=== PATIENT | male | born 1950 | race Caucasian/White ===

== ENCOUNTER 2019-09-22 07:32 | Outpatient (CLI) | payer MEDICARE, OTHER, SELFPAY ==
--- NOTE | ~2019-09-22 | CT_ITS ---
EXAMINATION: CT lung screening EXAM DATE: 09/22/2019 07:57 INDICATION: Personal history of nicotine dependence. TECHNIQUE: Spiral low dose CT of the chest without contrast. Axial, coronal and sagittal images were reviewed. The dose-length product (DLP) for this examination was 144.93 mGy-cm. The exposure was t ailored according to patient size (auto mA exposure control), and iterative reconstruction (ASIR) was used as additional dose reduction technique. 07/04/2018 FINDINGS: There is moderate emphysema. Minimal biapical scarring. There is a right-sided aortic arch . Tracheobronchial tree is patent. There is no mediastinal, hilar or axillary lymphadenopathy. T here are no pleural or pericardial effusions. There is no pneumothorax. Heart normal in size. T here is mild coronary arterial calcification, arterial sclerosis. There are cholecystectomy clips. T here is mild thoracic spondylosis without osteoblastic or osteolytic lesions identified. IMPRESSION: Lung-RADS category 1, negative (<1%chance of malignancy); recommend continued LDCT screen ing in 1 year. Reviewed, dictated and finalized at location A. GER FIBER IMPRESSION: Lung-RADS category 1, negative (<1%chance of malignancy); recommend continued LDCT screening in 1 year.
== END 2019-09-22 07:33 | disposition home or self-care (01) ==
LOC: ANHIMG 07:36
PROVIDERS: PCP Family Medicine; Visit Provider Internal Medicine Critical Care Medicine
DX: Z09 Encounter for follow-up examination after completed treatment for conditions other than malignant neoplasm (principal); Z12.2 Encounter for screening for malignant neoplasm of respiratory organs; Z87.891 Personal history of nicotine dependence
CPT/HCPCS: G0297

== ENCOUNTER 2019-10-03 09:55 | Outpatient (CLI) | payer MEDICARE, SELFPAY ==
--- NOTE | ~2019-10-03 | CT_ITS ---
EXAMINATION: CT abdomen w con INDICATION: Unspecified abdominal pain, weight loss TECHNIQUE: Computed tomographic images of the abdomen were obtained after the administration of 100 c c of Omnipaque 350 intravenous contrast. The dose-length product (DLP) was 347.39 mGy-cm. Automated e xposure control and iterative reconstruction technique were employed. COMPARISON: None FINDINGS: Minimal dependent atelectasis is present in the lung bases. The heart size is normal. The g allbladder is surgically absent. Fluid attenuation lesions of the liver measuring up to 13 there are no pathologically enlarged abdominal lymph nodes. There is severe lumbar spondylosis. Mm are consiste nt with cysts. The spleen, pancreas, and adrenal glands are normal. The kidneys are unremarkable. IMPRESSION: 1. No CT correlate for the patient's symptoms. Reviewed, dictated and finalized at location A. GLUER
[2019-10-03 10:34] LABS: Blood Urea Nitrogen 19 mg/dL (8-26); Estimated Glomerular Filt Rate > 60
== END 2019-10-03 09:56 | disposition home or self-care (01) ==
PROVIDERS: PCP Family Medicine; Visit Provider Family Medicine
DX: R10.9 Unspecified abdominal pain (principal); R63.4 Abnormal weight loss
CPT/HCPCS: 74160; Q9967

== ENCOUNTER 2020-04-13 09:45 | Inpatient (IN) | payer OTHER, MEDICARE, SELFPAY ==
[2020-04-13] VITALS (9 sets, daily range): BP systolic 112–159; BP diastolic 70–77; PULSE 73–91; RESP 18–29; TEMP 37.1–37.6; O2SAT 93–100; BMI 26.4
--- NOTE | ~2020-04-13 | XR_ITS ---
EXAMINATION: XR chest 1V portable DATE: 04/13/2020 10:52 INDICATION: Shortness of breath and cough. TECHNIQUE: A single frontal view of the chest was obtained. COMPARISON: Chest 2 views 03/13/2019, chest CT 09/22/2019 FINDINGS: The lungs are hyperexpanded with lucencies, consistent with emphysema. No pleural effusion. The heart size is normal. There is a right-sided aortic arch. IMPRESSION: 1. Emphysema. Reviewed, dictated and finalized at location B. IMPRESSION: 1. Emphysema.
--- NOTE | 2020-04-13 09:49 | ECG_ITS ---
Measurements Intervals [place] Rate: 88 P: 84 FL: 198 QRS: 37 QRSD: 91 T: 66 QT: 329 QTc: 400 Interpretive Statements SINUS RHYTHM BORDERLINE AV CONDUCTION DELAY BASELINE ARTIFACT- II, III, AVR, AVL, AVF, V1 BORDERLINE ECG Electronically Signed On 04-13-2020 10:23:44 CDT by Juve Saldana D.O.
[2020-04-13] MEDS: LACTATED RINGERS 1,000 ML 999 ML IV CONT (10:23)
[2020-04-13 10:38] LABS: Base Excess ABG -0.5 mEq/l (+/-2.0); Carboxyhemoglobin 1.2 % THb (0-2.0); Device ROOM AIR; Fractional Inspired Oxygen 21 %; HCO3 ABG 23.9 mEq/l (22.0-26.0); Methemoglobin ABG 0.1 %THb (0-1.5); Oxygen Content ABG 17.7 %vol (16.0-22.0); Oxygen Saturation ABG 89.7 % (95.0-100.0); Oxyhemoglobin 89.8 % THb (90.0-100.0); PCO2 ABG 38.7 mmHg (35.0-45.0); PO2 ABG 56.4 mmHg (80.0-100.0); PO2 FiO2 Ratio Arterial Blood 2.69 %; Reduced Hemoglobin 8.9 %THb (0-5.0); Site Drawn LEFT BRACHIAL; pH ABG 7.409 (7.350-7.450)
--- NOTE | 2020-04-13 10:44 | PC.NURSE ---
Pt placed on 2 L NC O2 due to O2 sat 89% on room air.
[2020-04-13 10:47] LABS: Basophils Percent Auto 0.4 % (0.2-1.2); Eosinophils Percent Auto 0.4 % (0-4.4); Hematocrit 42.2 % (42.0-52.0); Hemoglobin 13.8 g/dL (14.0-18.0); Immature Granulocyte Absolute 0.06 K/mm3 (0.00-0.031); Immature Granulocyte Percent A 0.6 % (0-0.5); Lymphocytes Absolute Auto 1.17 K/mm3 (0.9-3.2); Lymphocytes Percent Auto 11.4 % (18.3-44.2); Mean Corpuscular HGB Conc 32.7 g/dl (32-36); Mean Corpuscular Hemoglobin 28.8 pg (26-34); Mean Corpuscular Volume 87.9 fl (80-100); Monocytes Absolute Auto 0.8 K/mm3 (0.1-0.6); Monocytes Percent Auto 7.6 % (2.6-8.5); Neutrophils Absolute Auto 8.2 K/mm3 (1.3-6.7); Neutrophils Percent Auto 79.6 % (45.5-73.1); Platelet Count Result 175 k/mm3 (150-375); Red Cell Distribution Width 13.4 % (11.5-14.5); White Blood Count 10.2 K/mm3 (4.5-10.0)
[2020-04-13 10:53] LABS: Add Urine Microscopic? NO; Appearance Urine Clear (Clear); Bilirubin Urine Negative (Negative); Blood Urine Negative (Negative); Color Urine Yellow (Yellow); Glucose Urine UA Negative (Negative); Ketones Urine Negative (Negative); Leukocyte Esterase Ur Negative LEU/UL (Negative); Nitrate Urine Negative (Negative); Protein Urine Negative (Negative); Specific Grav Ur 1.024 (1.001-1.035); Urobilinogen Urine Negative mg/dL (<2.0)
[2020-04-13 10:59] LABS: Prothrombin Time 13.1 Seconds (11.1-14.7)
[2020-04-13 11:00] LABS: Partial Thromboplastin Time 26.9 SECONDS (22.3-36.8)
[2020-04-13 11:00] LABS: Lactic Acid Reflex 0.8 mmol/L (0.7-2.1)
[2020-04-13 11:11] LABS: Alanine Aminotransferase 20 U/L (4-50); Albumin Level 3.9 g/dL (3.5-5.1); Alkaline Phosphatase 74 U/L (38-126); Anion Gap 7 mmol/L (8-16); Aspartate Amino Transferase 27 U/L (17-59); Bilirubin,Total 0.8 mg/dL (0.2-1.3); Blood Urea Nitrogen 17 mg/dL (9-20); CRP 1.9 mg/dL (<1.0); Calcium 8.6 mg/dL (8.4-10.2); Carbon Dioxide 25 mmol/L (22-30); Chloride 105 mmol/L (98-107); Estimated CRCL calculation 76 ml/min; Estimated Glomerular Filt Rate > 60; Glucose 120 mg/dL (75-110); Lipase 81 U/L (23-300); Potassium 3.9 mmol/L (3.4-5.0); Sodium 137 mmol/L (137-145)
--- NOTE | 2020-04-13 12:18 | ED.GENADULT ---
HPI - General Adult General Chief complaint: Shortness of Breath/Dyspnea <Douglas Walden PA-C - Last Filed: 04/13/20 12:34> Stated complaint: SOB <Douglas Walden PA-C - Last Filed: 04/13/20 12:34> Time Seen by Provider: 04/13/20 10:09 <Douglas Walden PA-C - Last Filed: 04/13/20 12:34> Source: patient <Douglas Walden PA-C - Last Filed: 04/13/20 12:34> Mode of arrival: ambulatory <Douglas Walden PA-C - Last Filed: 04/13/20 12:34> Limitations: no limitations <Douglas Walden PA-C - Last Filed: 04/13/20 12:34> History of Present Illness HPI narrative: Patient is a 70-year-old male who presents per EMS for evaluation of dyspnea which began with runny nose cough congestion patient with history of COPD wears 2 L nasal cannula. Patient denies any pain patient denies sick contacts. Patient notes that the symptoms worsen with activity patient denies any vomiting notes he has had a few loose stools. . Patient denies any chest pain <Douglas Waldne PA-C - Last Filed: 04/13/20 12:34> Related Data Home medications: Home Medications Medication Instructions Recorded Confirmed gabapentin 100 mg PO TID 04/13/20 04/13/20 <HEBER Villegas Last Filed: 04/13/20 12:34> Allergies/adverse reactions: Allergies Allergy/AdvReac Type Severity Reaction Status Date / Time No Known Allergies Allergy Verified 04/13/20 15:19 <Douglas Walden PA-C - Last Filed: 04/13/20 12:34> Review of Systems Review of Systems: All systems reviewed & are unremarkable except as noted in HPI and below <Douglas Walden PA-C - Last Filed: 04/13/20 12:34> [facility] Past Medical History Medical History: Medical History Cholecystitis COPD (chronic obstructive pulmonary disease) Deviated nasal septum Emphysema of lung Fatigue First degree atrioventricular block Lumbar spondylosis Palmar fibromatosis Tobacco abuse <Douglas Walden PA-C - Last Filed: 04/13/20 12:34> Surgical History Surgical History: Surgical History History of bladder surgery History of prostate surgery Hx laparoscopic cholecystectomy Hx of abdominal prostatectomy <Douglas Walden PA-C - Last Filed: 04/13/20 12:34> Social History Social History: Social History Social History: Single 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 day: 1 Smoking cigarettes per day: 20.0 Years smoked: 49 Smoking pack-years: 49.00 Smoking status: Former smoker Tobacco type: cigarettes Second hand tobacco smoke exposure: Yes Smoking end date: 08/19/11 Alcohol intake: current Drinks per week: 6 Substance use: never Substance use type: does not use Gender identity (if verbalized by the patient): Male Spiritual care concerns: No <Douglas Walden PA-C - Last Filed: 04/13/20 12:34> Exam Narrative: Exam Narrative: GENERAL: Ill-appearing, well-nourished, and in no acute distress. HEAD: Normocephalic, atraumatic. EYES: PERRLA and EOMI. ENT: Nares clear, no rhinorrhea or epistaxis. Mucous membranes moist. Oropharynx without tonsillar hypertrophy exudate or other lesions. NECK: Supple. No adenopathy or masses. CHEST: Diminished on auscultation. Mild respiratory distress. Fine wheezes throughout no rales or rhonchi HEART: Regular rate and rhythm. No murmur heard. Normal peripheral pulses. ABDOMEN: Soft, nontender, nondistended EXTREMITIES: Normal range of motion. No edema. SKIN: Warm, dry, no rash. NEURO: No focal deficits. Alert and oriented x3. PSYCH: Normal mood and affect. <Douglas Walden PA-C - Last Filed: 04/13/20 12:34> Course Course Emergency Course: Patient in the room at this time aware of case findings treatment plan and diagnosis will be placed in hospital for COPD exacerbation while ruling out COPD c
[2020-04-13] MEDS: methylPREDNISolone SOD SUCC 125 MG VIAL IV PUSH (12:57)
--- NOTE | 2020-04-13 14:15 | ADMGEN ---
This patient, Stacy Peck II, was admitted to [facility] Surg Room 324-01. Patient/family oriented to hospital policies and general routines including ID bracelet, bed and alarms, visiting hours, pain management, procedures, bathroom and other care routines, personal items, smoking policy, room service/diet, and visiting hours. Valuables list has been completed. Information on how to activate the Rapid Response Team has been discussed. Patient/Family are encouraged to report perceived risks to care and to ask questions if they do not understand what they are told or what they should do.
[2020-04-13] MEDS: LACTATED RINGERS 1,000 ML 75 ML IV CONT (15:23)
[2020-04-13] MEDS: ALBUTEROL SULFATE (*SP) INHALER 6 PUFF INHALATION ×2 (16:56→20:59)
--- NOTE | 2020-04-13 20:58 | PM.IMHP ---
H&P: HPI History of Present Illness Date/Time: 04/13/20 20:58 Chief complaint: copd exacerbation,fever,hypoxemia Narrative: Stacy Peck II is a 70 year old male with a past medical history of COPD, dementia, and hyperlipidemia who presented to the ER with 3 days of cold symptoms and shortness of breath. the patient reports a 2 days ago he began having significant rhinorrhea and a mild tickling cough. The next day his cough worsened. he reports that the cough has been productive of small amount of green sputum. He was last hospitalized for COPD exacerbation February 2019. He called off of work due to his symptoms. He was not having any fevers or chills. He denies any known COVID-19 exposures. 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 He denies any nausea or vomiting. He has been having normal bowel movements without hematochezia or melena. He has been having some chest tightness and discomfort associated with his cough. He denies any orthopnea or paroxysmal nocturnal dyspnea. He has been more fatigued. He denies any headache or visual changes. He has not noticed any lower extremity swelling or pain. He has noticed weaker urinary stream and difficulty initiating urinary stream at times. He used to be on Flomax many years ago but stopped this medication I suspect he stopped it after his prostate surgery. He also has intermittent episodes of incomplete bladder emptying . He does not usually have difficulty with nocturia. He denies any dysuria or hematuria. The patient was recently started on Aricept due to episodes of confusion. He is having difficulty remembering directions in remembering which exits he needs to get off to go to his various stops for his job. He has been going to the same destination is for quite some time but cannot remember how to get there. Review of Systems Review of Systems: Narrative: 12 systems were reviewed with pertinent positives and negatives per HPI. Except as documented in the HPI, all other systems were reviewed and are negative. [facility] Past Medical History Medical History (Updated 04/13/20 @ 21:15 by Rina Chanel DO) Dementia 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 Hyperlipidemia Lumbar spondylosis Palmar fibromatosis Peripheral neuropathy Tobacco abuse quit 2012 Surgical History Surgical History (Updated 04/14/20 @ 09:13 by Rina Chanel DO) History of bladder surgery Due to bladder lesion History of nasal septoplasty History of prostatectomy Hx laparoscopic cholecystectomy Family History Family History Mother Cerebrovascular accident Heart disease Breast cancer Father Liver disease Grandparent Malignant neoplasm of prostate Sibling Coronary artery disease brother Diabetes mellitus Psychiatric illness sister Social History Social History (Updated 04/14/20 @ 09:17 by Rina Chanel DO) Social History: The patient is and lives with a female friend and her 2 pit bulls. He has a 52 pack per year smoking history. He started smoking between ages 9 in 10 and quit smoking in 2012. He drinks 2-6 beers a week on average. 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 day: 1 Smoking cigarettes per day: 20.0 Years smoked: 52 Smoking pack-years: 52.00 Smoking status: Former smoker Tobacco type: cigarettes Second hand tobacco smoke exposure: Yes Smoking end date: 08/19/12 Alcohol intake: current Drinks per week: 6 Substance use: never Substance use type: does not use Gender identity (if verbalized by the patient): Male Spiritual care concerns: No Meds Home Medications and Allergies Home Medications Medication Instructions Recorded Confirmed Type fluticasone fur. 100 mcg-umeclid 1 inhalation INHALATION D
[2020-04-13] MEDS: FAMOTIDINE 20 MG/2 ML VIAL IV PUSH (21:08)
[2020-04-13] MEDS: GABAPENTIN 100 MG CAPSULE PO (21:58)
[2020-04-13] MEDS: DONEPEZIL HCL 5 MG TABLET PO (21:58)
[2020-04-13 22:47] LABS: SARS-CoV-2 RNA PCR Negative
[2020-04-14] VITALS (8 sets, daily range): BP systolic 123–148; BP diastolic 60–64; PULSE 77–99; RESP 18–20; TEMP 36.6–36.8; O2SAT 94–96
[2020-04-14] MEDS: LACTATED RINGERS 1,000 ML 75 ML IV CONT (03:48)
[2020-04-14 08:23] LABS: Basophils Percent Auto 0.2 % (0.2-1.2); Hematocrit 40.1 % (42.0-52.0); Hemoglobin 13.1 g/dL (14.0-18.0); Immature Granulocyte Absolute 0.03 K/mm3 (0.00-0.031); Immature Granulocyte Percent A 0.3 % (0-0.5); Lymphocytes Absolute Auto 0.84 K/mm3 (0.9-3.2); Lymphocytes Percent Auto 8.8 % (18.3-44.2); Mean Corpuscular HGB Conc 32.7 g/dl (32-36); Mean Corpuscular Hemoglobin 28.7 pg (26-34); Mean Corpuscular Volume 87.7 fl (80-100); Monocytes Absolute Auto 1.2 K/mm3 (0.1-0.6); Monocytes Percent Auto 12.5 % (2.6-8.5); Neutrophils Absolute Auto 7.5 K/mm3 (1.3-6.7); Neutrophils Percent Auto 78.2 % (45.5-73.1); Platelet Count Result 152 k/mm3 (150-375); Red Blood Count 4.57 M/mm3 (4.6-6.20); Red Cell Distribution Width 13.4 % (11.5-14.5); White Blood Count 9.6 K/mm3 (4.5-10.0)
[2020-04-14 08:43] LABS: Anion Gap 6 mmol/L (8-16); Blood Urea Nitrogen 16 mg/dL (9-20); Calcium 8.3 mg/dL (8.4-10.2); Carbon Dioxide 27 mmol/L (22-30); Chloride 105 mmol/L (98-107); Estimated CRCL calculation 85 ml/min; Estimated Glomerular Filt Rate > 60; Glucose 150 mg/dL (75-110); Magnesium 1.8 mg/dL (1.6-2.3); Potassium 3.9 mmol/L (3.4-5.0); Sodium 138 mmol/L (137-145)
[2020-04-14] MEDS: ALBUTEROL SULFATE (*SP) INHALER 6 PUFF INHALATION ×4 (08:55→21:26)
[2020-04-14] MEDS: ENOXAPARIN 40 MG/0.4 ML SYRINGE SUB-Q (10:24)
[2020-04-14] MEDS: FAMOTIDINE 20 MG/2 ML VIAL IV PUSH (10:24)
[2020-04-14] MEDS: DONEPEZIL HCL 5 MG TABLET PO ×2 (10:25→17:55)
[2020-04-14] MEDS: GABAPENTIN 100 MG CAPSULE PO ×3 (10:25→17:55)
[2020-04-14] MEDS: ATORVASTATIN 20 MG TABLET PO (10:25)
--- NOTE | 2020-04-14 12:11 | PM.IMPN ---
Progress Note: A&P Assessment and Plan (1) COPD exacerbation: Code(s): J44.1 - Chronic obstructive pulmonary disease with (acute) exacerbation Status: Acute Assessment and Plan: COVID testing negative today. The patient received 1 dose of IV Solu-Medrol in the ER. He thinks he has slight improvement today, but still SOB and having sputum production. Will place the patient on 60 mg IV Solu-Medrol q.8 hours. Will order albuterol inhaler 6 puffs Q 6 hours and Spiriva. Will continue patient's home Trelegy inhaler. Will also place on IV Rocephin for now or mild-mod COPD exacerbation; monitor for improvement (2) Hypoxemia: Code(s): R09.02 - Hypoxemia Status: Acute Assessment and Plan: without actual hypoxia. Possibly due to slightly mixed specimen. Treat COPD exacerbation as above Wean O2 as tolerated (3) Dementia: Code(s): F03.90 - Unspecified dementia without behavioral disturbance Status: Acute Assessment and Plan: No acute issues Continue home medications (4) Hyperlipidemia: Code(s): E78.5 - Hyperlipidemia, unspecified Status: Acute Assessment and Plan: LFTs wnl Continue statin (5) Peripheral neuropathy: Code(s): G62.9 - Polyneuropathy, unspecified Status: Acute Assessment and Plan: No acute issues continue home gabapentin Subjective Date/time seen: 04/14/20 12:11 Interval history: Patient is a 70 yo M with history of COPD, dementia, and hyperlipidemia who is here for treatment of COPD exacerbation and COVID r/o; COVID testing negative today. Patient states he feels slightly better today. Still SOB and cough with green/yellow sputum. No other complaints at the moment. Denies subjective f/c/s, myalgias/arthralgias, headaches, dizziness, lightheadedness, changes in v/h, cp/palpitations, n/v/d/c, abd pain, changes in BMs, dysuria, hematuria, cloudy urine, calf pain/swelling. Review of Systems Review of Systems: All systems reviewed & are unremarkable except as noted in HPI and below Exam Narrative: Exam Narrative: General: Patient resting supine in bed in no acute distress. Speaking in shortened sentences. Satting mid 90s on 2L O2 NC HEENT: Normocephalic, EOMI, oral mucosa moist. Cardiovascular: Rate and rhythm are regular. No notable murmur, rub, or gallop. Respiratory: Diffuse expiratory wheeze; diminished breath sounds in all lung curran. Non-labored breathing. Speaking in shortened sentences. Satting mid 90s on 2L O2 NC Abdomen: Soft, non-tender, non-distended, bowel sounds present. Extremities: Peripheral pulses intact. No edema. Neuro: No focal neurological deficits. Speech is clear. Objective Data Vital Signs Vital Signs: Last Vital Signs Temp 97.9 F 04/14/20 08:00 Pulse 77 04/14/20 08:00 Resp 20 04/14/20 08:00 BP 134/60 04/14/20 08:00 Pulse Ox 95 04/14/20 08:58 Intake/Output Intake/Output: Intake & Output 04/11/20 04/12/20 04/13/20 04/14/20 23:59 23:59 23:59 23:59 Intake Total 1220 1540 Output Total 600 Balance 1220 940 Meds/Results Medications: Active Medications Generic Name Dose Route Start Last Admin Trade Name Freq PRN Reason Stop Dose Admin Acetaminophen 650 mg 04/14/20 11:44 Tylenol Tablet PO Q6H PRN Mild Pain (1-3) or Fever Albuterol 6 puff 04/13/20 16:00 04/14/20 11:45 Proventil Hfa INHALATION 6 puff QIDRT COLTON Administration Atorvastatin Calcium 20 mg 04/14/20 09:00 04/14/20 10:25 Lipitor PO 20 mg DAILY COLTON Administration Donepezil HCl 5 mg 04/13/20 21:20 04/14/20 10:25 Aricept PO 5 mg BID COLTON Administration Enoxaparin Sodium 40 mg 04/14/20 09:00 04/14/20 10:24 Lovenox SUB-Q 40 mg JIAN
[2020-04-14] MEDS: methylPREDNISolone SOD SUCC 125 MG VIAL 60 MG IV PUSH ×2 (14:18→22:04)
[2020-04-15] VITALS (8 sets, daily range): BP systolic 133–143; BP diastolic 60–66; PULSE 67–90; RESP 18–20; TEMP 36.4–36.9; O2SAT 91–96
[2020-04-15] MEDS: methylPREDNISolone SOD SUCC 125 MG VIAL 60 MG IV PUSH ×2 (06:20→21:00)
[2020-04-15 07:01] LABS: Hematocrit 36.5 % (42.0-52.0); Hemoglobin 11.7 g/dL (14.0-18.0); Immature Granulocyte Absolute 0.04 K/mm3 (0.00-0.031); Immature Granulocyte Percent A 0.5 % (0-0.5); Lymphocytes Absolute Auto 1.29 K/mm3 (0.9-3.2); Lymphocytes Percent Auto 16.6 % (18.3-44.2); Mean Corpuscular HGB Conc 32.1 g/dl (32-36); Mean Corpuscular Hemoglobin 28.4 pg (26-34); Mean Corpuscular Volume 88.6 fl (80-100); Mean Platelet Volume 10.5 fl (7.4-10.4); Monocytes Absolute Auto 0.4 K/mm3 (0.1-0.6); Monocytes Percent Auto 4.7 % (2.6-8.5); Neutrophils Absolute Auto 6.1 K/mm3 (1.3-6.7); Neutrophils Percent Auto 78.2 % (45.5-73.1); Platelet Count Result 157 k/mm3 (150-375); Red Blood Count 4.12 M/mm3 (4.6-6.20); Red Cell Distribution Width 13.7 % (11.5-14.5); White Blood Count 7.8 K/mm3 (4.5-10.0)
[2020-04-15 07:15] LABS: Alanine Aminotransferase 24 U/L (4-50); Albumin Level 3.5 g/dL (3.5-5.1); Alkaline Phosphatase 67 U/L (38-126); Anion Gap 6 mmol/L (8-16); Aspartate Amino Transferase 25 U/L (17-59); Bilirubin,Total 0.3 mg/dL (0.2-1.3); Blood Urea Nitrogen 21 mg/dL (9-20); Calcium 8.4 mg/dL (8.4-10.2); Carbon Dioxide 26 mmol/L (22-30); Chloride 105 mmol/L (98-107); Estimated CRCL calculation 76 ml/min; Estimated Glomerular Filt Rate > 60; Glucose 236 mg/dL (75-110); Potassium 4.4 mmol/L (3.4-5.0); Sodium 137 mmol/L (137-145)
[2020-04-15] MEDS: ALBUTEROL SULFATE (*SP) INHALER 6 PUFF INHALATION ×3 (08:44→15:28)
[2020-04-15] MEDS: GABAPENTIN 100 MG CAPSULE PO ×3 (10:17→18:13)
[2020-04-15] MEDS: DONEPEZIL HCL 5 MG TABLET PO ×2 (10:17→18:13)
[2020-04-15] MEDS: ATORVASTATIN 20 MG TABLET PO (10:17)
--- NOTE | 2020-04-15 13:24 | PM.IMPN ---
Progress Note: A&P Assessment and Plan (1) COPD exacerbation: Code(s): J44.1 - Chronic obstructive pulmonary disease with (acute) exacerbation Status: Acute Assessment and Plan: COVID testing negative this hospital stay. Afebrile. The patient received 1 dose of IV Solu-Medrol in the ER. Clinical improvement today Will decrease frequency of 60 mg IV Solu-Medrol to q.12 hours. Will order albuterol inhaler 6 puffs Q 6 hours and Spiriva. Will continue patient's home Trelegy inhaler if able to obtain from home; NF Will start PRN neb treatments Will continue IV Rocephin for now for mild-mod COPD exacerbation; monitor for improvement Add mucinex and PEP CPT (2) Hypoxemia: Code(s): R09.02 - Hypoxemia Status: Acute Assessment and Plan: without actual hypoxia. Possibly due to slightly mixed specimen. Treat COPD exacerbation as above Wean O2 as tolerated (3) Dementia: Code(s): F03.90 - Unspecified dementia without behavioral disturbance Status: Acute Assessment and Plan: No acute issues Continue home medications (4) Hyperlipidemia: Code(s): E78.5 - Hyperlipidemia, unspecified Status: Acute Assessment and Plan: LFTs wnl Continue statin (5) Peripheral neuropathy: Code(s): G62.9 - Polyneuropathy, unspecified Status: Acute Assessment and Plan: No acute issues continue home gabapentin Subjective Date/time seen: 04/15/20 13:24 Interval history: Patient is a 70 yo M with history of COPD, dementia, and hyperlipidemia who is here for treatment of COPD exacerbation and COVID r/o; COVID testing negative today. Patient states he feels better today. SOB better. Still has congestion and he is trying to cough up more sputum. Notes green/yellow sputum. No other complaints at the moment. Denies subjective f/c/s, myalgias/arthralgias, headaches, dizziness, lightheadedness, changes in v/h, cp/palpitations, n/v/d/c, abd pain, changes in BMs, dysuria, hematuria, cloudy urine, calf pain/swelling. Review of Systems Review of Systems: All systems reviewed & are unremarkable except as noted in HPI and below Exam Narrative: Exam Narrative: General: Patient resting supine in bed in no acute distress. Speaking in longer sentences today. Satting mid 90s on 2L O2 NC HEENT: Normocephalic, EOMI, oral mucosa moist. Cardiovascular: Rate and rhythm are regular. No notable murmur, rub, or gallop. Respiratory: Diffuse expiratory wheeze comparable to yesterday; diminished breath sounds in all lung curran. Non-labored breathing. Speaking in longer sentences. Satting mid 90s on 2L O2 NC Abdomen: Soft, non-tender, non-distended, bowel sounds present. Extremities: Peripheral pulses intact. No edema. Neuro: No focal neurological deficits. Speech is clear. Objective Data Vital Signs Vital Signs: Last Vital Signs Temp 97.5 F L 04/15/20 06:00 Pulse 78 04/15/20 08:47 Resp 18 04/15/20 06:00 BP 137/66 04/15/20 06:00 Pulse Ox 95 04/15/20 08:47 Intake/Output Intake/Output: Intake & Output 04/12/20 04/13/20 04/14/20 04/15/20 23:59 23:59 23:59 23:59 Intake Total 1220 3340 490 Output Total 1075 Balance 1220 8325 490 Meds/Results Medications: Active Medications Generic Name Dose Route Start Last Admin Trade Name Freq PRN Reason Stop Dose Admin Acetaminophen 650 mg 04/14/20 11:44 Tylenol Tablet PO Q6H PRN Mild Pain (1-3) or Fever Albuterol 6 puff 04/13/20 16:00 04/15/20 11:20 Proventil Hfa INHALATION 6 puff QIDRT COLTON Administration Albuterol 2.5 mg 04/15/20 13:20 Albuterol Sulf Neb 2.5mg/0.5ml INHALATION Q6HRT PRN Shortness Of Breath Atorvastatin Calcium 20 mg 04/14/20 09:00 0
[2020-04-15] MEDS: guaiFENesin 12 HR 600 MG TABCR 1200 MG PO ×2 (14:01→20:59)
[2020-04-15] MEDS: ALBUTEROL SULFATE NEB 2.5 MG/0.5 ML INH INHALATION ×2 (15:28→20:38)
[2020-04-15] MEDS: IPRATROPIUM BR 0.02% INH SOLN 0.5 MG/2.5 ML VIAL INHALATION ×2 (15:29→20:38)
[2020-04-16 06:00] VITALS: BP 131/64; PULSE 61; RESP 18; TEMP 36.8; O2SAT 93
[2020-04-16 06:50] LABS: Hematocrit 35.1 % (42.0-52.0); Hemoglobin 11.4 g/dL (14.0-18.0); Immature Granulocyte Absolute 0.07 K/mm3 (0.00-0.031); Immature Granulocyte Percent A 0.8 % (0-0.5); Lymphocytes Absolute Auto 1.79 K/mm3 (0.9-3.2); Lymphocytes Percent Auto 19.8 % (18.3-44.2); Mean Corpuscular HGB Conc 32.5 g/dl (32-36); Mean Corpuscular Hemoglobin 28.9 pg (26-34); Mean Corpuscular Volume 88.9 fl (80-100); Monocytes Absolute Auto 0.4 K/mm3 (0.1-0.6); Monocytes Percent Auto 4.6 % (2.6-8.5); Neutrophils Absolute Auto 6.8 K/mm3 (1.3-6.7); Neutrophils Percent Auto 74.8 % (45.5-73.1); Platelet Count Result 170 k/mm3 (150-375); Red Blood Count 3.95 M/mm3 (4.6-6.20); Red Cell Distribution Width 13.5 % (11.5-14.5); White Blood Count 9.1 K/mm3 (4.5-10.0)
[2020-04-16 06:52] LABS: Anion Gap 4 mmol/L (8-16); Blood Urea Nitrogen 23 mg/dL (9-20); Carbon Dioxide 27 mmol/L (22-30); Chloride 105 mmol/L (98-107); Estimated CRCL calculation 85 ml/min; Estimated Glomerular Filt Rate > 60; Glucose 207 mg/dL (75-110); Magnesium 1.9 mg/dL (1.6-2.3); Potassium 4.6 mmol/L (3.4-5.0); Sodium 136 mmol/L (137-145)
[2020-04-16] MEDS: ALBUTEROL SULFATE (*SP) INHALER 6 PUFF INHALATION ×2 (08:47→12:52)
[2020-04-16] MEDS: DONEPEZIL HCL 5 MG TABLET PO ×2 (09:01→16:50)
[2020-04-16] MEDS: ATORVASTATIN 20 MG TABLET PO (09:01)
[2020-04-16] MEDS: GABAPENTIN 100 MG CAPSULE PO ×3 (09:01→16:50)
[2020-04-16] MEDS: guaiFENesin 12 HR 600 MG TABCR 1200 MG PO ×2 (09:02→20:55)
[2020-04-16] MEDS: methylPREDNISolone SOD SUCC 125 MG VIAL 60 MG IV PUSH ×2 (09:02→20:55)
[2020-04-16 14:00] VITALS: BP 133/62; PULSE 88; RESP 18; TEMP 36.8; O2SAT 94
--- NOTE | 2020-04-16 16:19 | PM.IMPN ---
Progress Note: A&P Assessment and Plan (1) COPD exacerbation: Code(s): J44.1 - Chronic obstructive pulmonary disease with (acute) exacerbation Status: Acute Assessment and Plan: COVID testing negative this hospital stay. Afebrile. No satting in low-mid 90s on RA. Ambulating okay. Clinical improvement today, although still diffusely wheezing and he is still noting congestion Continue 60 mg Solu-Medrol q.12 hours IV Will do albuterol inhaler 6 puffs PRN Q 6 hours and Spiriva. Will continue patient's home Trelegy inhaler if able to obtain from home; NF Will start scheduled neb treatments per patient request Will continue IV Rocephin for now for mild-mod COPD exacerbation; monitor for improvement Continue mucinex and PEP CPT (2) Hypoxemia: Code(s): R09.02 - Hypoxemia Status: Acute Assessment and Plan: without actual hypoxia. Possibly due to slightly mixed specimen. Treat COPD exacerbation as above Supplemental O2 as needed (3) Dementia: Code(s): F03.90 - Unspecified dementia without behavioral disturbance Status: Acute Assessment and Plan: No acute issues Continue home medications (4) Hyperlipidemia: Code(s): E78.5 - Hyperlipidemia, unspecified Status: Acute Assessment and Plan: LFTs wnl Continue statin (5) Peripheral neuropathy: Code(s): G62.9 - Polyneuropathy, unspecified Status: Acute Assessment and Plan: No acute issues continue home gabapentin (6) Urinary hesitancy: Code(s): R39.11 - Hesitancy of micturition Status: Acute Assessment and Plan: He states he has had this in the past and was on Flomax at one time but unsure why he stopped this medication Will start 0.4 mg Flomax daily Monitor F/u with PCP Subjective Date/time seen: 04/16/20 16:19 Interval history: Patient is a 70 yo M with history of COPD, dementia, and hyperlipidemia who is here for treatment of COPD exacerbation and COVID r/o; COVID testing negative today. Patient states he feels better today, although still wheezing and congested. He is not quite comfortable going home yet, but thinks he is trending in the right direction and may be more comfortable tomorrow. SOB better and is on RA. Still has congestion and he is trying to cough up more sputum. Sputum white/green. Wishes to have scheduled neb treatments with PRN albuterol inhaled. He also is asking about restarting Flomax as he has difficulty starting a stream. He notes being on this at one time but is unsure why he stopped taking the medication. He has been up ambulating without difficulty as well. No other complaints at the moment. Denies subjective f/c/s, myalgias/arthralgias, headaches, dizziness, lightheadedness, changes in v/h, cp/palpitations, n/v/d/c, abd pain, changes in BMs, dysuria, hematuria, cloudy urine, calf pain/swelling. Review of Systems Review of Systems: All systems reviewed & are unremarkable except as noted in HPI and below Exam Narrative: Exam Narrative: General: Patient resting supine in bed in no acute distress. Sat low-mid 90s on RA. Comfortable HEENT: Normocephalic, EOMI, oral mucosa moist. Cardiovascular: Rate and rhythm are regular. No notable murmur, rub, or gallop. Respiratory: Diffuse expiratory wheeze improved from yesterday; diminished breath sounds in all lung curran. Non-labored breathing. Speaking in full sentences. Satting low-mid 90s on RA Abdomen: Soft, non-tender, non-distended, bowel sounds present. Extremities: Peripheral pulses intact. No edema. Neuro: No focal neurological deficits. Speech is clear. Objective Data Vital Signs Vital Signs: Last Vital Signs Temp 98.2 F 04/16/20 14:00
[2020-04-16] MEDS: TAMSULOSIN HCL 0.4 MG CAPSULE PO (18:48)
[2020-04-16] MEDS: IPRATROPIUM BR 0.02% INH SOLN 0.5 MG/2.5 ML VIAL INHALATION (20:07)
[2020-04-16] MEDS: ALBUTEROL SULFATE NEB 2.5 MG/0.5 ML INH INHALATION (20:07)
[2020-04-16 20:09] VITALS: PULSE 72; RESP 20; O2SAT 92
[2020-04-16 20:19] VITALS: PULSE 76; RESP 20
[2020-04-16 21:56] VITALS: BP 125/60; PULSE 81; RESP 16; TEMP 36.8; O2SAT 91
[2020-04-17] MEDS: ALBUTEROL SULFATE NEB 2.5 MG/0.5 ML INH INHALATION ×2 (02:31→09:31)
[2020-04-17 02:32] VITALS: PULSE 61; RESP 20
[2020-04-17] MEDS: IPRATROPIUM BR 0.02% INH SOLN 0.5 MG/2.5 ML VIAL INHALATION ×2 (02:32→09:31)
[2020-04-17 02:41] VITALS: PULSE 66; RESP 20
[2020-04-17 06:00] VITALS: BP 154/71; PULSE 79; RESP 16; TEMP 36.8; O2SAT 93
[2020-04-17 07:12] LABS: Basophils Percent Auto 0.4 % (0.2-1.2); Hemoglobin 11.9 g/dL (14.0-18.0); Immature Granulocyte Absolute 0.23 K/mm3 (0.00-0.031); Immature Granulocyte Percent A 2.3 % (0-0.5); Lymphocytes Absolute Auto 2.11 K/mm3 (0.9-3.2); Lymphocytes Percent Auto 20.8 % (18.3-44.2); Mean Corpuscular HGB Conc 32.2 g/dl (32-36); Mean Corpuscular Hemoglobin 28.4 pg (26-34); Mean Corpuscular Volume 88.3 fl (80-100); Mean Platelet Volume 10.7 fl (7.4-10.4); Monocytes Absolute Auto 0.6 K/mm3 (0.1-0.6); Monocytes Percent Auto 5.4 % (2.6-8.5); Neutrophils Absolute Auto 7.2 K/mm3 (1.3-6.7); Neutrophils Percent Auto 71.1 % (45.5-73.1); Platelet Count Result 183 k/mm3 (150-375); Red Blood Count 4.19 M/mm3 (4.6-6.20); Red Cell Distribution Width 13.4 % (11.5-14.5); White Blood Count 10.1 K/mm3 (4.5-10.0)
[2020-04-17 08:26] LABS: Anion Gap 5 mmol/L (8-16); Blood Urea Nitrogen 22 mg/dL (9-20); Calcium 8.2 mg/dL (8.4-10.2); Carbon Dioxide 28 mmol/L (22-30); Chloride 104 mmol/L (98-107); Estimated CRCL calculation 76 ml/min; Estimated Glomerular Filt Rate > 60; Glucose 204 mg/dL (75-110); Potassium 4.3 mmol/L (3.4-5.0); Sodium 137 mmol/L (137-145)
[2020-04-17] MEDS: GABAPENTIN 100 MG CAPSULE PO ×2 (08:59→12:46)
[2020-04-17] MEDS: DONEPEZIL HCL 5 MG TABLET PO (08:59)
[2020-04-17] MEDS: ATORVASTATIN 20 MG TABLET PO (08:59)
[2020-04-17] MEDS: TAMSULOSIN HCL 0.4 MG CAPSULE PO (08:59)
[2020-04-17] MEDS: methylPREDNISolone SOD SUCC 125 MG VIAL 60 MG IV PUSH (08:59)
[2020-04-17] MEDS: guaiFENesin 12 HR 600 MG TABCR 1200 MG PO (08:59)
[2020-04-17 09:32] VITALS: PULSE 81; RESP 16; O2SAT 94
[2020-04-17 09:37] VITALS: PULSE 89; RESP 18
--- NOTE | 2020-04-17 12:16 | PM.DS ---
DS: Admitting Diagnosis Admitting Diagnosis Admitting Diagnosis: copd exacerbation,fever,hypoxemia DS: Discharge Diagnosis Discharge Diagnosis (1) COPD exacerbation: Code(s): J44.1 - Chronic obstructive pulmonary disease with (acute) exacerbation Status: Acute Assessment and Plan: COVID testing negative this hospital stay. Afebrile. No satting in low-mid 90s on RA. Ambulating okay. Clinical improvement today, although still diffusely wheezing and he is still noting congestion, but improving D/c today Will do prednisone taper Continue home meds Will do cefdinir through 04/20 Recommended continue mucinex and PEP CPT F/u with PCP and Snout Puller as outpatient (2) Hypoxemia: Code(s): R09.02 - Hypoxemia Status: Acute Assessment and Plan: without actual hypoxia. Possibly due to slightly mixed specimen. Treat COPD exacerbation as above Supplemental O2 as needed (3) Dementia: Code(s): F03.90 - Unspecified dementia without behavioral disturbance Status: Acute Assessment and Plan: No acute issues Continue home medications (4) Hyperlipidemia: Code(s): E78.5 - Hyperlipidemia, unspecified Status: Acute Assessment and Plan: LFTs wnl Continue statin (5) Peripheral neuropathy: Code(s): G62.9 - Polyneuropathy, unspecified Status: Acute Assessment and Plan: No acute issues continue home gabapentin (6) Urinary hesitancy: Code(s): R39.11 - Hesitancy of micturition Status: Acute Assessment and Plan: He states he has had this in the past and was on Flomax at one time but unsure why he stopped this medication will send home with flomax on discharge F/u with PCP DS: Summary Hospital Course Reason for hospitalization: COPD exacerbation Hospital Course: Patient is a 70 yo M with history of COPD, dementia, and hyperlipidemia who presented to the ER on 04/13 with 3 days of cold symptoms and shortness of breath. While in the ED, patient was tested for COIVD (found to be negative) for his reported respiratory symptoms and history. COPD exacerbation suspected and was started on Iv steroids, bronchodilator inhalers, and initially placed on droplet prec (no neb treatments). Placed on supplemental oxygen 2L O2 NC initially. Patient admitted under this setting. Please see H&P for further details. Presenting VS: Temp Pulse Resp BP Pulse Ox 99.1 F 84 23 H 159/77 H 93 04/13/20 09:50 04/13/20 09:50 04/13/20 09:50 04/13/20 09:50 04/13/20 09:50 Presenting Pertinent labs: COVID testing negative. ABG notable for 56.4 pO2 although felt to be mixed specimen. WBC 10.2k. CBC, coag, chemistry, ABG, UA otherwise unremarkable Micro: BCx negative x2 after 5 days Imaging: Chest X-Ray 04/13/20 10:58 IMPRESSION: 1. Emphysema. ECG: Interpretive Statements SINUS RHYTHM BORDERLINE AV CONDUCTION DELAY BASELINE ARTIFACT- II, III, AVR, AVL, AVF, V1 BORDERLINE ECG Patient was admitted to the hospitalist service for further evaluation and treatment of COPD exacerbation. Patient continued with IV steroid therapy during stay and was discharged on a prednisone taper. He was placed on neb treatments after COVID testing was negative and taken of droplet precautions. Mucinex, CPT PEP, and supplemental oxygen continued during stay. He was weaned to RA on 04/16. He was also placed on IV rocephin for moderate COPD exacerbation. Patient had significant clinical improvement in his respiratory status by discharge. He also complained of urinary hesitancy and was placed on Flomax; this was prescribed at discharge as well. Plan was for him to follow up with PCP and his Snout Puller after discharge. He was given a prednisone t
== END 2020-04-17 14:20 | disposition home or self-care (01) | DRG 192 ==
LOC: ANHED 12:34 → ANH3MEDSUR 14:08
PROVIDERS: Emergency Medicine Emergency Medical Services; Physician Assistant; Admitting Provider Internal Medicine; Emergency Provider General Practice; PCP Family Medicine; Visit Provider Internal Medicine
DX: J43.9 Emphysema, unspecified (principal); Z20.828 Contact with and (suspected) exposure to other viral communicable diseases; R09.02 Hypoxemia; E78.5 Hyperlipidemia, unspecified; F03.90 Unspecified dementia, unspecified severity, without behavioral disturbance, psychotic disturbance, mood disturbance, and anxiety; G62.9 Polyneuropathy, unspecified; R39.11 Hesitancy of micturition; M47.896 Other spondylosis, lumbar region; I44.0 Atrioventricular block, first degree; Z87.891 Personal history of nicotine dependence; Z90.49 Acquired absence of other specified parts of digestive tract
CPT/HCPCS: 36415; 36600; 71045; 80048; 80053; 81003; 82375; 82805; 83050; 83605; 83690; 83735; 85025; 85610; 85730; 86140; 87040; 87635; 93005; 94640; 94667; 96361; 96365; 96375; 97161; 97165; 99285; A9270; C9803; J0131; J0696; J1650; J2930; J7120; U0003

== ENCOUNTER 2020-04-26 21:17 | Emergency (ER) | payer OTHER, MEDICARE, SELFPAY ==
[2020-04-26] VITALS (7 sets, daily range): BP systolic 102–129; BP diastolic 54–77; PULSE 79–100; RESP 15–28; TEMP 36.9–37.1; O2SAT 92–94
--- NOTE | ~2020-04-26 | XR_ITS ---
EXAMINATION: XR chest 2V EXAM DATE: 04/26/2020 21:56 INDICATION: Shortness of breath, congestion. TECHNIQUE: Frontal and lateral projections of the chest obtained and reviewed. Comparison is made to prior examination from 04/13/2020. FINDINGS: Moderate hyperinflation. There are cholecystectomy clips. The lungs are clear. There are no pleural effusions. Normal heart size. Patient has a right-sided or bifurcated aortic arch, congeni megan variant There is no pneumothorax suspected. The bones and soft tissues are unremarkable. There is no significant interval change. IMPRESSION: 1. No acute cardiopulmonary findings. 2. Hyperinflation. Reviewed, dictated and finalized at location A.
--- NOTE | 2020-04-26 21:20 | ECG_ITS ---
Measurements Intervals [place] Rate: 89 P: 83 FL: 180 QRS: -5 QRSD: 81 T: 67 QT: 313 QTc: 382 Interpretive Statements SINUS RHYTHM LOW VOLTAGE- LIMB LEADS BORDERLINE ECG Electronically Signed On 04-27-2020 7:19:00 CDT by Juve Saldana D.O.
--- NOTE | 2020-04-26 21:26 | ED.SOB ---
HPI - SOB/Dyspnea General Chief Complaint: Shortness of Breath/Dyspnea Stated Complaint: congestion Time Seen by Provider: 04/26/20 21:26 History of Present Illness HPI Narrative: 70 yo male w/ COPD presents to the ED for cough and SOLIS. He reports that he has had a cough and chest congestion for 10 days. He was admitted to the hospital near the begining of his symptoms. He was started on antibiotics and prednisone. He reports that he has not had any improvement in his cough and he is nt able to maintain his normal activity level. No fever, chest pain, leg swelling. Related Data Home Medications Medication Instructions Recorded Confirmed gabapentin 100 mg PO TID 04/13/20 04/22/20 Allergies Allergy/AdvReac Type Severity Reaction Status Date / Time No Known Allergies Allergy Verified 04/13/20 15:19 Review of Systems Review of Systems: All systems reviewed & are unremarkable except as noted in HPI and below Constitutional: Constitutional: Denies fever(s) ENT: Denies sore throat Cardiovascular: Cardiovascular: Denies chest pain Respiratory: Respiratory: Reports chest congestion, Reports cough and Reports dyspnea Gastrointestinal: Gastrointestinal: Denies abdominal pain and Denies nausea Musculoskeletal: Musculoskeletal: Denies back pain Neurologic: Denies dizziness and Denies weakness PMFSH Past Medical History Medical History Dementia 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 Hyperlipidemia Lumbar spondylosis Palmar fibromatosis Peripheral neuropathy Tobacco abuse quit 2012 Surgical History Surgical History History of bladder surgery Due to bladder lesion History of nasal septoplasty History of prostatectomy Hx laparoscopic cholecystectomy Family History Family History Mother Cerebrovascular accident Heart disease Breast cancer Father Liver disease Grandparent Malignant neoplasm of prostate Sibling Coronary artery disease brother Diabetes mellitus Psychiatric illness sister Social History Social History Social History: The patient is and lives with a female friend and her 2 pit bulls. He has a 52 pack per year smoking history. He started smoking between ages 9 in 10 and quit smoking in 2012. He drinks 2-6 beers a week on average. 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 day: 1 Smoking cigarettes per day: 20.0 Years smoked: 52 Smoking pack-years: 52.00 Smoking status: Former smoker Tobacco type: cigarettes Second hand tobacco smoke exposure: Yes Smoking end date: 08/19/12 Alcohol intake: current Drinks per week: 6 Substance use: never Substance use type: does not use Gender identity (if verbalized by the patient): Male Spiritual care concerns: No Exam Const: General: no acute distress and alert Orientation/consciousness: patient oriented x3 HENMT: Head: normal to inspection Chest: Chest palpation & inspection: normal inspection of the chest Resp: Effort & Inspection: normal respiratory effort Auscultation: wheezes Cardio: Rate: regular rate Rhythm: regular rhythm GI: GI Palp: Yes Soft to palpation and No Tenderness to palpation present (GI) Skin: General skin exam: normal color Neuro: General: patient oriented x3, no focal motor deficits and CN's II-XI intact bilaterally Speech: normal speech Extrem: General: normal to inspection and no edema Course Vital Signs Vital signs: Vital Signs Temperature 36.9 C 04/26/20 21:21 Pulse Rate 96 04/26/20 21:21 Respiratory Rate 15 04/26/20 21:21 Blood Pressure 129/77 04/26/20 21:21 Pulse Oximetry 93 04/26/20 21:21
[2020-04-26 21:33] LABS: Basophils Percent Auto 0.3 % (0.2-1.2); Eosinophils Absolute Auto 0.1 K/mm3 (0-0.3); Eosinophils Percent Auto 0.8 % (0-4.4); Hematocrit 46.8 % (42.0-52.0); Immature Granulocyte Absolute 0.16 K/mm3 (0.00-0.031); Immature Granulocyte Percent A 1.1 % (0-0.5); Lymphocytes Absolute Auto 3.98 K/mm3 (0.9-3.2); Lymphocytes Percent Auto 26.6 % (18.3-44.2); Mean Corpuscular HGB Conc 32.1 g/dl (32-36); Mean Corpuscular Volume 90.3 fl (80-100); Mean Platelet Volume 9.8 fl (7.4-10.4); Monocytes Absolute Auto 1.2 K/mm3 (0.1-0.6); Monocytes Percent Auto 7.8 % (2.6-8.5); Neutrophils Absolute Auto 9.5 K/mm3 (1.3-6.7); Neutrophils Percent Auto 63.4 % (45.5-73.1); Platelet Count Result 226 k/mm3 (150-375); Red Blood Count 5.18 M/mm3 (4.6-6.20)
[2020-04-26 21:43] LABS: Anion Gap 7 mmol/L (8-16); Blood Urea Nitrogen 21 mg/dL (9-20); Carbon Dioxide 31 mmol/L (22-30); Chloride 101 mmol/L (98-107); Estimated CRCL calculation 54 ml/min; Estimated Glomerular Filt Rate 55; Glucose 181 mg/dL (75-110); Potassium 4.5 mmol/L (3.4-5.0); Sodium 139 mmol/L (137-145)
[2020-04-26 21:52] LABS: NT Pro B Type Natriuretic Pept 117 PG/ML (5-100)
[2020-04-27 01:00] VITALS: BP 117/71; PULSE 75; RESP 24; O2SAT 93
[2020-04-27 01:45] VITALS: BP 122/75; PULSE 74; RESP 23; TEMP 36.4; O2SAT 93
== END 2020-04-27 01:48 | disposition home or self-care (01) ==
PROVIDERS: Emergency Medicine; Emergency Provider Emergency Medicine; PCP Family Medicine
DX: J44.9 Chronic obstructive pulmonary disease, unspecified (principal); F03.90 Unspecified dementia, unspecified severity, without behavioral disturbance, psychotic disturbance, mood disturbance, and anxiety; E78.5 Hyperlipidemia, unspecified; Z87.891 Personal history of nicotine dependence
CPT/HCPCS: 36415; 71046; 80048; 83880; 85025; 93005; 99284

== ENCOUNTER 2020-07-05 20:10 | Emergency (ER) | payer OTHER, MEDICARE, SELFPAY ==
--- NOTE | ~2020-07-05 | XR_ITS ---
EXAMINATION: XR chest 1V portable DATE: 07/05/2020 21:43 INDICATION: Cough, dyspnea and body aches TECHNIQUE: frontal view of the chest was obtained. COMPARISON: Chest radiograph dated 04/26/20 FINDINGS: Mild biapical pleural-parenchymal scarring. Hyperexpansion of the lungs with increased lucency and ar chitectural distortion in the upper lung zones consistent with moderate emphysema better appreciated on CT dated 09/22/2019. No focal airspace opacities, pulmonary edema, pleural effusion or pneumothorax. Heart size is normal. 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 IMPRESSION: 1. Emphysema without evident acute cardiopulmonary disease. Reviewed, dictated and finalized at location . T BAND SEPARATOR
[2020-07-05 20:15] VITALS: BP 135/62; PULSE 96; RESP 18; TEMP 37.3; O2SAT 96
--- NOTE | 2020-07-05 20:18 | ECG_ITS ---
Measurements Intervals [place] Rate: 95 P: 79 [place]: 179 QRS: 23 QRSD: 87 T: 62 QT: 311 QTc: 392 Interpretive Statements SINUS RHYTHM NORMAL ECG Electronically Signed On 07-06-2020 8:40:13 [employer] by Juve Saldana D.O.
[2020-07-05 20:32] LABS: Basophils Percent Auto 0.7 % (0.2-1.2); Eosinophils Absolute Auto 0.1 K/mm3 (0-0.3); Eosinophils Percent Auto 1.2 % (0-4.4); Hematocrit 42.1 % (42.0-52.0); Hemoglobin 13.8 g/dL (14.0-18.0); Immature Granulocyte Absolute 0.04 K/mm3 (0.00-0.031); Immature Granulocyte Percent A 0.7 % (0-0.5); Lymphocytes Absolute Auto 0.68 K/mm3 (0.9-3.2); Lymphocytes Percent Auto 11.4 % (18.3-44.2); Mean Corpuscular HGB Conc 32.8 g/dl (32-36); Mean Corpuscular Hemoglobin 28.6 pg (26-34); Mean Corpuscular Volume 87.3 fl (80-100); Mean Platelet Volume 9.7 fl (7.4-10.4); Monocytes Percent Auto 16.7 % (2.6-8.5); Neutrophils Absolute Auto 4.2 K/mm3 (1.3-6.7); Neutrophils Percent Auto 69.3 % (45.5-73.1); Platelet Count Result 197 k/mm3 (150-375); Red Blood Count 4.82 M/mm3 (4.6-6.20); Red Cell Distribution Width 13.8 % (11.5-14.5)
[2020-07-05 20:45] LABS: Anion Gap 9 mmol/L (8-16); Blood Urea Nitrogen 18 mg/dL (9-20); Calcium 9.2 mg/dL (8.4-10.2); Carbon Dioxide 27 mmol/L (22-30); Chloride 103 mmol/L (98-107); Estimated CRCL calculation 58 ml/min; Estimated Glomerular Filt Rate 60; Glucose 110 mg/dL (75-110); Potassium 4.1 mmol/L (3.4-5.0); Sodium 139 mmol/L (137-145)
--- NOTE | 2020-07-05 21:40 | ED.GENADULT ---
HPI - General Adult General Chief complaint: Unspecified Stated complaint: cough Time Seen by Provider: 07/05/20 21:36 History of Present Illness HPI narrative: 70 yo male w/ h/o COPD presents to the ED for feeling sick. Feeling bad since last night. He reports cough, SOB, GL[place]. No fever, CP, weakness. He has not tried anything for his symptoms he is concerned that he may have COVID-19. No known exposure. Related Data Home Medications Medication Instructions Recorded Confirmed gabapentin 100 mg PO TID 04/13/20 06/17/20 Allergies Allergy/AdvReac Type Severity Reaction Status Date / Time No Known Allergies Allergy Verified 06/22/20 15:05 Review of Systems Review of Systems: All systems reviewed & are unremarkable except as noted in HPI and below Constitutional: Constitutional: Denies fever(s) Cardiovascular: Cardiovascular: Denies chest pain Respiratory: Respiratory: Reports cough, Reports dyspnea and Reports wheezing Gastrointestinal: Gastrointestinal: Denies abdominal pain Neurologic: Denies confusion PMFSH Past Medical History Medical History Dementia Diarrhea 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 Hyperlipidemia Lumbar spondylosis Palmar fibromatosis Peripheral neuropathy Regurgitation and rechewing Tobacco abuse quit 2012 Surgical History Surgical History History of bladder surgery Due to bladder lesion History of nasal septoplasty History of prostatectomy Hx laparoscopic cholecystectomy Family History Family History Mother Cerebrovascular accident Heart disease Breast cancer Father Liver disease Grandparent Malignant neoplasm of prostate Sibling Coronary artery disease brother Diabetes mellitus Psychiatric illness sister Social History Social History Social History: The patient is and lives with a female friend and her 2 pit bulls. He has a 52 pack per year smoking history. He started smoking between ages 9 in 10 and quit smoking in 2012. He drinks 2-6 beers a week on average. 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 day: 1 Smoking cigarettes per day: 20.0 Years smoked: 52 Smoking pack-years: 52.00 Smoking status: Former smoker Tobacco type: cigarettes Second hand tobacco smoke exposure: Yes Smoking end date: 08/19/12 Alcohol intake: current Substance use: never Substance use type: does not use Gender identity (if verbalized by the patient): Male Spiritual care concerns: No Exam Const: General: cooperative and no acute distress Nutritional Appearance: well nourished Orientation/consciousness: patient oriented x3 HENMT: Head: normal to inspection Resp: Effort & Inspection: normal respiratory effort Auscultation: wheezes Cardio: Rate: regular rate Rhythm: regular rhythm GI: GI Palp: Yes Soft to palpation and No Tenderness to palpation present (GI) Skin: General skin exam: normal color Neuro: General: CN's II-XI intact bilaterally Cognition (Neuro): normal cognition Speech: normal speech Extrem: General: normal to inspection Course Vital Signs Vital signs: Vital Signs Temperature 37.3 C 07/05/20 20:15 Pulse Rate 96 07/05/20 20:15 Respiratory Rate 18 07/05/20 20:15 Blood Pressure 135/62 07/05/20 20:15 Pulse Oximetry 96 07/05/20 20:15 Temperature 37.3 C 07/05/20 20:15 Pulse Rate 76 07/05/20 22:30 Respiratory Rate 20 07/05/20 22:30 Blood Pressure 128/68 07/05/20 22:30 Pulse Oximetry 96 07/05/20 22:30 Medical Decision Making MDM Narrative Medical decision making narrative: OXygen saturation in the upper 90s on RABenji Burk
[2020-07-05 22:25] VITALS: RESP 20; O2SAT 95
[2020-07-05 22:30] VITALS: BP 128/68; PULSE 76; RESP 20; O2SAT 96
[2020-07-06 14:03] LABS: SARS-CoV-2 RNA PCR Positive
== END 2020-07-05 22:55 | disposition home or self-care (01) ==
PROVIDERS: Emergency Medicine; Emergency Provider Emergency Medicine; PCP Family Medicine
DX: U07.1 COVID-19 (principal); J06.9 Acute upper respiratory infection, unspecified; F03.90 Unspecified dementia, unspecified severity, without behavioral disturbance, psychotic disturbance, mood disturbance, and anxiety; E78.5 Hyperlipidemia, unspecified; G62.9 Polyneuropathy, unspecified; Z90.79 Acquired absence of other genital organ(s); Z87.891 Personal history of nicotine dependence; J43.9 Emphysema, unspecified
CPT/HCPCS: 36415; 71045; 80048; 85025; 87635; 93005; 96372; 99284; C9803; J1100; U0003

== ENCOUNTER 2020-07-06 07:37 | Outpatient (CLI) | payer OTHER, MEDICARE, SELFPAY ==
--- NOTE | 2020-07-17 07:43 | WPDPFTINT ---
PFT Interpretation PFT Interpretation: This PFT met all criteria for ATS standards and reproducibility FEV/FVC post bronchodilator 44% FEV1 54% or 1.68 liters FVC 81% or 3.78 liters FEV1 improved by 17% and 240 ml post bronchodilator challenge TLC 114% RV 153% RV/TLC 52% DLCO 53% when adjusted for alveolar volume but not adjusted for hemoglobin Flow volume loops showed severe expiratory coving Impression: Moderate airflow obstruction with good response to bronchodilators. Air trapping and moderately reduced diffusion capacity are also present. This pattern is suggestive of COPD with an Asthma component. Clinical correlation is advised.
--- NOTE | 2020-07-17 07:47 | WPDSIXMINUTE ---
Six Minute Walk Six Minute Walk: The patients O2 sats started at 94% and dropped as low as 89% Total walk distance 426.72 meters conclusion: Although there was significant exertion al hypoxia, he did not meet criteria for home oxygen therapy. Would recommend checking six minute walk test annually.
== END 2020-07-06 07:38 | disposition home or self-care (01) ==
PROVIDERS: PCP Family Medicine; Visit Provider Internal Medicine Critical Care Medicine
DX: J44.9 Chronic obstructive pulmonary disease, unspecified (principal)
CPT/HCPCS: 94060; 94618; 94726; 94729

== ENCOUNTER 2020-07-15 01:31 | Outpatient (CLI) | payer OTHER, MEDICARE, SELFPAY ==
[2020-07-15 21:25] LABS: SARS-CoV-2 RNA PCR Positive
== END 2020-07-15 01:32 | disposition home or self-care (01) ==
LOC: ANHCOVIDDT 01:31
PROVIDERS: PCP Family Medicine; Visit Provider Internal Medicine Gastroenterology
DX: Z01.812 Encounter for preprocedural laboratory examination (principal); U07.1 COVID-19
CPT/HCPCS: 87635; C9803; U0003

== ENCOUNTER 2020-08-22 00:31 | Outpatient (CLI) | payer OTHER, MEDICARE, SELFPAY ==
[2020-08-22 18:50] LABS: SARS-CoV-2 RNA PCR Negative
== END 2020-08-22 00:32 | disposition home or self-care (01) ==
LOC: ANHCOVIDDT 00:31
PROVIDERS: Physician Assistant; PCP Family Medicine; Visit Provider Internal Medicine Gastroenterology
DX: R68.89 Other general symptoms and signs (principal); Z20.828 Contact with and (suspected) exposure to other viral communicable diseases
CPT/HCPCS: C9803; U0003

== ENCOUNTER 2020-09-26 01:20 | Day surgery (SDC) | payer OTHER, MEDICARE, SELFPAY ==
[2020-07-06 14:26] VITALS: BMI 26.4
--- NOTE | 2020-07-16 08:47 | SUR.PREOP ---
0847 SPOKE WITH PATIENT IN REGARDS TO HIS POSITIVE COVID TEST RESULTS AND THAT HIS PROCEDURE WAS CANCELLED FOR SATURDAY. DISCUSSED COVID SYMPTOMS, PATIENT COMPLAINS OF TIGHTNESS IN HIS CHEST, INSTRUCTED PATIENT TO FOLLOW UP WITH HIS PRIMARY CARE PHYSICIAN OR GO TO THE NEAREST EMERGENCY ROOM IF SYMPTOMS WORSENED. ALSO INSTRUCTED PATIENT TO REACH OUT TO HIS [facility] FOR FURTHER INSTRUCTIONS OR QUESTIONS. INSTRUCTED PATIENT TO FOLLOW UP WITH DR. YANG OFFICE REGARDING GETTING HIS PROCEDURE RESCHEDULED. PATIENT VOICED UNDERSTANDING.
[2020-08-09 16:11] VITALS: BMI 26.4
[2020-09-13 13:55] VITALS: BMI 26.4
[2020-09-26 08:24] VITALS: BMI 25.2
--- NOTE | 2020-09-26 08:25 | WPDANESEPPF ---
Anes - Initial Pre Proc Eval Procedure: Operation Date: 09/26/20 09:30 Proposed Procedures p Esophagogastroduodenoscopy & Colonoscopy - Juan Antonio Ferro MD Date/Time: 09/26/20 08:25 Surgeon: Juan Antonio Ferro MD Pre Op Diagnosis: nausea, vomiting, diarrhea Patient Data Age: 70 Gender: M Height: 1.85 m Weight: 91 kg Allergies Allergy/AdvReac Type Severity Reaction Status Date / Time No Known Allergies Allergy Verified 09/26/20 08:14 Home Medications Medication Instructions Recorded Confirmed Type tamsulosin 0.4 mg capsule 0.4 mg PO QAM #30 cap 06/06/20 07/06/20 Rx peg 3350-electrolytes 236 240 ml PO Q10M #4000 ml 06/20/20 09/26/20 Rx gram-22.74 gram-6.74 gram-5.86 gram solution gabapentin 100 mg capsule 100 mg PO TID #90 cap 07/24/20 08/09/20 Rx albuterol sulfate 90 mcg/actuation 1 inh INHALATION Q4H PRN #18 g 07/28/20 08/09/20 Rx aerosol inhaler memantine 5 mg tablet 5 mg PO BID #60 tablet 07/28/20 08/09/20 Rx pvcukpbzogn-jnqahuctk-axsiaglx 1 ea INHALATION DAILY 08/09/20 08/09/20 History [Trelegy Ellipta] atorvastatin 20 mg tablet 20 mg PO DAILY #30 tablet 09/05/20 09/13/20 Rx donepezil 10 mg PO BID 09/13/20 09/13/20 History Patient hx anesthesia problems: none Family hx anesthesia problems: none PMFSH Past Medical History Medical History Dementia Diarrhea 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 Hyperlipidemia Lumbar spondylosis Palmar fibromatosis Peripheral neuropathy Regurgitation and rechewing Tobacco abuse quit 2012 Surgical History Surgical History History of bladder surgery Due to bladder lesion History of nasal septoplasty History of prostatectomy Hx laparoscopic cholecystectomy Family History Family History Mother Cerebrovascular accident Heart disease Breast cancer Father Liver disease Grandparent Malignant neoplasm of prostate Sibling Coronary artery disease brother Diabetes mellitus Psychiatric illness sister Social History Social History (Reviewed 08/29/20 @ 09:08 by Nivia Rodrigues [facility]) Social History: The patient is and lives with a female friend and her 2 pit bulls. He has a 52 pack per year smoking history. He started smoking between ages 9 in 10 and quit smoking in 2012. He drinks 2-6 beers a week on average. 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 day: 1 Smoking cigarettes per day: 20.0 Years smoked: 52 Smoking pack-years: 52.00 Smoking status: Former smoker Tobacco type: cigarettes Second hand tobacco smoke exposure: Yes Smoking end date: 08/19/12 Alcohol intake: current Drinks per week: 6 Alcohol use details: drinks a 6 pack of beer a week Substance use: never Substance use type: does not use Living arrangements: alone Gender identity (if verbalized by the patient): Male Spiritual care concerns: No Anes - Eval Final PreProcedure Day of Procedure 09/26/20 08:25 Patient weight: overweight Heart: regular rate and rhythm Lungs: clear to auscultation and normal air movement Airway: Mallampati scale class II Neurological: alert and oriented Last oral intake: >/= 8 hours ASA classification: III Emergent: no Anesthetic plan: proceed Anesthesia type and monitoring: general GIVS Informed Consent: The patient's anesthetic plan and its attendant risks and benefits were discussed with the patient/family/POA. Questions were solicited and answers provided to the satisfaction of the patient/family/POA.
[2020-09-26] MEDS: LACTATED RINGERS 1,000 ML 150 ML IV CONT (08:40)
[2020-09-26 08:41] VITALS: BP 128/70; PULSE 50; RESP 18; TEMP 36.1; O2SAT 98
--- NOTE | 2020-09-26 08:44 | PM.HPGS ---
History of Present Illness History of Present Illness Consent: Risks, benefits, and alternatives have been discussed and questions answered. Patient agrees to proceed with procedure. Chief complaint: nausea, vomiting, diarrhea Narrative: Stacy Peck II is a 70 year old male with intermittent diarrhea and food regurgitation, he is not using ppi. Had scopes about 7 years ago. Review of Systems Constitutional: Constitutional: Denies headache(s) and Denies weakness Eyes: Eyes: Denies blurry vision ENT: Reports Normal hearing present, Denies headache(s) and Denies neck pain Cardiovascular: Cardiovascular: Denies chest pain and Denies dyspnea Respiratory: Respiratory: Denies dyspnea Gastrointestinal: Gastrointestinal: Reports no additional gastrointestinal complaints Genitourinary: Genitourinary: Denies dysuria Musculoskeletal: Musculoskeletal: Denies neck pain Integumentary/Breasts: Skin/Breast: Denies dry skin Neurologic: Reports Normal hearing present, Denies headache(s) and Denies weakness Psychiatric: Psychiatric: Denies anxiety Endocrine: Endocrine: Denies change in body appearance Hematologic/Lymphatic: Hematologic/Lymphatic: Denies easy bleeding Allergic/Immunologic: Allergic/Immunologic: Denies urticaria PMFSH Past Medical History Medical History Dementia Diarrhea 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 Hyperlipidemia Lumbar spondylosis Palmar fibromatosis Peripheral neuropathy Regurgitation and rechewing Tobacco abuse quit 2012 Surgical History Surgical History History of bladder surgery Due to bladder lesion History of nasal septoplasty History of prostatectomy Hx laparoscopic cholecystectomy Family History Family History Mother Cerebrovascular accident Heart disease Breast cancer Father Liver disease Grandparent Malignant neoplasm of prostate Sibling Coronary artery disease brother Diabetes mellitus Psychiatric illness sister Social History Social History Social History: The patient is and lives with a female friend and her 2 pit bulls. He has a 52 pack per year smoking history. He started smoking between ages 9 in 10 and quit smoking in 2012. He drinks 2-6 beers a week on average. 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 day: 1 Smoking cigarettes per day: 20.0 Years smoked: 52 Smoking pack-years: 52.00 Smoking status: Former smoker Tobacco type: cigarettes Second hand tobacco smoke exposure: Yes Smoking end date: 08/19/12 Alcohol intake: current Drinks per week: 6 Alcohol use details: drinks a 6 pack of beer a week Substance use: never Substance use type: does not use Living arrangements: alone Gender identity (if verbalized by the patient): Male Spiritual care concerns: No Meds Home Medications and Allergies Home Medications Medication Instructions Recorded Confirmed Type tamsulosin 0.4 mg capsule 0.4 mg PO QAM #30 cap 06/06/20 07/06/20 Rx peg 3350-electrolytes 236 240 ml PO Q10M #4000 ml 06/20/20 09/26/20 Rx gram-22.74 gram-6.74 gram-5.86 gram solution gabapentin 100 mg capsule 100 mg PO TID #90 cap 07/24/20 08/09/20 Rx albuterol sulfate 90 mcg/actuation 1 inh INHALATION Q4H PRN #18 g 07/28/20 08/09/20 Rx aerosol inhaler memantine 5 mg tablet 5 mg PO BID #60 tablet 07/28/20 08/09/20 Rx vhtiumthakd-jsijohcfo-ucchwezd 1 ea INHALATION DAILY 08/09/20 08/09/20 History [Trelegy Ellipta] atorvastatin 20 mg tablet 20 mg PO DAILY #30 tablet 09/05/20 09/13/20 Rx donepezil 10 mg PO BID 09/13/20 09/13/20 History Allergies Allergy/AdvReac Type
[2020-09-26 09:16] VITALS: BP 79/47; PULSE 55; RESP 23; O2SAT 96
[2020-09-26 09:26] VITALS: BP 84/47; PULSE 52; RESP 23; O2SAT 97
[2020-09-26 09:36] VITALS: BP 107/64; PULSE 48; RESP 22; O2SAT 99
[2020-09-26 09:42] VITALS: BP 118/69; PULSE 55; RESP 15; O2SAT 98
== END 2020-09-26 10:03 | disposition home or self-care (01) ==
PROVIDERS: PCP Family Medicine; Visit Provider Internal Medicine Gastroenterology
PROC: 0DJ08ZZ Inspection of Upper Intestinal Tract, Via Natural or Artificial Opening Endoscopic (ICD-10-PCS; CPT 43235; principal; 2020-09-26 09:30)
DX: R19.7 Diarrhea, unspecified (principal); D12.4 Benign neoplasm of descending colon; K57.30 Diverticulosis of large intestine without perforation or abscess without bleeding; K64.8 Other hemorrhoids; K44.9 Diaphragmatic hernia without obstruction or gangrene; K29.50 Unspecified chronic gastritis without bleeding; K86.89 Other specified diseases of pancreas; J44.9 Chronic obstructive pulmonary disease, unspecified; F03.90 Unspecified dementia, unspecified severity, without behavioral disturbance, psychotic disturbance, mood disturbance, and anxiety; I44.0 Atrioventricular block, first degree; E78.5 Hyperlipidemia, unspecified; G62.9 Polyneuropathy, unspecified; M47.816 Spondylosis without myelopathy or radiculopathy, lumbar region; Z87.891 Personal history of nicotine dependence
CPT/HCPCS: 45385; 45380; 43239; 88305; J2001; J2704; J7120

== ENCOUNTER → 2020-10-03 01:22 | Outpatient (CLI) | payer OTHER, MEDICARE, SELFPAY ==
[2020-10-03 19:35] LABS: SARS-CoV-2 RNA PCR Negative
== END ==
PROVIDERS: PCP Family Medicine; Visit Provider Plastic Surgery
DX: Z01.812 Encounter for preprocedural laboratory examination (principal); Z20.822 Contact with and (suspected) exposure to COVID-19
CPT/HCPCS: C9803; U0003; U0005

== ENCOUNTER 2020-10-06 01:09 | Day surgery (SDC) | payer OTHER, MEDICARE, SELFPAY ==
[2020-09-29 15:09] VITALS: BMI 25.6
[2020-10-06] VITALS (7 sets, daily range): BP systolic 123–140; BP diastolic 67–77; PULSE 53–74; RESP 16–20; TEMP 36.2–36.7; O2SAT 95–100
[2020-10-06] MEDS: LACTATED RINGERS 1,000 ML 30 ML IV CONT ×2 (07:00→09:25)
--- NOTE | 2020-10-06 07:04 | WPDANESEPPF ---
Anes - Initial Pre Proc Eval Procedure: Operation Date: 10/06/20 07:30 Proposed Procedures p Right Partial Palmar Fasciectomy - Ac Jin MD Date/Time: 10/06/20 07:04 Surgeon: Ac Jin MD Pre Op Diagnosis: Right Hand Dupuytren's Contracture Patient Data Age: 70 Gender: M Height: 6 ft 1 in Weight: 88 kg Allergies Allergy/AdvReac Type Severity Reaction Status Date / Time No Known Allergies Allergy Verified 10/06/20 06:56 Home Medications Medication Instructions Recorded Confirmed Type tamsulosin 0.4 mg capsule 0.4 mg PO QAM #30 cap 06/06/20 10/06/20 Rx albuterol sulfate 90 mcg/actuation 1 inh INHALATION Q4H PRN #18 g 07/28/20 10/06/20 Rx aerosol inhaler memantine 5 mg tablet 5 mg PO BID #60 tablet 07/28/20 10/06/20 Rx [id number]-[id number]-[id number] 1 ea INHALATION QAM 08/09/20 10/06/20 History [Trelegy Ellipta] atorvastatin 20 mg tablet 20 mg PO DAILY #30 tablet 09/05/20 10/06/20 Rx donepezil [Aricept] 10 mg PO DAILY 09/13/20 10/06/20 History gabapentin 100 mg PO QAM 09/29/20 10/06/20 History Patient hx anesthesia problems: none Family hx anesthesia problems: none PMFSH Past Medical History Medical History Dementia Diarrhea 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 Hyperlipidemia Lumbar spondylosis Palmar fibromatosis Peripheral neuropathy Regurgitation and rechewing Tobacco abuse quit 2012 Surgical History Surgical History History of bladder surgery Due to bladder lesion History of nasal septoplasty History of prostatectomy Hx laparoscopic cholecystectomy Family History Family History Mother Cerebrovascular accident Heart disease Breast cancer Father Liver disease Grandparent Malignant neoplasm of prostate Sibling Coronary artery disease brother Diabetes mellitus Psychiatric illness sister Social History Social History Social History: The patient is and lives with a female friend and her 2 pit bulls. He has a 52 pack per year smoking history. He started smoking between ages 9 in 10 and quit smoking in 2012. He drinks 2-6 beers a week on average. 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 day: 1 Smoking cigarettes per day: 20.0 Years smoked: 50 Smoking pack-years: 50.00 Smoking status: Former smoker Tobacco type: cigarettes Second hand tobacco smoke exposure: Yes Smoking end date: 02/16/13 Alcohol intake: current Drinks per week: 12 Substance use: never Substance use type: does not use Living arrangements: alone Gender identity (if verbalized by the patient): Male Spiritual care concerns: No Anes - Eval Final PreProcedure Day of Procedure 10/06/20 07:04 Patient weight: overweight Heart: regular rate and rhythm Lungs: clear to auscultation Airway: Mallampati scale class III Neurological: alert and oriented Last oral intake: >/= 8 hours ASA classification: III Emergent: no Anesthetic plan: proceed Anesthesia type and monitoring: general LMA and standard monitoring Informed Consent: The patient's anesthetic plan and its attendant risks and benefits were discussed with the patient/family/POA. Questions were solicited and answers provided to the satisfaction of the patient/family/POA.
--- NOTE | 2020-10-06 07:09 | WPDHPUPDATE1 ---
History and Physical Update Update Date/Time: 10/06/20 07:09 History and Physical has been reviewed, including an updated exam of the patient. There are NO changes in the patient's condition. Risks, benefits, and alternatives have been discussed and questions answered. Patient agrees to proceed with procedure.
[2020-10-06] MEDS: LIDO 1%/EPINEPHRINE 1:100,000 50 ML VIAL 10 ML INFILTRATE (07:46)
[2020-10-06] MEDS: BUPIVACAINE HCL 0.5% PF 30 ML VIAL INFILTRATE (09:09)
--- NOTE | 2020-10-06 09:39 | PM.PROC ---
Procedure Note - Detailed Date of procedure: 10/06/20 Pre-op diagnosis: Right Hand Dupuytren's Contracture Post-op diagnosis: same Procedure performed: Partial palmar fasciectomy of the right hand Description of procedure: The right hand was marked as the proper hand in the holding area. This patient was then taken to the operating room and placed supine on the operating table. A time-out was held and confirmed he was given general anesthesia with an LMA oblique the extremity was prepped and draped in usual fashion. The tourniquet was inflated to 250 mmHg. Markings for access had been marked in the palm. Of 1% lidocaine with epinephrine was infiltrated in the areas to be incised. The transverse incision was made 1st in the middle of the palm and cords were removed from the palm the 2 digits with significant contractures with the ring and the middle. The the middle required incision in the mid palm with later Z-plasty the middle finger also required the mid palmar inset incision and Z-plasty for closure. The cords were primarily pretendinous and lateral with a transverse retinacular cord between the 2. There was no spiral cord. There was no significant pretendinous cord on the fingers. The neurovascular bundles were not injured. The wound was closed with running 4-0 nylon sutures. The 2 Z-plasties were made in the middle finger and the and the single Z-plasty on the ring finger. The tourniquet was released prior to completion of the closure and the fingers all pinked up well. A bulky bandage was applied with a volar Ortho Glass splint stabilizing the ulnar 3 digits. Estimated blood loss was 5 milliliter. Total tourniquet time was approximately 75 minutes he is discharged home with a prescription for hydrocodone 5/325 10. 8 milliliter of half per % Marcaine were in infiltrated along the common digital nerves in the palm prior to the dressing application. Surgeon: Ac Jin MD
== END 2020-10-06 11:25 | disposition home or self-care (01) ==
PROVIDERS: PCP Family Medicine; Visit Provider Plastic Surgery
PROC: (CPT 26045; principal; 2020-10-06 07:30)
DX: M72.0 Palmar fascial fibromatosis [Dupuytren] (principal); J44.9 Chronic obstructive pulmonary disease, unspecified; E78.5 Hyperlipidemia, unspecified; I44.0 Atrioventricular block, first degree; F03.90 Unspecified dementia, unspecified severity, without behavioral disturbance, psychotic disturbance, mood disturbance, and anxiety; G62.9 Polyneuropathy, unspecified; M47.816 Spondylosis without myelopathy or radiculopathy, lumbar region; Z87.891 Personal history of nicotine dependence
CPT/HCPCS: 26123; 26125; A9270; C9803; J0330; J1100; J2405; J2704; J3010; J7120; U0003; U0005

== ENCOUNTER 2021-04-18 08:46 | Outpatient (CLI) | payer MEDICARE, SELFPAY ==
--- NOTE | ~2021-04-18 | CT_ITS ---
EXAMINATION: CT diagnostic chest wo con DATE: 04/18/2021 10:47 INDICATION: R91.8 - Other nonspecific abnormal finding of lung field TECHNIQUE: Computed tomography (CT) of the chest was performed without intravenous contrast as a scou t for planned CT-guided percutaneous lung biopsy which was subsequently deferred. Automated exposure control and iterative reconstruction technique were employed. The dose-length product was 70.70 mGy-c m. COMPARISON: Outside institution CT dated 03/11/2021 FINDINGS: Significant interval decrease in size of a previously 3.4 x 2.9 x 3.4 cm spiculated mass in the poste rior basilar right lower lobe which now measures 1.7 x 1.6 x 2.1 cm. On the prior study the mass appe ared cavitary with an approximately 1.1 cm central region of fluid attenuation. An enhancing pulmonar y artery also can be seen extending through the center of the mass without discernible architectural distortion which would be atypical for malignancy. Both the appearance on prior study as well as the interval decrease in size would be most consistent with an infectious/inflammatory etiology and the p lanned biopsy was deferred. Emphysema. No other pulmonary nodules, pneumonia, pulmonary edema or othe r pulmonary infiltrates within the visualized portions of the mid to lower lungs. Heart size is zarina l. No pericardial effusion. Small amount of atherosclerotic coronary artery calcification. IMPRESSION: 1. Significant decrease in size of a now 1.7 x 1.6 x 2.1 cm spiculated right lower lobe nodule most c onsistent with an infectious or inflammatory etiology and therefore biopsy was deferred. Would recomm end continued follow-up with 3 month low-dose noncontrast chest CT. Reviewed, dictated and finalized at location A. IMPRESSION: 1. Significant decrease in size of a now 1.7 x 1.6 x 2.1 cm spiculated right lo wer lobe nodule most consistent with an infectious or inflammatory etiology and therefore biopsy was deferred. Would recommend continued follow-up with 3 shavon h low-dose noncontrast chest CT.
[2021-04-18 09:40] LABS: Basophils Absolute Auto 0.1 K/mm3 (0.0-0.1); Basophils Percent Auto 0.8 % (0.2-1.2); Eosinophils Absolute Auto 0.1 K/mm3 (0-0.3); Eosinophils Percent Auto 1.6 % (0-4.4); Hematocrit 41.9 % (42.0-52.0); Hemoglobin 13.2 g/dL (14.0-18.0); Immature Granulocyte Absolute 0.07 K/mm3 (0.00-0.031); Immature Granulocyte Percent A 0.8 % (0-0.5); Lymphocytes Absolute Auto 3.85 K/mm3 (0.9-3.2); Lymphocytes Percent Auto 44.5 % (18.3-44.2); Mean Corpuscular HGB Conc 31.5 g/dl (32-36); Mean Corpuscular Hemoglobin 28.2 pg (26-34); Mean Corpuscular Volume 89.5 fl (80-100); Mean Platelet Volume 9.8 fl (7.4-10.4); Monocytes Absolute Auto 0.7 K/mm3 (0.1-0.6); Monocytes Percent Auto 7.9 % (2.6-8.5); Neutrophils Absolute Auto 3.9 K/mm3 (1.3-6.7); Neutrophils Percent Auto 44.4 % (45.5-73.1); Platelet Count Result 222 k/mm3 (150-375); Red Blood Count 4.68 M/mm3 (4.6-6.20); Red Cell Distribution Width 13.9 % (11.5-14.5); White Blood Count 8.7 K/mm3 (4.5-10.0)
[2021-04-18 09:51] LABS: INR 0.9; Prothrombin Time 11.9 Seconds (11.1-14.7)
[2021-04-18 10:13] LABS: Atypical Lymphocytes Present; Hypochromasia 1+ (NORMAL); Platelet Estimate Adequate (Adequate)
== END 2021-04-18 08:47 | disposition home or self-care (01) ==
PROVIDERS: Radiology Diagnostic Radiology; PCP Family Medicine; Visit Provider Internal Medicine Pulmonary Disease
DX: R91.8 Other nonspecific abnormal finding of lung field (principal)
CPT/HCPCS: 36415; 71250; 85025; 85610

== ENCOUNTER 2021-10-12 14:01 | Outpatient (CLI) | payer OTHER, MEDICARE, SELFPAY ==
--- NOTE | ~2021-10-12 | CT_ITS ---
EXAMINATION: CT diagnostic chest wo con DATE: 10/12/2021 14:19 INDICATION: Other nonspecific abnormal finding of the lung field, shortness of breath TECHNIQUE: Computed tomography (CT) of the chest was performed without intravenous contrast. The dose -length product (DLP) was 233.03 mGy-cm. Automated exposure control and iterative reconstruction tech [employer] were employed. COMPARISON: 04/18/2021, 03/11/2021 FINDINGS: There has been near complete interval resolution of the previously described right lower lo be nodule. No new or suspicious pulmonary nodule is identified. There is severe emphysema. The lungs are free of acute opacities. There is no pleural effusion or pneumothorax. A right-sided aortic arch is noted. There is calcified coronary artery atherosclerosis. Cholecystectomy clips are noted. IMPRESSION: 1. Continued interval decrease in size of a right lower lobe nodule, most consistent with resolving i nfection/inflammation. 2. Severe emphysema. Reviewed, dictated and finalized at location F. ORNAMENT MAKER IMPRESSION: 1. Continued interval decrease in size of a right lower lobe nodule, most consi stent with resolving infection/inflammation. 2. Severe emphysema.
== END 2021-10-12 14:02 | disposition home or self-care (01) ==
PROVIDERS: PCP Family Medicine; Visit Provider Internal Medicine Pulmonary Disease
DX: R91.8 Other nonspecific abnormal finding of lung field (principal); J43.9 Emphysema, unspecified
CPT/HCPCS: 71250

== ENCOUNTER 2022-04-13 16:38 | Emergency (ER) | payer OTHER, MEDICARE, SELFPAY ==
[2022-04-13] VITALS (12 sets, daily range): BP systolic 116–138; BP diastolic 65–92; PULSE 96–545; RESP 16–20; TEMP 36.2; O2SAT 95–99
--- NOTE | 2022-04-13 17:19 | ED.GENADULT ---
HPI - General Adult General Chief complaint: Urogenital-Male <Alondra Daley PA-C - Last Filed: 04/13/22 18:49> Stated complaint: urinary issues <Alondra Daley PA-C - Last Filed: 04/13/22 18:49> Time Seen by Provider: 04/13/22 17:12 <Alondra Daley PA-C - Last Filed: 04/13/22 18:49> History of Present Illness HPI narrative: Patient is 72-year-old male with a history of urinary retention here for evaluation of dysuria, urgency and burning with sensation of urinary retention for the past several days. Patient states that he followed with urology in the past for this issue, was offered surgery versus intermittent straight caths, and he elected for intermittent straight catheterization. Patient is not sure the etiology of his retention but he believes it might be his prostate. Patient states that he has not straight cath'd himself months as he notes that it is uncomfortable, but has not had significant issue. He denies any hematuria, fevers, chills, nausea, vomiting, abdominal pain, back pain or pelvic pain. <HEBER Bone Last Filed: 04/13/22 18:49> Related Data Allergies/adverse reactions: Allergies Allergy/AdvReac Type Severity Reaction Status Date / Time No Known Allergies Allergy Verified 04/13/22 17:09 <Alondra Daley PA-C - Last Filed: 04/13/22 18:49> Review of Systems Review of Systems: Gen: Denies fevers or chills Eyes: Denies eye pain or visual change ENT: Denies congestion Respiratory: Denies shortness of breath or cough CV: Denies chest pain or palpitations GI: Denies abdominal pain nausea, emesis or diarrhea reports urgency, burning, frequency. 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 Hyperlipidemia Lumbar spondylosis Palmar fibromatosis Peripheral neuropathy Regurgitation and rechewing Tobacco abuse quit 2012 <Alondra Daley PA-C - Last Filed: 04/13/22 18:49> Surgical History Surgical History: Surgical History History of bladder surgery Due to bladder lesion History of nasal septoplasty History of prostatectomy Hx laparoscopic cholecystectomy <Alondra Daley PA-C - Last Filed: 04/13/22 18:49> Family History Family History: Family History Mother Cerebrovascular accident Heart disease Breast cancer Father Liver disease Grandparent Malignant neoplasm of prostate Sibling Coronary artery disease brother Diabetes mellitus Psychiatric illness sister Lung cancer <Alondra Daley PA-C - Last Filed: 04/13/22 18:49> Social History Social History: Social History Social History: The patient is and lives with a female friend and her 2 pit bulls. He has a 52 pack per year smoking history. He started smoking between ages 9 in 10 and quit smoking in 2012. He drinks 2-6 beers a week on average. 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 day: 1 Smoking cigarettes per day: 20.0 Years smoked: 50 Smoking pack-years: 50.00 Smoking status: Former smoker Tobacco type: cigarettes Second hand tobacco smoke exposure: Yes Smoking end date: 02/16/13 Alcohol intake: current Drinks per week: 12 Alcohol use details: drinks a 6 pack of beer a week Substa
[2022-04-13 17:47] LABS: Appearance Urine Cloudy (Clear); Bilirubin Urine Negative (Negative); Color Urine Yellow (Yellow); Glucose Urine UA Negative (Negative); Ketones Urine Negative (Negative); Leukocyte Esterase Ur 3+ LEU/UL (Negative); Nitrate Urine Negative (Negative); Protein Urine Trace mg/dL (Negative); Specific Grav Ur 1.015 (1.001-1.035); Urobilinogen Urine 0.2 mg/dL (<2.0); pH Urine 6.5 (5.0-9.0)
[2022-04-13 17:48] LABS: Add Urine Microscopic? YES; Blood Urine Trace-Intact (Negative)
[2022-04-13 17:51] LABS: Budding Yeast Urine Present /hpf; Squamous Epithelial Cell Urine Rare /hpf (Few); WBC Clumps Urine Present /HPF; WBC Urine >75 /hpf
== END 2022-04-13 19:16 | disposition home or self-care (01) ==
PROVIDERS: Physician Assistant; Emergency Provider Emergency Medicine; PCP Family Medicine
DX: N39.0 Urinary tract infection, site not specified (principal); F03.90 Unspecified dementia, unspecified severity, without behavioral disturbance, psychotic disturbance, mood disturbance, and anxiety; J44.9 Chronic obstructive pulmonary disease, unspecified; E78.5 Hyperlipidemia, unspecified; G62.9 Polyneuropathy, unspecified; Z90.79 Acquired absence of other genital organ(s); Z87.891 Personal history of nicotine dependence
CPT/HCPCS: 51701; 81001; 87086; 87088; 99283

== ENCOUNTER 2022-10-15 14:29 | Outpatient (CLI) | payer OTHER, MEDICARE, SELFPAY ==
--- NOTE | ~2022-10-15 | US_ITS ---
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 COMPARISON: None. FINDINGS: Right and left brachial artery pressures of 116 mm Hg and 126 mm Hg, respectively, are concordant (no rmal difference <= 30 mmHg). The right high-thigh pressure index is 1.13 The right ankle-brachial index (WILLIE) is 1.13 (normal >= 0 .9-1.0). The right great toe-brachial index (TBI) is 0.45 (normal >= 0.60). The right lower extremity segmental pressure gradients are increased below the ankle (normal gradients <= 20-30 mmHg between a djacent levels on the same leg or the same levels on the two legs). Arterial Doppler waveforms are bi phasic. The left high-thigh pressure index is 1.06. The left WILLIE is 1.17. The left TBI is 0.71. The left lowe r extremity segmental pressure gradients are normal. Arterial Doppler waveforms are biphasic. IMPRESSION: 1. Normal bilateral ankle-brachial indices. 2: Diminished right toe brachial index consistent with mild peripheral arterial disease. Reviewed, dictated and finalized at location B. NTED HOGSHEAD ASSEMBLER IMPRESSION: 1. Normal bilateral ankle-brachial indices. 2: Diminished right toe brachial index consistent with mild peripheral arteria l disease.
== END 2022-10-15 14:30 | disposition home or self-care (01) ==
PROVIDERS: PCP Family Medicine; Visit Provider Family Medicine
DX: I73.9 Peripheral vascular disease, unspecified (principal)
CPT/HCPCS: 93923

== ENCOUNTER → 2022-10-15 15:43 | Outpatient (CLI) | payer OTHER, MEDICARE, SELFPAY ==
--- NOTE | ~2022-10-15 | CT_ITS ---
CT Scan of the Chest without Contrast: Clinical Indication: Lung cancer screening, personal history of tobacco dependence Technique: Contiguous sections were acquired throughout the chest without intravenous contrast. Dose reduction technique was used on this scan by utilizing automated exposure control and iterative recon struction technique. The dose-length product (DLP) was 159.12 mGy-cm. COMPARISON: 10/12/2021 and 09/22/2019 Findings: There is no evidence of any significant mediastinal, hilar or axillary lymphadenopathy. Right-sided a ortic arch with aberrant left subclavian artery noted. There are atherosclerotic calcifications of th e aorta. There is no evidence of pleural or pericardial effusion. There is severe emphysema. No pulmonary nodule identified. Images through the upper abdomen reveal cholecystectomy clips. Impression: Lung-RADS 1: Negative. [address] advised. Severe emphysema. Reviewed, dictated and finalized at [facility]. ING SHOW HOST Impression: Lung-RADS 1: Negative. [address] advised. Severe emphysema.
== END ==
PROVIDERS: PCP Family Medicine; Visit Provider Family Medicine
DX: Z12.2 Encounter for screening for malignant neoplasm of respiratory organs (principal); Z87.891 Personal history of nicotine dependence; J43.9 Emphysema, unspecified
CPT/HCPCS: 71271

== ENCOUNTER 2022-10-31 14:30 | Emergency (ER) | payer OTHER, MEDICARE, SELFPAY ==
[2022-10-31] VITALS (7 sets, daily range): BP systolic 127–144; BP diastolic 72–81; PULSE 73–94; RESP 16–20; TEMP 36.8; O2SAT 94–100
--- NOTE | ~2022-10-31 | XR_ITS ---
EXAMINATION: XR chest 2V DATE: 10/31/2022 16:02 INDICATION: Shortness of breath. TECHNIQUE: Frontal and lateral views of the chest were obtained on 3 radiographs. COMPARISON: Chest one view 07/05/2020, chest CT 10/15/2022 FINDINGS: There are lucencies in the lungs, consistent with emphysema. No pleural effusion or pneumot horax or the heart size is normal. There is a right-sided aortic arch with aberrant left subclavian a rtery. IMPRESSION: 1. Emphysema. Reviewed, dictated and finalized at location A. IMPRESSION: 1. Emphysema.
--- NOTE | 2022-10-31 15:00 | ECG_ITS ---
Measurements Intervals [place] Rate: 83 P: 83 VT: 196 QRS: 43 QRSD: 81 T: 78 QT: 330 QTc: 388 Interpretive Statements SINUS RHYTHM LOW QRS VOLTAGE IN LIMB LEADS BASELINE ARTIFACT- I, II, III, AVR, AVL, AVF, V1 BORDERLINE ECG COMPARED TO ECG 07/05/2020 20:27:52 NO SIGNIFICANT CHANGES Electronically Signed On 10-31-2022 15:57:45 CDT by Juve Saldana D.O.
[2022-10-31 15:25] LABS: Basophils Percent Auto 0.2 % (0.2-1.2); Eosinophils Absolute Auto 0.1 K/mm3 (0-0.3); Eosinophils Percent Auto 1.2 % (0-4.4); Hematocrit 43.3 % (42.0-52.0); Hemoglobin 13.8 g/dL (14.0-18.0); Immature Granulocyte Absolute 0.05 K/mm3 (0.00-0.031); Immature Granulocyte Percent A 0.5 % (0-0.5); Lymphocytes Absolute Auto 1.32 K/mm3 (0.9-3.2); Lymphocytes Percent Auto 14.4 % (18.3-44.2); Mean Corpuscular HGB Conc 31.9 g/dl (32-36); Mean Corpuscular Hemoglobin 29.3 pg (26-34); Mean Corpuscular Volume 91.9 fl (80-100); Mean Platelet Volume 9.7 fl (7.4-10.4); Monocytes Percent Auto 10.9 % (2.6-8.5); Neutrophils Absolute Auto 6.7 K/mm3 (1.3-6.7); Neutrophils Percent Auto 72.8 % (45.5-73.1); Platelet Count Result 267 k/mm3 (150-375); Red Blood Count 4.71 M/mm3 (4.6-6.20); Red Cell Distribution Width 13.2 % (11.5-14.5); White Blood Count 9.2 K/mm3 (4.5-10.0)
[2022-10-31 15:27] LABS: Alanine Aminotransferase 46 U/L (6-50); Albumin Level 3.9 g/dL (3.5-5.1); Alkaline Phosphatase 85 U/L (38-126); Anion Gap 4 mmol/L (8-16); Aspartate Amino Transferase 34 U/L (17-59); Bilirubin,Total 0.8 mg/dL (0.2-1.3); Blood Urea Nitrogen 18 mg/dL (9-20); Calcium 8.4 mg/dL (8.4-10.2); Carbon Dioxide 32 mmol/L (22-30); Chloride 106 mmol/L (98-107); Estimated CRCL calculation 74 ml/min; Estimated Glomerular Filt Rate > 60; Glucose 152 mg/dL (65-110); Potassium 4.1 mmol/L (3.4-5.0); Sodium 142 mmol/L (137-145)
[2022-10-31] MEDS: ALBUTEROL SULFATE NEB 2.5 MG/3 ML INH 15 MG INHALATION (17:42)
[2022-10-31 18:29] LABS: Influenza A QL RT-PCR Negative (Negative); Influenza B QL RT-PCR Negative (Negative); RSV RNA, RT-PCR Negative (Negative); SARS-CoV-2 RNA PCR Positive
--- NOTE | 2022-10-31 18:49 | ED.SOB ---
HPI - SOB/Dyspnea General Chief Complaint: Shortness of Breath/Dyspnea Stated Complaint: SOB, chest congstion, diarrhea, hx COPD Time Seen by Provider: 10/31/22 17:22 History of Present Illness HPI Narrative: This patient with history of COPD presenting with almost 2 weeks of not feeling the best, he had had URI symptoms with cough, nasal congestion and chest congestion, and a few days ago had some diarrhea. Recently had CT showing just emphysema but just feels different from usual COPD. Related Data Allergies Allergy/AdvReac Type Severity Reaction Status Date / Time No Known Allergies Allergy Verified 10/31/22 14:36 Review of Systems Review of Systems: CONST: No fever. HEENT: Congestion C/V: Congestion RESP: Cough GI: Diarrhea : No dysuria. M/S: No joint pain. SKIN: No rash. 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 Guttate psoriasis Hives Hyperlipidemia Hyperlipidemia type III Hyperlipidemia, acquired Hypoxemia Lumbar spondylosis Oropharyngeal dysphagia Palmar fibromatosis Panlobular emphysema Peripheral neuropathy Pharyngeal dysphagia Psychophysiological insomnia Regurgitation and rechewing SOB (shortness of breath) Tobacco abuse quit 2012 Weight gain Surgical History Surgical History History of bladder surgery Due to bladder lesion History of nasal septoplasty History of prostate surgery History of prostatectomy Hx laparoscopic cholecystectomy Family History Family History Mother Cerebrovascular accident Heart disease Breast cancer Father Liver disease Grandparent Malignant neoplasm of prostate Sibling Coronary artery disease brother Diabetes mellitus Psychiatric illness sister Lung cancer Social History Social History Social History: The patient is and lives with a female friend and her 2 pit bulls. He has a 52 pack per year smoking history. He started smoking between ages 9 in 10 and quit smoking in 2012. He drinks 2-6 beers a week on average. 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 day: 1 Smoking cigarettes per day: 20.0 Years smoked: 50 Smoking pack-years: 50.00 Smoking status: Former smoker Tobacco type: cigarettes Second hand tobacco smoke exposure: Yes Smoking end date: 02/16/13 Alcohol intake: current Drinks per week: 12 Alcohol use details: drinks a 6 pack of beer a week Substance use: never Substance use type: does not use Living arrangements: with family Occupation/Education: occupation Gender identity (if verbalized by the patient): Male Sexual Orientation (if Verbalized by the Patient): Straight or Heterosexual Spiritual care concerns: No Exam Narrative: EXAMINATION OF ORGAN SYSTEMS/BODY AREAS: Constitutional: Vital signs per nursing GENERAL:[No acute distress, non-toxic appearing.] HEAD: Normal with no signs of head trauma. EYES: EOMI, conjunctiva normal ENT: Hearing grossly intact LUNGS: Nonlabored breathing. Diminished breath sounds. HEART: [Regular rate and rhythm] ABD: [Soft], [nontender to palpation] EXT: Normal range of motion SKIN: [No rashes or lesions.] NEURO: [Alert and oriented x 3. No gross focal sensory or strength deficits.] PSYCH: Normal affect Course Vital Signs Vital signs: Vital Signs Temperature
[2022-10-31] MEDS: predniSONE 20 MG TABLET 40 MG PO (18:54)
== END 2022-10-31 19:05 | disposition home or self-care (01) ==
PROVIDERS: Emergency Medicine; Emergency Provider Emergency Medicine; PCP Family Medicine
DX: U07.1 COVID-19 (principal); J44.9 Chronic obstructive pulmonary disease, unspecified; I25.10 Atherosclerotic heart disease of native coronary artery without angina pectoris; F03.90 Unspecified dementia, unspecified severity, without behavioral disturbance, psychotic disturbance, mood disturbance, and anxiety; E78.5 Hyperlipidemia, unspecified; Z87.891 Personal history of nicotine dependence
CPT/HCPCS: 36415; 71046; 80053; 85025; 87637; 93005; 94640; 99283; J7512

== ENCOUNTER 2023-05-27 08:35 | Outpatient (CLI) | payer BC, MEDICARE, SELFPAY ==
[2023-05-27 09:28] LABS: Basophils Absolute Auto 0.1 K/mm3 (0.0-0.1); Basophils Percent Auto 0.8 % (0.2-1.2); Eosinophils Absolute Auto 0.2 K/mm3 (0-0.3); Eosinophils Percent Auto 2.8 % (0-4.4); Hematocrit 41.3 % (42.0-52.0); Immature Granulocyte Absolute 0.03 K/mm3 (0.00-0.031); Immature Granulocyte Percent A 0.4 % (0-0.5); Lymphocytes Absolute Auto 2.71 K/mm3 (0.9-3.2); Lymphocytes Percent Auto 32.8 % (18.3-44.2); Mean Corpuscular HGB Conc 31.5 g/dl (32-36); Mean Corpuscular Hemoglobin 28.7 pg (26-34); Mean Corpuscular Volume 91.2 fl (80-100); Mean Platelet Volume 10.1 fl (7.4-10.4); Monocytes Absolute Auto 0.7 K/mm3 (0.1-0.6); Neutrophils Absolute Auto 4.5 K/mm3 (1.3-6.7); Neutrophils Percent Auto 54.2 % (45.5-73.1); Platelet Count Result 219 k/mm3 (150-375); Red Blood Count 4.53 M/mm3 (4.6-6.20); Red Cell Distribution Width 13.5 % (11.5-14.5); White Blood Count 8.3 K/mm3 (4.5-10.0)
[2023-05-27 09:41] LABS: Alanine Aminotransferase 22 U/L (6-50); Albumin Level 3.8 g/dL (3.5-5.1); Alkaline Phosphatase 77 U/L (38-126); Anion Gap 5 mmol/L (8-16); Aspartate Amino Transferase 24 U/L (17-59); Bilirubin,Total 0.4 mg/dL (0.2-1.3); Blood Urea Nitrogen 17 mg/dL (9-20); Calcium 8.5 mg/dL (8.4-10.2); Carbon Dioxide 28 mmol/L (22-30); Chloride 106 mmol/L (98-107); Cholesterol 203 mg/dL (0-200); Estimated Glomerular Filt Rate > 60; Glucose 125 mg/dL (65-110); HDL Direct 40 mg/dL; Potassium 4.3 mmol/L (3.4-5.0); Sodium 139 mmol/L (137-145); Triglycerides 73 mg/dL (<150)
[2023-05-27 09:52] LABS: LDL Cholesterol Direct 131 mg/dL
[2023-05-29 14:43] LABS: PSA, Free 0.76 ng/mL; PSA, Total 4.9 ng/mL (<=4.0); Percent Free Prostate Spec Ag 16 % (>25)
== END 2023-05-27 08:36 | disposition home or self-care (01) ==
PROVIDERS: PCP Family Medicine; Visit Provider Physician Assistant
DX: N40.1 Benign prostatic hyperplasia with lower urinary tract symptoms (principal); I10 Essential (primary) hypertension; E78.2 Mixed hyperlipidemia
CPT/HCPCS: 36415; 80053; 80061; 84153; 84154; 85025

== ENCOUNTER 2023-10-17 09:58 | Outpatient (CLI) | payer BC, MEDICARE, SELFPAY ==
--- NOTE | ~2023-10-17 | CT_ITS ---
CT Scan of the Chest without Contrast: Clinical Indication: Lung cancer screening, personal history of nicotine dependence Technique: Contiguous sections were acquired throughout the chest without intravenous contrast. Dose reduction technique was used on this scan by utilizing automated exposure control and iterative recon struction technique. The dose-length product (DLP) was 134.38 mGy-cm. COMPARISON: 10/15/2022 Findings: There is no evidence of any significant mediastinal, hilar or axillary lymphadenopathy. Right-sided a ortic arch with aberrant left subclavian artery noted. There is no evidence of pleural or pericardial effusion. The lungs are clear. No pulmonary nodules or infiltrates are noted.. Stable emphysema. Images through the upper abdomen reveal no abnormalities. Impression: Lung RADS 1: Negative. 12 month follow-up screening CT advised. Reviewed, dictated and finalized at [facility]. 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 12 month follow-up screening CT advised.
== END 2023-10-17 09:59 | disposition home or self-care (01) ==
LOC: ANHIMG 10:00
PROVIDERS: PCP Family Medicine; Visit Provider Nurse Practitioner Family
DX: Z12.2 Encounter for screening for malignant neoplasm of respiratory organs (principal); Z87.891 Personal history of nicotine dependence
CPT/HCPCS: 71271

== ENCOUNTER 2023-11-15 12:12 | Observation (INO) | payer BC, MEDICARE, SELFPAY ==
[2023-11-15] VITALS (27 sets, daily range): BP systolic 109–136; BP diastolic 64–84; PULSE 63–96; RESP 11–33; TEMP 36.4–36.7; O2SAT 94–100; BMI 24.1
--- NOTE | ~2023-11-15 | XR_ITS ---
EXAMINATION: XR chest 2V DATE: 11/15/2023 12:42 INDICATION: Shortness of breath TECHNIQUE: PA and lateral views of the chest are obtained. COMPARISON: 10/31/2022 FINDINGS: The lungs are free of acute opacities. No pleural effusion or pneumothorax. The cardiomedia stinal silhouette is normal. There is mild thoracic spondylosis. There are lucencies of the upper amaury g zones, consistent with emphysema. IMPRESSION: 1. Emphysema. Reviewed, dictated and finalized at location A. IMPRESSION: 1. Emphysema.
[2023-11-15 13:10] LABS: Influenza A QL RT-PCR Negative (Negative); Influenza B QL RT-PCR Negative (Negative); RSV RNA, RT-PCR Negative (Negative); SARS-CoV-2 RNA PCR Negative (Negative)
--- NOTE | 2023-11-15 14:19 | ECG_ITS ---
Measurements Intervals [place] Rate: 62 P: 74 MT: 225 QRS: 24 QRSD: 93 T: 65 QT: 407 QTc: 415 Interpretive Statements SINUS RHYTHM WITH FIRST DEGREE AV BLOCK BORDERLINE ECG COMPARED TO ECG 10/31/2022 15:06:16 FIRST DEGREE AV BLOCK NOW PRESENT Electronically Signed On 11-15-2023 14:34:29 CDT by Juve Saldana D.O.
--- NOTE | 2023-11-15 14:28 | ED.URI ---
HPI - URI/Sore Throat General Chief Complaint: Upper Respiratory Infection <Alondra Ware PA-C - Last Filed: 11/15/23 18:44> Stated Complaint: URI <HEBER Birch Last Filed: 11/15/23 18:44> Time Seen by Provider: 11/15/23 13:05 <HEBER Birch Last Filed: 11/15/23 18:44> Source: patient <HEBER Birch Last Filed: 11/15/23 18:44> Mode of arrival: ambulatory <HEBER Birch Last Filed: 11/15/23 18:44> Limitations: no limitations <HEBER Birch Last Filed: 11/15/23 18:44> History of Present Illness HPI Narrative: This is a 73 year old male that presents to the ER for cold symptoms present over the last 4 days. Reports fever, cough, congestion, shortness of breath and wheezing. He has history of COPD. He has not used his nebulizer machine. He does use Trelegy. Denies chest pain or lower extremity edema. <HEBER Birch Last Filed: 11/15/23 18:44> Related Data Home Medications: Home Medications Medication Instructions Recorded Confirmed gabapentin 100 mg tablet 100 mg PO DAILY 11/15/23 11/15/23 <HEBER Birch Last Filed: 11/15/23 18:44> Allergies/Adverse Reactions: Allergies Allergy/AdvReac Type Severity Reaction Status Date / Time No Known Allergies Allergy Verified 11/15/23 20:35 <HEBER Birch Last Filed: 11/15/23 18:44> Review of Systems Review of Systems: CONSTITUTIONAL: Reports fever ENT: Reports congestion CARDIOVASCULAR: Denies chest pain, or edema. RESPIRATORY: Reports cough and dyspnea. <HEBER Birch Last Filed: 11/15/23 18:44> All systems reviewed & are unremarkable except as noted in HPI and below <HEBER Birch Last Filed: 11/15/23 18:44> [facility] Past Medical History Medical History: Medical History Abnormal ejaculation Abnormal skin growth Bradycardia Bronchitis Centrilobular emphysema COPD exacerbation 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 Cough Dementia Diarrhea Diarrhea in adult patient SOLIS (dyspnea on exertion) 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 Guttate psoriasis Hives Hyperlipidemia Hyperlipidemia type III Hyperlipidemia, acquired Hypoxemia Lumbar spondylosis Oropharyngeal dysphagia Palmar fibromatosis Panlobular emphysema Peripheral neuropathy Pharyngeal dysphagia Psychophysiological insomnia Regurgitation and rechewing SOB (shortness of breath) Tobacco abuse quit 2012 Weight gain <Alondra Ware PA-C - Last Filed: 11/15/23 18:44> Surgical History Surgical History: Surgical History History of bladder surgery Due to bladder lesion History of nasal septoplasty History of prostate surgery History of prostatectomy Hx laparoscopic cholecystectomy <Alondra Ware PA-C - Last Filed: 11/15/23 18:44> Family History Family History: Family History Mother Cerebrovascular accident Heart disease Breast cancer Father Liver disease Grandparent Malignant neoplasm of prostate Sibling Coronary artery disease brother Diabetes mellitus Psychiatric illness sister Lung cancer <Alondra Ware PA-C - Last Filed: 11/15/23 18:44> Social History Social History: Social History Social History: The patient is and lives with a female friend and her 2 pit bulls. He has a 52 pack per year smoking history. He started smoking between ages 9 in 10 and quit smoking in 2012. He drinks 2-6 beers a week on average. 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 day: 1 Smoking cigarettes per day: 20.0 Years smoked: 5
[2023-11-15] MEDS: IPRATROPIUM 0.5 MG/ALBUTEROL SULFATE 2.5 MG AMPUL.NEB 3 ML INHALATION ×2 (14:30→19:47)
[2023-11-15] MEDS: methylPREDNISolone SOD SUCC 125 MG VIAL IV PUSH (14:40)
[2023-11-15 14:41] LABS: Hematocrit 42.1 % (42.0-52.0); Hemoglobin 13.5 g/dL (14.0-18.0); Mean Corpuscular HGB Conc 32.1 g/dl (32-36); Mean Corpuscular Hemoglobin 28.4 pg (26-34); Mean Corpuscular Volume 88.4 fl (80-100); Mean Platelet Volume 10.1 fl (7.4-10.4); Platelet Count Result 194 k/mm3 (150-375); Red Blood Count 4.76 M/mm3 (4.6-6.20); Red Cell Distribution Width 13.1 % (11.5-14.5); White Blood Count 6.1 K/mm3 (4.5-10.0)
[2023-11-15 14:52] LABS: Anion Gap 5 mmol/L (4-12); Blood Urea Nitrogen 17 mg/dL (9-20); Carbon Dioxide 31 mmol/L (22-30); Chloride 103 mmol/L (98-107); Estimated CRCL calculation 73 ml/min; Estimated Glomerular Filt Rate > 60; Glucose 112 mg/dL (65-110); Potassium 4.1 mmol/L (3.4-5.0); Prothrombin Time 13.5 Seconds (11.1-14.7); Sodium 139 mmol/L (137-145)
[2023-11-15 14:53] LABS: Partial Thromboplastin Time 26.7 Seconds (22.3-36.8)
[2023-11-15 15:03] LABS: Atypical Lymphocytes Present; Lymphocytes Absolute Manual 2.92 K/mm3 (1.1-4.5); Monocytes Absolute Manual 0.36 K/mm3 (0.1-0.90); Monocytes Percent Manual 6 % (3-9); Neutrophils Percent Manual 46 % (46-73); Total Cells Counted 100
[2023-11-15 15:04] LABS: Platelet Estimate Adequate (Adequate); Schistocytes None Seen
[2023-11-15] MEDS: IPRATROPIUM BR 0.02% INH SOLN 0.5 MG/2.5 ML VIAL 1.5 MG INHALATION (16:32)
[2023-11-15] MEDS: ALBUTEROL SULFATE NEB 2.5 MG/3 ML INH 15 MG INHALATION (16:32)
--- NOTE | 2023-11-15 20:25 | ADMGEN ---
This patient, Stacy Peck II, was admitted to 2 Medical Room 249-01. Patient/family oriented to hospital policies and general routines including ID bracelet, bed and alarms, visiting hours, pain management, procedures, bathroom and other care routines, personal items, smoking policy, room service/diet, and visiting hours. Information on how to activate the Rapid Response Team has been discussed. Patient/Family are encouraged to report perceived risks to care and to ask questions if they do not understand what they are told or what they should do.
--- NOTE | 2023-11-15 22:09 | PM.IMHP ---
H&P: HPI History of Present Illness Date/Time: 11/15/23 22:09 Chief Complaint: Shortness of breath Narrative: 73-year-old male well-known to me from prior hospitalizations with past medical history of COPD, mild cognitive impairment, hyperlipidemia and coronary disease who presented to the ER from home due to shortness of breath. Patient reports that for 5 days ago he began having upper respiratory symptoms with rhinorrhea, sinus congestion, postnasal drip and cough productive of only tiny bits of mucous. He was taking NyQuil and Tylenol at home to help with his symptoms. He reported subjective fevers with minimal chills. He reports that his roommate was ill with similar symptoms. His roommate was tested for influenza found to be negative. The patient's respiratory viral panel in the ER was negative. The patient states that he was on Cipro at home due to an elevated PSA and the primary care's note states the patient was having urinary hesitancy and dysuria. The patient reports that he was never having dysuria. He had been referred to Urology in 05/2023 but had failed to follow-up. Several years ago he was recommended and periodically self catheterization due to urinary retention. He only rarely does this. But evidently since August he had resumed cathing himself intermittently. After starting to self cath as when he started having more dysuria. He does not properly clean himself prior to placing the catheter. He denies having any urinary symptoms at this time and actually failed to mention the self catheterization to me. On review of the records the patient's urine from the primary care provider's office was negative for growth. The patient states that he is on day 7 of 10 of Cipro. For unclear reasons the patient is not on Flomax. The patient states that he is on Aricept and Namenda for memory loss. He states that he does not take the medication as directed and only takes it every once in a while. Of note the despite the patient's history of mottled cognitive impairment and having difficulty remembering where he is driving from time to time his memory is relatively good. The patient actually recalled that I 1st took care of him in 2017 and saw him for multiple admissions. Review of Systems Review of Systems: 12 systems were reviewed with pertinent positives and negatives per HPI. Except as documented in the HPI, all other systems were reviewed and are negative. [facility] Past Medical History Medical History (Updated 11/15/23 @ 23:38 by Rina Chanel DO) BPH (benign prostatic hyperplasia) Centrilobular emphysema 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 Double aortic arch Dupuytrens contracture Emphysematous COPD First degree atrioventricular block Guttate psoriasis Hyperlipidemia Hyperlipidemia type III Low vitamin D level Lumbar spondylosis Mild cognitive impairment Oropharyngeal dysphagia Palmar fibromatosis Peripheral neuropathy Pharyngeal dysphagia Psychophysiological insomnia PVD (peripheral vascular disease) Tobacco abuse quit 2012 Surgical History Surgical History History of bladder surgery Due to bladder lesion History of nasal septoplasty History of prostate surgery History of prostatectomy Hx laparoscopic cholecystectomy Family History Family History Mother Cerebrovascular accident Heart disease Breast cancer Father Liver disease Grandparent Malignant neoplasm of prostate Sibling Coronary artery disease brother Diabetes mellitus Psychiatric illness sister Lung cancer Social History Social History (Updated 11/15/23 @ 23:44 by Rina Chanel DO) Social History: The patient is and lives with a female friend and her 2 pit bulls. He has a 52 pack per year smoking history. He started smoking between ages
[2023-11-16] VITALS (13 sets, daily range): BP systolic 129–136; BP diastolic 56–78; PULSE 72–92; RESP 16–20; TEMP 36.5–36.9; O2SAT 92–98
[2023-11-16] MEDS: IPRATROPIUM 0.5 MG/ALBUTEROL SULFATE 2.5 MG AMPUL.NEB 3 ML INHALATION ×4 (01:55→20:10)
[2023-11-16] MEDS: FLUTICASONE/UMECLIDIN/VILANTER 100-62.5-25 MCG ELLIPTA 1 PUFF INHALATION (07:41)
[2023-11-16] MEDS: predniSONE 20 MG TABLET 60 MG PO (09:48)
[2023-11-16] MEDS: ENOXAPARIN 40 MG/0.4 ML SYRINGE SUB-Q (09:54)
[2023-11-16] MEDS: TAMSULOSIN HCL 0.4 MG CAPSULE PO (09:55)
[2023-11-16] MEDS: ATORVASTATIN 20 MG TABLET PO (09:55)
[2023-11-16] MEDS: GABAPENTIN 100 MG CAPSULE PO (09:55)
--- NOTE | 2023-11-16 17:17 | PM.IMPN ---
Progress Note: A&P Assessment and Plan (1) COPD exacerbation: Code(s): J44.1 - Chronic obstructive pulmonary disease with (acute) exacerbation Status: Acute Assessment and Plan: Patient presents with SOB and wheezing. CXR showing emphysema. COVID, RSV and influenza PCR negative. Started on IV steroids and changed to oral Prednisone but still symptomatic and lung exam showing poor control Continue bronchodilators. Change back to Solu-Medrol. Add abx given the productive cough. Continue Trelegy (2) BPH with obstruction/lower urinary tract symptoms: Code(s): N40.1 - Benign prostatic hyperplasia with lower urinary tract symptoms; N13.8 - Other obstructive and reflux uropathy Status: Acute Assessment and Plan: Patient has a hx of urine retention due to BPH requiring in/out cath but he does not do this. Renal function normal. Continue to monitor for urine retnetion. Continue Flomax Straight cath as needed every 6 hours. The patient was recently placed on antibiotics but urine culture was negative so Cipro not continued (3) Mild cognitive impairment: Code(s): G31.84 - Mild cognitive impairment of uncertain or unknown etiology Status: Acute Assessment and Plan: Mood stable. Given his history of BPH, Aricept is relatively contraindicated as it can worsen urinary retention symptoms. Aricept on hold. Add namenda Plan DVT prophylaxis - Lovenox Code status - full Subjective Date/time seen: 11/16/23 17:17 Interval history: 73yo male with COPD, mild cognitive impairment and CAD here for shortness of breath. No fever or chills. Still having lung congestion. He feels raspy and wheezy. Still having a cough productive of yellow-white sputum. Exam Narrative: AF 98.4 129/56 91 18 97% ra Gen - NARD Chest - inspir/expir wheezes, nml RR CV - RRR S1/S2 Abd - Soft, NT/ND, Positive BS Ext - No pedal edema Psych - Nml mood and affect Skin - Warm and dry. dried eschar right amor Objective Data Vital Signs Vital Signs: Vital Signs - 24 hr 11/15/23 17:31 11/15/23 18:25 11/15/23 18:57 Temperature Pulse Rate 86 94 96 Respiratory Rate 20 20 16 Blood Pressure 123/64 123/64 Pulse Oximetry 94 94 Oxygen Delivery 11/15/23 19:47 11/15/23 20:00 11/15/23 18:01 Temperature Pulse Rate 90 96 93 Respiratory Rate 33 H 14 Blood Pressure 123/64 Pulse Oximetry 97 Oxygen Delivery 11/15/23 18:02 11/15/23 18:15 11/15/23 18:38 Temperature Pulse Rate 95 95 Respiratory Rate 19 19 12 Blood Pressure Pulse Oximetry 95 99 Oxygen Delivery 11/15/23 19:04 11/15/23 20:48 11/15/23 20:39 Temperature 98.1 F Pulse Rate 89 96 Respiratory Rate 17 20 Blood Pressure 109/73 Pulse Oximetry 94 Oxygen Delivery Room Air 11/16/23 01:55 11/16/23 02:04 11/16/23 03:47 Temperature 98.2 F Pulse Rate 92 92 76 Respiratory Rate 18 18 20 Blood Pressure 136/78 Pulse Oximetry 94 Oxygen Delivery 11/16/23 07:43 11/16/23 07:44 11/16/23 07:54 Temperature Pulse Rate 72 88 Respiratory Rate 18 18 Blood Pressure Pulse Oximetry 92 Oxygen Delivery Room Air 11/16/23 13:31 11/16/23 13:39 11/16/23 14:00 Temperature 98.4 F Pulse Rate 86 85 91 Respiratory Rate 18 18 18 Blood Pressure 129/56 L Pulse Oximetry 97 Oxygen Delivery 11/15/23 20:41 Temperature 98.1 F Pulse Rate Respiratory Rate 20 Blood Pressure 109/73 Pulse Oximetry Oxygen Delivery Intake/Output Intake/Output: Intake & Output 11/13/23 11/14/23 11/15/23 11/16/23 23:59 23:59 23:59 23:59 Intake Total 980 Balance 980 Meds/Results Medications: Active Medications Generic Name Dose Route Start Last Admin Trade Name Freq PRN Reason Stop Dose Admin Albuterol/Ipratropium 3 ml 11/15/23 20:00 11/16/23 13:29 Ipratropium 0.5 Mg/Albuterol Sulfate 2.5 Mg Ampul.Neb 3 Ml INHALATION 3 ml Q6HRT
[2023-11-16] MEDS: methylPREDNISolone SOD SUCC 125 MG VIAL 80 MG IV PUSH (18:00)
[2023-11-16] MEDS: CALCIUM CARBONATE (TUMS) 500 MG (200 MG ELEMENTAL) PO (21:13)
[2023-11-16] MEDS: AMOXICILLIN/CLAVULANATE K 875-125 MG TAB 1 TABLET PO (21:13)
[2023-11-17] MEDS: methylPREDNISolone SOD SUCC 125 MG VIAL 80 MG IV PUSH ×3 (00:33→12:10)
--- NOTE | 2023-11-17 04:44 | PCRCNOTE ---
RT to administer 0200 updraft treatment, patient stated he did not want it. RT told pt treatment would resume at 0800.
[2023-11-17 04:58] VITALS: BP 133/82; PULSE 100; RESP 20; TEMP 36.4; O2SAT 95
[2023-11-17 07:52] VITALS: PULSE 75; RESP 18; O2SAT 93
[2023-11-17] MEDS: IPRATROPIUM 0.5 MG/ALBUTEROL SULFATE 2.5 MG AMPUL.NEB 3 ML INHALATION (07:52)
[2023-11-17] MEDS: FLUTICASONE/UMECLIDIN/VILANTER 100-62.5-25 MCG ELLIPTA 1 PUFF INHALATION (07:58)
[2023-11-17 08:01] VITALS: PULSE 78; RESP 18
[2023-11-17] MEDS: ATORVASTATIN 20 MG TABLET PO (10:19)
[2023-11-17] MEDS: AMOXICILLIN/CLAVULANATE K 875-125 MG TAB 1 TABLET PO (10:19)
[2023-11-17] MEDS: MEMANTINE 5 MG TABLET PO (10:19)
[2023-11-17] MEDS: GABAPENTIN 100 MG CAPSULE PO (10:19)
[2023-11-17] MEDS: PANTOPRAZOLE 40 MG TABLET PO (10:19)
--- NOTE | 2023-11-17 11:31 | PM.DS ---
DS: Admitting Diagnosis Discharge Date 11/17/23 Admitting Diagnosis Shortness of breath DS: Discharge Diagnosis Discharge Diagnosis (1) COPD exacerbation: Code(s): J44.1 - Chronic obstructive pulmonary disease with (acute) exacerbation Status: Acute (2) BPH with obstruction/lower urinary tract symptoms: Code(s): N40.1 - Benign prostatic hyperplasia with lower urinary tract symptoms; N13.8 - Other obstructive and reflux uropathy Status: Acute (3) Mild cognitive impairment: Code(s): G31.84 - Mild cognitive impairment of uncertain or unknown etiology Status: Acute DS: Summary Hospital Course Reason for hospitalization: 73yo male with COPD, mild cognitive impairment and CAD here for shortness of breath. Please see H&P for detials. Hospital Course: Patient presents with SOB and wheezing. CXR showing emphysema. COVID, RSV and influenza PCR negative. he was started on IV steroids and changed to oral Prednisone but still symptomatic and lung exam showing poor control. We continued bronchodilators and resumed Solu-Medrol. Abx added given the productive cough. We continued Trelegy. Patient has a hx of urine retention due to BPH requiring in/out cath but he does not do this. Renal function normal. We continued Flomax. Straight cath as needed every 6 hours was ordered.?The patient was recently placed on antibiotics but urine culture was negative so Cipro not continued here. Patient with mild cognitive impairment. Mood stable. Given his history of BPH, Aricept is relatively contraindicated as it can worsen urinary retention symptoms.?We held Aricept and changed to namenda. His respiratory symptoms improved. He had less congestion and cough production decreased. He overall did well and was able to be discharged home on 11/17/2023 Status at Discharge Cognitive/behavioral status at discharge: Stable Time Spent with Patient Time attestation: Total time spent providing and/or coordinating discharge services: 34 minutes Time spent: Greater than 30 minutes Exam Narrative: AF 97.6 133/82 78 18 93% ra Gen - NARD Chest - scattered rhonchi, good AE, nl RR CV - RRR S1/S2 Abd - Soft, NT/ND, Positive BS, bladder does not feel distended Ext - No pedal edema Psych - Nml mood and affect Skin - Warm and dry Discharge Plan Discharge Attending physician on discharge: Solis Johnson Discharging Clinician: Solis Johnson Anticipated Discharge Date/Time: 11/17/23 11:38 Patient Disposition: Home, Self-Care Activity: as tolerated Diet: heart healthy Discharge Instructions: Please complete your antibiotic course even if you are starting to feel well. Take precautions to avoid falls. Rise slowly from a lying or sitting position. Pause before standing or walking. Contact your doctor or call 911 and come to the Emergency Room if you have fevers or other worrisome symptoms. Avoid NSAIDs (ibuprofen, naproxen, Aleve). Tylenol is safe to take. Follow-up with your primary care provider in 1-2 weeks. Please call for appointment. Thank you for using [facility] for your health care needs. Patient Instructions: Antibiotic Form Stand Alone Forms: General Discharge Information Follow-up/Referrals: Liza Anderson MD [Primary Care Provider] - Call for Appointment Discharge Medications: New (DME) Space Chamber Spacer See Rx Instructions .Route Qty: 1 0RF Rx Instructions: As directed tamsulosin 0.4 mg Capsule 0.4 mg PO QAM Qty: 30 0RF memantine [Namenda] 5 mg Tablet 5 mg PO QAM Qty: 30 0RF albuterol sulfate [ProAir HFA] 90 mcg/actuation HFA aerosol inhaler 2 puff inhalation QID PRN (Reason: shortness of breath or wheezing) Qty: 6.7 0RF prednisone 20 mg tablet 40 mg PO DAILY Qty: 10 0RF azithromycin 250 mg tablet See Rx Instructions PO .COMPLEX Qty: 6 0RF Rx Instructions: For 250 mg dose pack: maik
== END 2023-11-17 13:05 | disposition home or self-care (01) ==
LOC: ANHED 18:44 → ANH2MED 20:10
PROVIDERS: Emergency Medicine; Admitting Provider Physician Assistant; Emergency Provider Physician Assistant; PCP Family Medicine; Visit Provider Family Medicine
DX: J44.1 Chronic obstructive pulmonary disease with (acute) exacerbation (principal); J43.9 Emphysema, unspecified; N40.1 Benign prostatic hyperplasia with lower urinary tract symptoms; N13.8 Other obstructive and reflux uropathy; G31.84 Mild cognitive impairment of uncertain or unknown etiology; R06.82 Tachypnea, not elsewhere classified; I25.10 Atherosclerotic heart disease of native coronary artery without angina pectoris; I25.84 Coronary atherosclerosis due to calcified coronary lesion; I44.0 Atrioventricular block, first degree; Q25.45 Double aortic arch; E78.5 Hyperlipidemia, unspecified; Z20.822 Contact with and (suspected) exposure to COVID-19; Z87.891 Personal history of nicotine dependence; F10.90 Alcohol use, unspecified, uncomplicated; Z79.51 Long term (current) use of inhaled steroids; Z79.899 Other long term (current) drug therapy
CPT/HCPCS: 36415; 71046; 80048; 85025; 85610; 85730; 87637; 93005; 94640; 96374; 96376; 99285; A9270; G0378; J1650; J2930; J7512

== ENCOUNTER 2024-05-01 22:29 | Emergency (ER) | payer MEDICARE, SELFPAY ==
--- NOTE | ~2024-05-01 | XR_ITS ---
XR chest 1V portable Ordering provider: Melina Villafana MD History: 74 years Male with . SOB . Comparison: None. FINDINGS: MEDIASTINUM: The cardiac silhouette is not enlarged. LUNGS: No infiltrates, effusions or pneumothorax. OTHER: No free air under the diaphragm. IMPRESSION: Right-sided aortic arch. Emphysematous changes of the lungs. Prominent markings in the right lower lobe area. Overlying pneumonitis cannot be excluded. Reviewed, dictated and finalized at location A. IMPRESSION: Right-sided aortic arch. Emphysematous changes of the lungs. Prominent markings in the right lower lobe area. Overlying pneumonitis cannot b e excluded.
--- NOTE | 2024-05-01 22:30 | ECG_ITS ---
Test Date: 2024-05-01 22:47:43 Measurements Intervals [place] Rate: 75 P: 85 NH: 205 QRS: 1 QRSD: 94 T: 82 QT: 367 QTc: 412 Interpretive Statements SINUS RHYTHM BORDERLINE AV CONDUCTION DELAY BASELINE ARTIFACT- V4-V6 BORDERLINE ECG No previous ECG available for comparison Electronically Signed On 05-02-2024 07:57:42 CDT by Juve Saldana D.O.
[2024-05-01 22:32] VITALS: PULSE 86; RESP 22; TEMP 36.6; O2SAT 95
[2024-05-01] MEDS: ALBUTEROL SULFATE NEB 2.5 MG/3 ML INH 15 MG INHALATION (22:49)
[2024-05-01 23:02] LABS: Basophils Absolute Auto 0.1 K/mm3 (0.0-0.1); Basophils Percent Auto 0.6 % (0.2-1.2); Eosinophils Absolute Auto 0.1 K/mm3 (0-0.3); Eosinophils Percent Auto 1.2 % (0-4.4); Hematocrit 43.1 % (42.0-52.0); Immature Granulocyte Absolute 0.03 K/mm3 (0.00-0.031); Immature Granulocyte Percent A 0.3 % (0-0.5); Lymphocytes Absolute Auto 2.36 K/mm3 (0.9-3.2); Lymphocytes Percent Auto 23.6 % (18.3-44.2); Mean Corpuscular HGB Conc 32.5 g/dl (32-36); Mean Corpuscular Hemoglobin 28.5 pg (26-34); Mean Corpuscular Volume 87.6 fl (80-100); Mean Platelet Volume 9.8 fl (7.4-10.4); Monocytes Absolute Auto 0.5 K/mm3 (0.1-0.6); Neutrophils Absolute Auto 6.9 K/mm3 (1.3-6.7); Neutrophils Percent Auto 69.3 % (45.5-73.1); Platelet Count Result 200 k/mm3 (150-375); Red Blood Count 4.92 M/mm3 (4.6-6.20); Red Cell Distribution Width 14.1 % (11.5-14.5)
--- NOTE | 2024-05-01 23:08 | ED.ABDPAIN ---
HPI - Abdominal Pain General Chief Complaint: Shortness of Breath/Dyspnea Stated Complaint: sore throat, congestion, sob, HX copd Time Seen by Provider: 05/01/24 22:37 History of Present Illness HPI narrative: Keshia started off with a sore throat and then it became a cough and congestion today. also having shortness of breath, history of COPD and he has been using his inhalers with some improvement Related Data Home Medications Medication Instructions Recorded Confirmed gabapentin 100 mg tablet 100 mg PO DAILY 11/15/23 11/21/23 Allergies Allergy/AdvReac Type Severity Reaction Status Date / Time No Known Allergies Allergy Verified 05/01/24 22:35 Review of Systems Review of Systems: All systems reviewed & are unremarkable except as noted in HPI and below PMFSH Past Medical History Medical History BPH (benign prostatic hyperplasia) Centrilobular emphysema 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 Double aortic arch Dupuytrens contracture Emphysematous COPD First degree atrioventricular block Guttate psoriasis Hyperlipidemia Hyperlipidemia type III Low vitamin D level Lumbar spondylosis Mild cognitive impairment Oropharyngeal dysphagia Palmar fibromatosis Peripheral neuropathy Pharyngeal dysphagia Psychophysiological insomnia PVD (peripheral vascular disease) Tobacco abuse quit 2012 Surgical History Surgical History History of bladder surgery Due to bladder lesion History of nasal septoplasty History of prostate surgery History of prostatectomy Hx laparoscopic cholecystectomy Family History Family History Mother Cerebrovascular accident Heart disease Breast cancer Father Liver disease Grandparent Malignant neoplasm of prostate Sibling Coronary artery disease brother Diabetes mellitus Psychiatric illness sister Lung cancer Social History Social History (Updated 11/21/23 @ 08:24 by Renetta Jacobsen) Social History: The patient is and lives with a female friend and her 2 pit bulls. He has a 52 pack per year smoking history. He started smoking between ages 9 in 10 and quit smoking in 2012. He drinks 2-6 beers a week on average. 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 He has 3 children. Code status: Full code (patient states he would not want long-term ventilation/tracheostomy or G-tube) Surrogate decision maker: Candy Smith (daughter) 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 day: 1 Smoking cigarettes per day: 20.0 Years smoked: 50 Smoking pack-years: 50.00 Smoking status: Former smoker Tobacco type: cigarettes Second hand tobacco smoke exposure: Yes Smoking end date: 02/16/13 Alcohol intake: current Drinks per week: 2 Substance use: never Substance use type: does not use Do You Feel Safe in your Home?: Yes Lack of Transportation: No Lack of Food: Never True Current Housing: I Have Housing Concerned About Future Housing: No Difficulty Paying Gas/Electric Bills: No Difficulty Paying for Meds: No Currently Unemployed: No Education: Decline to Answer Difficulty w/ Childcare or Family Care: No Living arrangements: with family Occupation/Education: occupation 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 EYES: EOMI, conjunctiva normal ENT: Hearing grossly intact LUNGS: Nonlabored breathing. prolonged end-expiratory p
[2024-05-01] MEDS: IPRATROPIUM BR 0.02% INH SOLN 0.5 MG/2.5 ML VIAL 1 MG INHALATION (23:13)
[2024-05-01 23:14] LABS: Alanine Aminotransferase 18 U/L (6-50); Albumin Level 4.2 g/dL (3.5-5.1); Alkaline Phosphatase 82 U/L (38-126); Anion Gap 9 mmol/L (4-12); Aspartate Amino Transferase 28 U/L (17-59); Bilirubin,Total 0.7 mg/dL (0.2-1.3); Blood Urea Nitrogen 13 mg/dL (9-20); Carbon Dioxide 30 mmol/L (22-30); Chloride 104 mmol/L (98-107); Estimated CRCL calculation 65 ml/min; Estimated Glomerular Filt Rate > 60; Glucose 114 mg/dL (65-110); Potassium 3.7 mmol/L (3.4-5.0); Sodium 143 mmol/L (137-145)
[2024-05-01 23:15] VITALS: O2SAT 95
[2024-05-01 23:38] LABS: Influenza A QL RT-PCR Negative (Negative); Influenza B QL RT-PCR Negative (Negative); RSV RNA, RT-PCR Negative (Negative); SARS-CoV-2 RNA PCR Negative (Negative)
[2024-05-02 00:09] VITALS: BP 138/72; PULSE 91; RESP 18; O2SAT 100
[2024-05-02] MEDS: AZITHROMYCIN 250 MG TABLET 500 MG PO (00:23)
[2024-05-02] MEDS: ACETAMINOPHEN 500 MG TABLET 1000 MG PO (00:43)
[2024-05-02] MEDS: methylPREDNISolone SOD SUCC 40 MG VIAL IV PUSH (00:43)
[2024-05-02 01:54] VITALS: BP 136/78; PULSE 95; RESP 16; TEMP 36.6; O2SAT 94
== END 2024-05-02 01:55 | disposition home or self-care (01) ==
PROVIDERS: Emergency Provider Emergency Medicine; PCP Family Medicine
DX: J44.1 Chronic obstructive pulmonary disease with (acute) exacerbation (principal); J43.2 Centrilobular emphysema; B34.9 Viral infection, unspecified; Z20.822 Contact with and (suspected) exposure to COVID-19; I25.10 Atherosclerotic heart disease of native coronary artery without angina pectoris; I25.84 Coronary atherosclerosis due to calcified coronary lesion; I73.9 Peripheral vascular disease, unspecified; E78.2 Mixed hyperlipidemia; M72.0 Palmar fascial fibromatosis [Dupuytren]; L40.4 Guttate psoriasis; N40.0 Benign prostatic hyperplasia without lower urinary tract symptoms; G31.84 Mild cognitive impairment of uncertain or unknown etiology; G62.9 Polyneuropathy, unspecified; Q25.45 Double aortic arch; Z87.891 Personal history of nicotine dependence; Z90.49 Acquired absence of other specified parts of digestive tract; Z90.79 Acquired absence of other genital organ(s); Z79.899 Other long term (current) drug therapy; R94.31 Abnormal electrocardiogram [ECG] [EKG]
CPT/HCPCS: 36415; 71045; 80053; 85025; 87637; 93005; 96374; 99284; A9270; J2919

== ENCOUNTER 2024-05-19 08:57 | Outpatient (CLI) | payer OTHER, MEDICARE, SELFPAY ==
[2024-05-19 10:09] LABS: Alanine Aminotransferase 25 U/L (6-50); Albumin Level 3.8 g/dL (3.5-5.1); Alkaline Phosphatase 81 U/L (38-126); Anion Gap 5 mmol/L (4-12); Aspartate Amino Transferase 27 U/L (17-59); Bilirubin,Total 0.3 mg/dL (0.2-1.3); Blood Urea Nitrogen 16 mg/dL (9-20); Calcium 10.2 mg/dL (8.4-10.2); Carbon Dioxide 33 mmol/L (22-30); Chloride 101 mmol/L (98-107); Cholesterol 151 mg/dL (0-200); Estimated Glomerular Filt Rate > 60; Glucose 108 mg/dL (65-110); HDL Direct 56 mg/dL; Potassium 3.9 mmol/L (3.4-5.0); Sodium 139 mmol/L (137-145); Triglycerides 89 mg/dL (<150)
[2024-05-19 10:20] LABS: LDL Cholesterol Direct 69 mg/dL
[2024-05-19 10:47] LABS: Hemoglobin A1C 6.3 % (<5.7)
[2024-05-21 16:18] LABS: PSA, Free 1.1 ng/mL; PSA, Total 8.1 ng/mL (< OR = 4.0); Percent Free Prostate Spec Ag 14 % (calc) (>25)
== END 2024-05-19 08:58 | disposition home or self-care (01) ==
PROVIDERS: PCP Family Medicine; Visit Provider Student in an Organized Health Care Education/Training Program
DX: R73.01 Impaired fasting glucose (principal); Z12.5 Encounter for screening for malignant neoplasm of prostate; E78.5 Hyperlipidemia, unspecified; I10 Essential (primary) hypertension
CPT/HCPCS: 36415; 80053; 80061; 83036; 84153; 84154; G0103

== ENCOUNTER 2024-07-24 07:31 | Outpatient (CLI) | payer OTHER, MEDICARE, SELFPAY ==
--- NOTE | ~2024-07-24 | NM_ITS ---
EXAMINATION: NM tosha stress w perfusion DATE: 07/24/2024 11:25 INDICATION: Chest pain. TECHNIQUE: Rest images were obtained following intravenous administration of 10.9 mCi Tc99m tetrofosm in (Myoview). The patient was infused intravenously with Lexiscan (regadenoson). Then, 33.8 mCi Tc99m tetrofosmin (Myoview) was administered intravenously, and supine and prone stress images were obtain ed. Data was reconstructed into short axis and horizontal and vertical long axis SPECT images. Gated SPECT images were also obtained. COMPARISON: None. FINDINGS: There is a moderate-sized, mild, fixed perfusion defect involving apical to mid inferior wa ll and mid inferoseptal wall of left ventricle, consistent with infarct. No reversible component to s uggest ischemia. There is no segmental wall motion abnormality. Left ventricular ejection fraction measures 46%. IMPRESSION: 1. Moderate-sized area of mild infarct involving apical to mid inferior wall and mid inferoseptal wal l of left ventricle. 2. Left ventricular ejection fraction measuring 46%. Reviewed, dictated and finalized at location A. RANCE ASSOCIATE IMPRESSION: 1. Moderate-sized area of mild infarct involving apical to mid inferior wall an d mid inferoseptal wall of left ventricle. 2. Left ventricular ejection fraction measuring 46%.
--- NOTE | 2024-07-24 07:51 | EST_ITS ---
Patient Info Name: Stacy Peck Age: 74 years : 1950 Gender: Male Ht: 73 in Wt: 190 lbs BSA: 2.11 m2 Exam Date: 07/24/2024 9:44 AM Exam Location: Echo Lab Patient Status: Outpatient Admit Date: 07/24/2024 Staff Ordering Physician: Juve Saldana DO Attending Provider: Juve Saldana DO Exercise Technologist: Orin Raza RDCS Exercise Physician: Juve Saldana DO Exam Type: CA stress tosha w NM Study Info A regadenoson stress test was performed. Summary 1. 1. Negative lexiscan stress test for ischemic ST changes by ECG criteria. 2. 2. Stable hemodynamics throughout the test. 3. 3. Nuclear scan to follow and will be reported separately. Please correlate with it. 4. 4. Patient informed of the above results. Protocol: Lexiscan Stress ECG Details Stage: REST Duration (min): 0 min : 50 sec HR (bpm): 48 SBP (mmHg): 105 DBP (mmHg): 62 Stage: REST Duration (min): 4 min : 21 sec HR (bpm): 48 SBP (mmHg): 105 DBP (mmHg): 62 Stage: STAGE 1 Duration (min): 0 min : 59 sec HR (bpm): 59 SBP (mmHg): 125 DBP (mmHg): 77 Stage: RECOVERY Duration (min): 1 min : 0 sec HR (bpm): 60 SBP (mmHg): 131 DBP (mmHg): 80 Stage: RECOVERY Duration (min): 2 min : 0 sec HR (bpm): 56 SBP (mmHg): 131 DBP (mmHg): 80 Stage: RECOVERY Duration (min): 3 min : 0 sec HR (bpm): 46 SBP (mmHg): 112 DBP (mmHg): 81 Stage: RECOVERY Duration (min): 3 min : 2 sec HR (bpm): 46 SBP (mmHg): 112 DBP (mmHg): 81 Rest HR: 48 bpm Peak HR: 66 bpm Rest Sys BP: 105 mmHg Peak Sys BP: 131 mmHg Max Pred HR: 146 bpm % Max Pred HR: 45 % Target HR: 124 bpm Max RPP: 8,646 bpm*mmHg Termination Reason: Completed protocol Cardiac Symptoms: Shortness of breath Total Time: 1 min : 0 sec Rest Baeza BP: 62 mmHg Peak Baeza BP: 80 mmHg Total Dose: 0.4 mg Resting ECG Sinus bradycardia. Stress ECG No ST changes. Arrhythmias None. Report Signatures
--- NOTE | 2024-07-24 07:51 | ECHO_ITS ---
Patient Info Name: Stacy Peck Age: 74 years : 1950 Gender: Male Ht: 73 in Wt: 190 lbs BSA: 2.11 m2 HR: 50 bpm BP: 141 / 77 mmHg Technical Quality: Fair Exam Date: 07/24/2024 7:54 AM Exam Location: Echo Lab Patient Status: Outpatient Admit Date: 07/24/2024 Staff Ordering Physician: Juve Saldana DO Machinist Apprentice: Orin Raza RDCS Attending Provider: Juve Saldana DO Referring Physician: Les MITCHELL; Exam Type: CA echo doppler color flow Study Info Indications R06.09 - Other forms of dyspnea Complete two-dimensional, color flow and Doppler transthoracic echocardiogram is performed. Summary 1. Complete two-dimensional, color flow and Doppler transthoracic echocardiogram is performed. 2. Left ventricular chamber dimension is normal. 3. Left ventricular systolic function is normal, estimated at 60-65%. 4. The left ventricular diastolic function is grade I diastolic dysfunction. 5. E/e' 8 is minimally elevated. 6. There is mild aortic valve sclerosis. 7. No pulmonary hypertension, estimated pulmonary arterial systolic pressure is 16 mmHg. Left Ventricle E/e' 8 is minimally elevated. Left ventricular chamber dimension is normal. Left ventricular systolic function is normal, estimated at 60-65%. The left ventricular diastolic function is grade I diastolic dysfunction. Right Ventricle Right ventricular chamber dimension is normal. Right ventricular systolic function is normal. Left Atria Left atrial chamber dimension is normal. Right Atria Right atrial chamber dimension is normal. Aortic Valve The aortic valve is trileaflet. There is mild aortic valve sclerosis. There is no aortic valve stenosis. There is no aortic valve regurgitation. Pulmonic Valve There is no pulmonic regurgitation. Mitral Valve There is no mitral valve stenosis. There is no mitral valve regurgitation. Tricuspid Valve There is no tricuspid valve regurgitation. No pulmonary hypertension, estimated pulmonary arterial systolic pressure is 16 mmHg. Pericardium/Pleural There is no pericardial effusion. Inferior Vena Cava Normal inferior vena cava with >50% collapse upon inspiration consistent with normal right atrial pressure, 5 mmHg. Aorta The aortic root size at the sinus of Valsalva is normal. Left Ventricular Outflow Tract Name Value Normal LVOT 2D LVOT Diameter 2.0 cm LVOT Doppler LVOT Peak Gradient 3 mmHg LVOT Mean Gradient 2 mmHg LVOT VTI 22 cm LVOT VTI/AV VTI Ratio 1.0 LVOT Stroke Volume 67 ml LVOT CO 3.1 l/min LVOT CI 1.5 l/min/m2 Pulmonic Valve Name Value Normal RVOT Doppler RVOT Peak Gradient 1 mmHg PV Doppler PV Peak Gradient 2 mmHg Mitral Valve Name Value Normal MV Doppler MV Decel [place] 364 cm/s2 MV PHT 60 ms MV Area (PHT) 3.7 cm2 4.0-5.0 MV Diastolic Function MV E Peak Velocity 76 cm/s MV A Peak Velocity 51 cm/s MV E/A 1.5 MV Decel Time 208 ms Tricuspid Valve Name Value Normal TV Regurgitation Doppler TR Peak Velocity 162 cm/s TR Peak Gradient 11 mmHg Estimated PAP/RSVP RA Pressure 5 mmHg <=5 PA Systolic Pressure 16 mmHg <36 RV Systolic Pressure 16 mmHg <36 Aorta Name Value Normal Ascending Aorta Ao Root Diameter (MM) 3.2 cm Ao Root Diam Index (MM) 1.5 cm/m2 Aortic Valve Name Value Normal AV Doppler AV Peak Velocity 99 cm/s AV Peak Gradient 4 mmHg AV Mean Gradient 2 mmHg AV VTI 21 cm AV Area (Cont Eq VTI) 3.2 cm2 >=3.0 AV Area (Cont Eq Sanjay) 2.6 cm2 AV Regurgitation 2D LVOT Area 3.1 cm2 Ventricles Name Value Normal LV Dimensions 2D/MM IVS Diastolic Thickness (2D) 0.8 cm 0.6-1.0 IVS Diastole Thickness (MM) 0.7 cm 0.6-1.0 LVID Diastole (2D) 4.9 cm 4.2-5.8 LVID Diastole (MM) 5.9 cm 4.2-5.8 LVIW Diastolic Thickness (2D) 0.8 cm 0.6-1.0 LVIW Diastolic Thickness (MM) 0.9 cm 0.6-1.0 LVID Systole (2D) 2.9 cm 2.5-4.0 LVID Systole (MM) 3.8 cm 2.5-4.0 LVOT Diameter 2.0 cm LV Mass (2D Cubed) 127.38 g 88.00-224.00 LV Mass Index (2D Cubed) 60 g/m2 49-115 Relative Wall Thickness (2D) 0.32 LV Mass (MM Cubed) 184.85 g 88.00-224.00 LV Mass Index (MM Cubed) 87 g/m2 49-115 Relative Wall Thickness (MM) 0.29 LV Fractional Shortening/Ejection Fraction 2D/MM LV Fractional Shortening (2D) 42 % 25-43 LV Fractional Shortening (MM) 36 % 25-43 LV EF (MM Teicholz) 65 % 52-72 LV EF (2D Teicholz) 73 % 52-72 LV Diastolic Volume (4C MOD) 67 ml LV EF (4C MOD) 56 % LV Diastolic Volume (2C MOD) 56 ml LV EF (2C MOD) 73 % LV Diastolic Volume (BP MOD) 61 ml 62-150 LV Diastolic Volume Index (BP MOD) 29 ml/m2 34-74 LV Systolic Volume (BP MOD) 23 ml 21-61 LV Systolic Volume Index (BP MOD) 11 ml/m2 11-31 LV EF (BP MOD) 63 % 52-72 LV Diastolic Length (4C) 7.9 cm LV Systolic Length (4C) 6.3 cm LV Stroke Volume (4C MOD) 38 ml Atria Name Value Normal LA Dimensions LA Dimension (MM) 4.1 cm 3.0-4.1 LA Volume (4C A-L) 34 ml LA Volume (BP A-L) 43 ml RA Dimensions RA Area (4C) 13.1 cm2 <=18.0 Report Signatures
== END 2024-07-24 07:32 | disposition home or self-care (01) ==
LOC: ANHCARD 07:34
PROVIDERS: PCP Family Medicine; Visit Provider Internal Medicine Cardiovascular Disease
DX: I51.89 Other ill-defined heart diseases (principal); I35.8 Other nonrheumatic aortic valve disorders
CPT/HCPCS: 78452; 93017; 93306; A9502; J2785

== ENCOUNTER 2024-10-09 13:53 | Emergency (ER) | payer OTHER, MEDICARE, SELFPAY ==
[2024-10-09] VITALS (12 sets, daily range): BP systolic 109–137; BP diastolic 58–75; PULSE 87–125; RESP 18–34; TEMP 36.6–37.2; O2SAT 92–100
--- NOTE | ~2024-10-09 | XR_ITS ---
EXAMINATION: XR chest 2V 10/09/2024 14:25 INDICATION: Cough and congestion PROCEDURE: AP and lateral views of the chest COMPARISON: Comparison to multiple prior studies sequentially, with oldest reviewed study dated 06/19. FINDINGS: The lungs are clear. Right-sided aortic arch. The lungs are hyperinflated which is consiste nt with, but not diagnostic of chronic obstructive pulmonary disease. There are no pleural effusions . There is no pneumothorax suspected. IMPRESSION: 1: NO ACUTE CARDIOPULMONARY DISEASE. Reviewed, dictated and finalized at location L. UND CUSTOMER SERVICE REPRESENTATIVE
--- NOTE | ~2024-10-09 | CT_ITS ---
EXAMINATION: CTA chest PE protocol DATE: 10/09/2024 17:05 INDICATION: Difficulty breathing. TECHNIQUE: Computed tomography angiography (CTA) of the chest was performed with 100 mL Omnipaque-350 intravenous contrast timed to evaluate the pulmonary arteries. Coronal maximum intensity projection 3D-reconstructions were created by the technologist. Automated exposure control and iterative reconst ruction technique were employed. The dose-length product was 275.09 mGy-cm. COMPARISON: Chest CT 10/17/2023 FINDINGS: There is moderate emphysema. There is mild atelectasis bilaterally. No pleural effusion. 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 The heart size is normal. No p ericardial effusion. There is mild right hilar lymphadenopathy, likely reactive. There are changes of cholecystectomy. There is no pulmonary embolus. There is mild thoracic spondylosis and moderate cerv ical spondylosis. IMPRESSION: 1. No pulmonary embolus. 2. Moderate emphysema. 3. Mild right hilar lymphadenopathy, likely reactive. Reviewed, dictated and finalized at location A. LEVELER
--- NOTE | 2024-10-09 13:57 | ED_ITS ---
HPI - SOB/Dyspnea General Chief Complaint: Shortness of Breath/Dyspnea <Raine John PA-C - Last Filed: 10/09/24 14:01> Stated Complaint: shortness of breath, hypoxia, fever <Raine John PA-C - Last Filed: 10/09/24 14:01> Time Seen by Provider: 10/09/24 13:57 <HEBER Yao Last Filed: 10/09/24 14:01> Focused HPI: Patient is a 74-year-old male who presents the ED with report of shortness of breath. Patient reports he began feeling ill yesterday, but developed productive cough and increased shortness of breath today. States he feels rougher than a corn cob today. Reports subjective fever, chills, malaise, chest tightness. Hx of COPD. States his SaO2 was down to 85% at home which prompted his presentation. Denies previous oxygen requirement. GENERAL: Elderly, mildly ill well-nourished, and in no acute distress. HEAD: Normocephalic, atraumatic. CHEST: Mild tachypnea. No significant focal lung sounds. Some faint expiratory upper airway wheezing. HEART: Tachycardic with regular rhythm.? NEURO: ?Alert and oriented x3. Patient screened in triage and initial orders placed.? ?Additional care and disposition to be based upon?diagnostic testing and treatment. <Raine John PA-C - Last Filed: 10/09/24 14:01> Focused HPI: Patient is a 74-year-old male who presents the ED with report of shortness of breath. Patient reports he began feeling ill yesterday, but developed productive cough and increased shortness of breath today. States he feels rougher than a corn cob today. Reports subjective fever, chills, malaise, chest tightness. Hx of COPD. States his SaO2 was down to 85% at home which prompted his presentation. Denies previous oxygen requirement. GENERAL: Elderly, mildly ill well-nourished, and in no acute distress. HEAD: Normocephalic, atraumatic. CHEST: Mild tachypnea. Some faint expiratory upper airway wheezing. Coarse bibasilar breath sounds HEART: Tachycardic with regular rhythm.? NEURO: ?Alert and oriented x3. Patient screened in triage and initial orders placed.? ?Additional care and disposition to be based upon?diagnostic testing and treatment. <Kenneth Silver MD - Last Filed: 10/09/24 17:59> Source: patient <Raine John PA-C - Last Filed: 10/09/24 14:01> Mode of arrival: ambulatory <Raine John PA-C - Last Filed: 10/09/24 14:01> Limitations: no limitations <Raine John PA-C - Last Filed: 10/09/24 14:01> History of Present Illness HPI Narrative: Agree with the HPI as described above. <Kenneth Silver MD - Last Filed: 10/09/24 17:59> Related Data Home Medications: Home Medications ?Medication ?Instructions ?Recorded ?Confirmed ?Last Taken ?Type gabapentin 100 mg tablet 100 mg PO DAILY PRN 05/25/24 06/15/24 Unknown History memantine 5 mg tablet 5 mg PO BID PRN 05/25/24 06/15/24 Unknown History <Raine John PA-C - Last Filed: 10/09/24 14:01> Allergies/Adverse Reactions: Allergies Allergy/AdvReac Type Severity Reaction Status Date / Time No Known Allergies Allergy Verified 06/15/24 08:21 <Raine John PA-C - Last Filed: 10/09/24 14:01> Review of Systems 2 Review of Systems: As reviewed above in HPI <Kenneth Silver MD - Last Filed: 10/09/24 17:59> [facility] Past Medical History Medical History: Medical History BPH (benign prostatic hyperplasia) COPD exacerbation PVD (peripheral vascular disease) Mild cognitive impairment Subacute sinusitis COPD exacerbation Psychophysiological insomnia Pharyngeal dysphagia Oropharyngeal dysphagia Hyperlipidemia type III Guttate psoriasis 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 Centrilobular emphysema Community acquired pneumonia Otitis media Low vitamin D level Dupuytrens contracture COVID-19 Regurgitation and rechewing Diarrhea Emphysematous COPD Hyperlipidemia Double aortic arch COPD exacerbation Peripheral neuropathy Lumbar spondylosis Tobacco abuse quit 2012 Palmar fibromatosis First degree atrioventricular block <Raine John PA-C - Last Filed: 10/09/24 14:01> Surgical History Surgical History: Surgical History History of prostate surgery History of prostatectomy History of nasal septoplasty History of bladder surgery Due to bladder lesion Hx laparoscopic cholecystectomy <Raine John PA-C - Last Filed: 10/09/24 14:01> Family History Family History: Family History Mother Cerebrovascular accident Heart disease Breast cancer Father Liver disease Grandparent Malignant neoplasm of prostate Sibling Coronary artery disease brother Diabetes mellitus Psychiatric illness sister Lung cancer <Raine John PA-C - Last Filed: 10/09/24 14:01> Social History Social History: Social History Social History: The patient is and lives with a female friend and her 2 pit bulls. He has a 52 pack per year smoking history. He started smoking between ages 9 in 10 and quit smoking in 2012. He drinks 2-6 beers a week on average. 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 He has 3 children. Code status: Full code (patient states he would not want long-term ventilation/tracheostomy or G-tube) Surrogate decision maker: Candy Smith (daughter) 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 day: 1 Smoking cigarettes per day: 20.0 Years smoked: 50 Smoking pack-years: 50.00 Smoking status: Former smoker Tobacco type: cigarettes Second hand tobacco smoke exposure: Yes Smoking end date: 02/16/13 Alcohol intake: current Drinks per week: 2 Substance use: never Substance use type: does not use Do You Feel Safe in your Home?: Yes Lack of Transportation: No Lack of Food: Never True Current Housing: I Have Housing Concerned About Future Housing: No Difficulty Paying Gas/Electric Bills: No Difficulty Paying for Meds: No Currently Unemployed: No Education: Decline to Answer Difficulty w/ Childcare or Family Care: No Living arrangements: with family Occupation/Education: occupation 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 HEAD: [Normocephalic, atraumatic.] EYES: [PERRLA and EOMI.] ENT: Nares clear, no rhinorrhea or epistaxis. Mucous membranes moist. NECK: Supple. CHEST: Coarse bibasilar breath sounds with some prolonged expiratory wheezing appreciated, mild tachypnea. No significant respiratory distress. No belly breathing. HEART: Tachycardic but regular rhythm. No murmur heard. [Normal peripheral pulses.] ABDOMEN: [Soft, nondistended], [nontender], [No rigidity or guarding] EXTREMITIES: Normal range of motion. [No edema.] SKIN: Warm, dry, no rash. NEURO: [No focal deficits]. Alert and oriented [x3.] PSYCH: [Normal mood and affect.] <Kenneth Silver MD - Last Filed: 10/09/24 17:59> Course Vital Signs Vital signs: Vital Signs Temperature 36.6 C 10/09/24 13:55 Pulse Rate 125 H 10/09/24 13:55 Respiratory Rate 34 H 10/09/24 13:55 Blood Pressure 133/64 10/09/24 13:55 Pulse Oximetry 99 10/09/24 13:55 Oxygen Delivery Room Air 10/09/24 13:55 Temperature 36.6 C 10/09/24 13:55 Pulse Rate 113 H 10/09/24 17:00 Respiratory Rate 21 H 10/09/24 17:00 Blood Pressure 126/60 10/09/24 17:00 Pulse Oximetry 94 10/09/24 17:00 Oxygen Delivery Room Air 10/09/24 15:04 <Raine John PA-C - Last Filed: 10/09/24 14:01> Vital Signs Temperature 36.6 C 10/09/24 13:55 Pulse Rate 125 H 10/09/24 13:55 Respiratory Rate 34 H 10/09/24 13:55 Blood Pressure 133/64 10/09/24 13:55 Pulse Oximetry 99 10/09/24 13:55 Oxygen Delivery Room Air 10/09/24 13:55 Temperature 36.6 C 10/09/24 13:55 Pulse Rate 113 H 10/09/24 17:00 Respiratory Rate 21 H 10/09/24 17:00 Blood Pressure 126/60 10/09/24 17:00 Pulse Oximetry 94 10/09/24 17:00 Oxygen Delivery Room Air 10/09/24 15:04 <Kenneth Silver MD - Last Filed: 10/09/24 17:59> MDM - SOB/Dyspnea MDM Narrative Medical decision making narrative: MSE by NIMISHA in triage. <Raine John PA-C - Last Filed: 10/09/24 14:01> MSE by NIMISHA in triage. 74-year-old male with history of COPD presenting to the emergency room with chief complaint of difficulty in breathing, feeling sick with congestion and cough. Cough is nonproductive. He does have sick contacts at home with a sick brother. Was tachypneic and tachycardic in triage but no longer as tachycardic or tachypneic and my assessment. He has coarse bibasilar breath sounds with some prolonged expiratory wheezing concerning for a COPD exacerbation. Pneumonia or intrathoracic process such as a pneumothorax or not excluded. Low suspicion ACS given his lack of chest pain or chest pressure sensation, mild cardiac risk factors such as hyperlipidemia but no other hypertension or diabetes. No evidence of a DVT or history of blood clots. Low criteria met for [place]. Workup was ordered including two-view chest x-ray, EKG, troponin, BNP, D-dimer, CBC, CMP, COVID flu and RSV swabs. He was given treatments with albuterol and ipratropium nebulization with respiratory therapy called to bedside for assistance. He was given a dose of steroid and fluid bolus and reassess frequently. Workup shows no leukocytosis or anemia. Normal coags, D-dimer mildly elevated at 0.68, CT angiography ordered. Electrolytes within normal limits, normal renal function panel. Normal LFTs, mildly hyperglycemic 182. Negative troponin, mildly elevated BNP at 277. Influenza positive. Chest x-ray shows no acute cardiopulmonary disease. CTA shows no PE, emphysema, hilar lymphadenopathy likely reactive. EKG shows sinus tachycardia and this improved with treatments. Heart rate came down to 102 and he is resting comfortably after treatment. Went over the treatment regimen including options including Tamiflu given his duration of symptoms being 2 days. Went over the risks and benefits of starting this medication and patient would like to proceed. Patient is improved significantly with treatment here in the ED and after some shared decision-making we will send the patient home with Tamiflu as well as symptomatic control medication for his cough and continued prednisone for additional treatment of his mild COPD exacerbation. Patient felt comfortable with discharge and stable, but also given strict return precautions and close outpatient instructions. <Kenneth Silver MD - Last Filed: 10/09/24 17:59> Differential Diagnosis Differential diagnosis: Likely acute exacerbation of chronic obstructive airways disease, community acquired pneumonia, asthma with exacerbation, pulmonary embolism and other <Kenneth Silver MD - Last Filed: 10/09/24 17:59> Medical Records Attestation: I reviewed the patient's medical records. <Kenneth Silver MD - Last Filed: 10/09/24 17:59> Lab Data Attestation: I reviewed the patient's lab results. <Kenneth Silver MD - Last Filed: 10/09/24 17:59> Result diagrams: 10/09/24 14:05 10/09/24 14:05 <Raine John PA-C - Last Filed: 10/09/24 14:01> Labs: Lab Results 10/09/24 Range/Units 14:05 WBC 6.4 (4.5-10.0) K/mm3 RBC 5.18 (4.6-6.20) M/mm3 Hgb 14.7 (14.0-18.0) g/dL Hct 46.5 (42.0-52.0) % MCV 89.8 (80-100) fl MCH 28.4 (26-34) pg MCHC 31.6 L (32-36) g/dl RDW 13.4 (11.5-14.5) % Plt Count 129 L (150-375) k/mm3 MPV 9.9 (7.4-10.4) fl Immature Gran % (Auto) 0.5 (0-0.5) % Neut % (Auto) 83.4 H (45.5-73.1) % Lymph % (Auto) 8.1 L (18.3-44.2) % [place] % (Auto) 7.5 (2.6-8.5) % Eos % (Auto) 0.0 (0-4.4) % Baso % (Auto) 0.5 (0.2-1.2) % Lymph # (Auto) 0.52 L (0.9-3.2) K/mm3 [place] # (Auto) 0.5 (0.1-0.6) K/mm3 Eos # (Auto) 0.0 (0-0.3) K/mm3 Baso # (Auto) 0.0 (0.0-0.1) K/mm3 Abs Immat Gran (auto) 0.03 (0.00-0.031) K/mm3 Absolute Neuts (auto) 5.3 (1.3-6.7) K/mm3 Absolute Nucleated RBC 0.000 (0.0-0.012) K/mm3 Nucleated RBC % 0.0 (0.0-0.2) % % Immature Plt Fraction 2.5 (0.9-11.2) % PT 13.9 (11.1-14.7) Seconds INR 1.0 APTT 29.0 (22.3-36.8) Seconds D-Dimer 0.68 H (<0.48) ug/mL Sodium 138 (137-145) mmol/L Potassium 3.9 (3.4-5.0) mmol/L Chloride 102 (98-107) mmol/L Carbon Dioxide 24 (22-30) mmol/L Anion Gap 12 (4-12) mmol/L BUN 24 H (9-20) mg/dL Creatinine 1.20 (0.7-1.3) mg/dL Estim Creat Clear Calc 54 ml/min Estimated GFR 59 (59 - ) Glucose 182 H (65-110) mg/dL Calcium 8.6 (8.4-10.2) mg/dL Total Bilirubin 0.9 (0.2-1.3) mg/dL AST 60 H (17-59) U/L ALT 44 (6-50) U/L Alkaline Phosphatase 99 (38-126) U/L Troponin I < 0.012 (0.000-0.034) ng/mL NT-Pro-B Natriuret Pep 277 H (19.9-100) pg/mL Total Protein 8.0 (6.3-8.2) g/dL Albumin 4.3 (3.5-5.1) g/dL Influenza A (RT-PCR) Positive A (Negative) Influenza B (RT-PCR) Negative (Negative) RSV (RT-PCR) Negative (Negative) SARS-CoV-2 RNA (RT-PCR) Negative (Negative) <Raine John PA-C - Last Filed: 10/09/24 14:01> Lab Results 10/09/24 Range/Units 14:05 WBC 6.4 (4.5-10.0) K/mm3 RBC 5.18 (4.6-6.20) M/mm3 Hgb 14.7 (14.0-18.0) g/dL Hct 46.5 (42.0-52.0) % MCV 89.8 (80-100) fl MCH 28.4 (26-34) pg MCHC 31.6 L (32-36) g/dl RDW 13.4 (11.5-14.5) % Plt Count 129 L (150-375) k/mm3 MPV 9.9 (7.4-10.4) fl Immature Gran % (Auto) 0.5 (0-0.5) % Neut % (Auto) 83.4 H (45.5-73.1) % Lymph % (Auto) 8.1 L (18.3-44.2) % [place] % (Auto) 7.5 (2.6-8.5) % Eos % (Auto) 0.0 (0-4.4) % Baso % (Auto) 0.5 (0.2-1.2) % Lymph # (Auto) 0.52 L (0.9-3.2) K/mm3 [place] # (Auto) 0.5 (0.1-0.6) K/mm3 Eos # (Auto) 0.0 (0-0.3) K/mm3 Baso # (Auto) 0.0 (0.0-0.1) K/mm3 Abs Immat Gran (auto) 0.03 (0.00-0.031) K/mm3 Absolute Neuts (auto) 5.3 (1.3-6.7) K/mm3 Absolute Nucleated RBC 0.000 (0.0-0.012) K/mm3 Nucleated RBC % 0.0 (0.0-0.2) % % Immature Plt Fraction 2.5 (0.9-11.2) % PT 13.9 (11.1-14.7) Seconds INR 1.0 APTT 29.0 (22.3-36.8) Seconds D-Dimer 0.68 H (<0.48) ug/mL Sodium 138 (137-145) mmol/L Potassium 3.9 (3.4-5.0) mmol/L Chloride 102 (98-107) mmol/L Carbon Dioxide 24 (22-30) mmol/L Anion Gap 12 (4-12) mmol/L BUN 24 H (9-20) mg/dL Creatinine 1.20 (0.7-1.3) mg/dL Estim Creat Clear Calc 54 ml/min Estimated GFR 59 (59 - ) Glucose 182 H (65-110) mg/dL Calcium 8.6 (8.4-10.2) mg/dL Total Bilirubin 0.9 (0.2-1.3) mg/dL AST 60 H (17-59) U/L ALT 44 (6-50) U/L Alkaline Phosphatase 99 (38-126) U/L Troponin I < 0.012 (0.000-0.034) ng/mL NT-Pro-B Natriuret Pep 277 H (19.9-100) pg/mL Total Protein 8.0 (6.3-8.2) g/dL Albumin 4.3 (3.5-5.1) g/dL Influenza A (RT-PCR) Positive A (Negative) Influenza B (RT-PCR) Negative (Negative) RSV (RT-PCR) Negative (Negative) SARS-CoV-2 RNA (RT-PCR) Negative (Negative) <Kenneth Silver MD - Last Filed: 10/09/24 17:59> Imaging Data Attestation: I personally reviewed and interpreted this imaging study as follows: < Kenneth Silver MD - Last Filed: 10/09/24 17:59> My impression: Impressions Chest X-Ray 10/09/24 14:30 IMPRESSION: 1: NO ACUTE CARDIOPULMONARY DISEASE. Chest CTA 10/09/24 17:14 IMPRESSION: 1. No pulmonary embolus. 2. Moderate emphysema. 3. Mild right hilar lymphadenopathy, likely reactive. <Kenneth Silver MD - Last Filed: 10/09/24 17:59> Discharge Plan Discharge Clinical Impression: Influenza A, Acute exacerbation of chronic obstructive pulmonary disease COPD (chronic obstructive pulmonary disease) Qualifiers: COPD type: unspecified COPD Qualified Code(s): J44.9 - Chronic obstructive pulmonary disease, unspecified <Raine John PA-C - Last Filed: 10/09/24 14:01> Patient Disposition: Home, Self-Care <Raine John PA-C - Last Filed: 10/09/24 14:01> Condition: Stable <Raine John PA-C - Last Filed: 10/09/24 14:01> Instructions: Antibiotic Form, Influenza (DC), COPD (Chronic Obstructive Pulmonary Disease) (DC) <Raine John PA-C - Last Filed: 10/09/24 14:01> Additional Instructions: You tested positive for influenza A. You had a mild COPD exacerbation that got better with treatments. We will send you home with steroids, Tamiflu, benzonatate for cough. Call your regular doctor and have a close outpatient follow-up appointment. If you have any worsening shortness of breath or any new concerns you can always get repeat evaluation in the ER. <Raine John PA-C - Last Filed: 10/09/24 14:01> Patient Language: [place] <Raine John PA-C - Last Filed: 10/09/24 14:01> Prescriptions: New benzonatate 200 mg capsule 200 mg PO TID PRN (Reason: cough) Qty: 20 0RF prednisone 50 mg tablet 50 mg PO DAILY 5 Days Qty: 5 0RF ondansetron 4 mg tablet,disintegrating 4 mg PO Q8H PRN (Reason: nausea and vomiting) Qty: 10 0RF guaifenesin [Mucinex] 1,200 mg tablet extended release 12hr 1,200 mg PO Q12H Qty: 20 0RF oseltamivir [Tamiflu] 75 mg capsule 75 mg PO Q12H 5 Days Qty: 10 0RF No Action memantine 5 mg tablet 5 mg PO BID PRN budesonide 160 mcg-glycopyr 9 mcg-formot 4.8 mcg/actuation HFA inhaler 160-9-4.8 mcg/actuation HFA aerosol inhaler 0RF tadalafil 20 mg tablet See Rx Instructions .ROUTE .COMPLEX Qty: 30 1RF Dose Instruction: TAKE 1 TABLET BY MOUTH DAILY NEEDED FOR SEXUAL ACTIVITY Rx Instructions: TAKE 1 TABLET BY MOUTH DAILY NEEDED FOR SEXUAL ACTIVITY albuterol sulfate 90 mcg/actuation HFA aerosol inhaler 2 puff inhalation QID PRN (Reason: shortness of breath or wheezing) Qty: 8.5 1RF fluticasone propionate [Allergy Relief (fluticasone)] 50 mcg/actuation spray,suspension 1 spray intranasal DAILY Qty: 16 0RF Rx Instructions: administer into each nostril (DME) Space Chamber Spacer See Rx Instructions .Route Qty: 1 0RF Rx Instructions: As directed gabapentin 100 mg tablet 100 mg PO DAILY PRN Trelegy Ellipta 200-62.5-25 mcg blister with device 1 inh inhalation DAILY Qty: 28 2RF atorvastatin 20 mg tablet See Rx Instructions .ROUTE .COMPLEX Qty: 90 1RF Dose Instruction: TAKE 1 TABLET BY MOUTH DAILY Rx Instructions: TAKE 1 TABLET BY MOUTH DAILY omeprazole 40 mg capsule,delayed release(DR/EC) See Rx Instructions .ROUTE .COMPLEX Qty: 90 1RF Dose Instruction: TAKE 1 CAPSULE BY MOUTH DAILY Rx Instructions: TAKE 1 CAPSULE BY MOUTH DAILY methylprednisolone [Medrol (Heriberto)] 4 mg tablets,dose pack See Rx Instructions PO PER PKG DIR Qty: 21 0RF Rx Instructions: PO PER PKG DIR benzonatate 100 mg capsule 100 - 200 mg PO TID PRN (Reason: cough) Qty: 60 0RF Rx Instructions: Take 1 to 2 caps (100 to 200 mg) TID prn for cough. Max 600 mg/day <Raine John PA-C - Last Filed: 10/09/24 14:01> Follow-up/Referrals: Monica,Liza Grant MD [Non-Staff] - <Raine John PA-C - Last Filed: 10/09/24 14:01> Time of Disposition: 17:58 <aRine John PA-C - Last Filed: 10/09/24 14:01> 17:58 <Kenneth Silver MD - Last Filed: 10/09/24 17:59>
--- NOTE | 2024-10-09 13:57 | ECG_ITS ---
Test Date: 2024-10-09 14:02:08 Measurements Intervals [place] Rate: 121 P: 0 NV: 0 QRS: -38 QRSD: 92 T: 70 QT: 289 QTc: 410 Interpretive Statements SINUS TACHYCARDIA LEFT AXIS DEVIATION BORDERLINE AV CONDUCTION DELAY DELAYED PRECORDIAL R/S TRANSITION ABNORMAL ECG Compared to ECG 05/01/2024 22:47:43 HEART RATE HAS INCREASED Electronically Signed On 10-09-2024 14:09:46 QUANTITATIVE ASSOCIATE by Juve Saldana D.O.
--- OUTSIDE RECORDS SUMMARY | 2024-10-09 13:57 | XMS_ITS | Clinical Summary ---
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 Gender Identity Not on file Sexual Orientation Not on file Plan of Treatment Health Maintenance Due Date Last Done Comments Colorectal Cancer Screening Colonoscopy (10 Years) 1950 Hepatitis C 1968 DTaP, Tdap and Td Vaccines ( 1 - Tdap) 1969 Zoster Vaccines (1 of 2) 2000 Pneumococcal Vaccine: 65+ Ye ars (1 of 1 - PCV) 2015 COVID-19 Vaccine ( - 2023-2 5 season) 2024 Influenza Adult (#1) 2024 RSV Immunization or 60+ Years (1 - 1-dose 75+ series) 2025 Meningococcal B Vaccine Aged Out No l onger eligible based on patient's age to complete this topic Meningococcal Vaccine Aged Out No papi paz eligible based on patient's age to complete this topic RSV Immunizations Under 20 Months Aged Out No longer eligible based on patient's age to complete this topic
--- OUTSIDE RECORDS SUMMARY | 2024-10-09 13:57 | XMS_ITS | Encounter Summary ---
Author Organization [facility] Address [address] [place] [address] Care Team Providers Care Salt Plant Operator Name Role Phone Unavailable Primary Care Provider Unavailabl e Encounter Details Date Type Department Care Team (Late st Contact Info) Description 10/08/[address] 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
--- OUTSIDE RECORDS SUMMARY | 2024-10-09 13:57 | XMS_ITS | Encounter Summary ---
Author Organization [facility] Address [address] [place] [address] Care Team Providers Care In Store Banker Name Role Phone Unavailable Primary Care Provider Unavailabl e Encounter Details Date Type Department Care Team (Late st Contact Info) Description 01/24/[address] 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
--- OUTSIDE RECORDS SUMMARY | 2024-10-09 13:57 | XMS_ITS | Data Portability ---
Author Organization [facility], [facility]) Address [address] [place] [address] Care Team Providers Care Watershed Program Manager Name Role Phone JOSE C GIBSON Primary Care Provider [facility] Referring Provider [phone] Assessment Encounter Date Assessment Date Assessment LastModified by Organization Details LastModified Time 03/13/2024 03/13/2024 73 year old male with history of benign prostatic hyperplasia . His lower urinary tract symptoms include, incomplete emptying ,frequency ,intermittency ,weak stream and ,straining . He also complains of erectile dysfunction since undergoing a urological procedure (uncertain what procedure was) in [place] many years ago. His IPPS score is 21 and RIVKA is 5 He has tried oral medications which have not provided symptom relief. He does not recall what his recent PSA is; we will request the results from his prevoius providers. He is considering a prostate artery embolization to treat his bothersome symptoms. We discussed the risks and benefits of a PAE in addition to the alternatives, including but not limited to TURP, REZUM and GreenLight (he wants to pursue an alternative to these due to the risk of possible adverse effects including retrograde ejaculation, etc). I believe given his symptoms he may be a candidate for a prostate artery embolization. He may need an updated PSA after we have reviewed his records. I recommend he have further imaging with a prostate MRI performed to further evaluate the size of the prostate after we have obtained an updated PSA. He will follow up once he has completed his imaging and discuss potential procedure planning. I spent a total of 45 minutes with the patient. The time was spent reviewing the chart ,discussing with patient and/or family and forming a treatment plan. [email or web address] Not available 03/15/2024 00:39:50 Plan of Treatment Reminders Order Date Submit Date Provider Last Modified By Organization Details Last Modified Time Details Appointments None recorded. Lab PSA, serum or plasma 2023 [email or web address] Not available 15:40:17 urinalysis complete, reflex culture 2023 [email or web address] Not available 15:40:17 Referral None recorded. Procedures None recorded. Surgeries None recorded. Imaging MRI, prostate, w/wo contrast [email or web address] [facility] ([facility]), [address] [place], [address], 15:39:36 Medication Orders None recorded. Patient TargetsNo targets recorded. Patient InstructionsNo instructions recorded. Reason for Referral None Reported. Problems Name Problem SNOMED Code Status Onset Date Resolution Date Notes Provider Name and Address Organization Details Recorded Time Hyperlipidemi a 27308154 Active 2023 Rosette Hinchey null, [place] - [facility] 10:28:49 Chronic obstructive pulmonary disease 66676188 Active 2023 Rosette Hinchey null[place] [facility] 10:28:57 History of cerebrovascul ar accident without residual deficits 110573983 Active 2023 Rosette Hinc[place] null[place] [facility] 10:35:22 Pulmonary emphysema 18006354 Active 2023 Rosette Hinchey null, [place] - [facility] 10:36:10 Problem Notes None recorded. Procedures Surgical History Date Name Laterality Status Provider Name and Address Organization Details Recorded Time 2 operation on urinary bladder completed Rosette Hinchey [place] - [facility] 03/13/2024 10:35:05 Imaging Results None recorded. Procedure Notes None recorded. Medical Equipment None Reported. Medications Name Sig Start Date Stop Date Status Note LastModified by Organization Details LastModified Time atorvastatin active Not Available Not Available Not Available Vitals Date Recorded Body height Body mass index (BMI) Body weight Provider Name and Address Organization Details Last Updated DateTime 03/13/2024 185.42 cm 23.7 kg/m2 65200.63 g Rosette Garcia [facility] 03/13/2024 10:28:30 Social History Question Answer Notes LastModified by Organizat ion Details LastModified Time Tobacco Smoking Status Former Smoker Rosette Garcia null, [place] - [facility] 03/13/2024 10:34:49 What Was The Date Of Your Most Recent Tobacco Screening? 03/13/2024 [email or web address] Information not available 03/13/2024 Sex: Unknown Functional Status None recorded. Mental Status None recorded. Family History Nothing Reported. Medical History Condition Response Coronary Artery Disease N COPD Y Clotting Disorder N Pacemaker N Anemia N Genitourinary Disease N Ulcers N Gastrointestinal Disease N Deep Vein Thrombosis N Anxiety Disorder N Varicose Veins N Diabetes N Anticoagulation therapy N Bleeding Disorder N Hyperlipidemia Y Cancer N Stroke Y Asthma N Neurologic Disorder N Hepatitis N Heart Disease N Pulmonary Embolism N Hypertension N Kidney Disease N Past Encounters Encounter ID Performer Location Encounter Start Date Encounter Closed Date Diagnosis/Indication Diagnosis SNOMED-CT Code Diagnosis ICD10 Code Diagnosis Note [id number] BALBINA JUÁREZ, JULIO CESAR ROBERT [address] [address] 03/13/2024 09:41:26 03/16/2024 10:25:00 Lower urinary tract symptoms due to benign prostatic hypertrophy 6805549926 9101 N40.1 Erectile dysfunction 860 184839 F52.21 Health Concerns Section Related Observation LastModified by Organization Detai ls LastModified Time None Recorded Concern Status LastModified by Organization Details LastModified Time None Recorded Advance Directives Directive None Recorded Payers Encounter Date Sequence Insurance Name Policy Number Policy Chun Covered Member ID Chun Member ID Guarantor Name 03/13/2024 1 [facility] [id number] Lenny Peck [id number] Lenny Peck Notes Date Note Type Note Provider Name and Address Organization Details Recorded Time 03/13/2024 text/html OA prostate historyReported bypatient.Quality:symp toms worse during the day Severity:moderate Alleviating Factors:nothing gives relief Associated Symptoms:incomplete emptying of bladder;Frequency;Weak Stream;Intermittency;i mpotence;straining urinaryIPSS score 21; RIVKA score 5 genitourinary symptomsprostate enlargement ANTHONY Context:has used medication tamsulosin BALBINA DAILY, ECONOMIC DEVELOPMENT COORDINATOR [id number] [facility], [address], [address], [facility] 03/15/2024 00:40:21
--- OUTSIDE RECORDS SUMMARY | 2024-10-09 13:57 | XMS_ITS | Clinical Summary ---
Author Organization [facility] Address [address] [place] [address] Care Team Providers Care Medical Concierge Name Role Phone Liza Anderson MD Primary Care Provider Liza Anderson MD Unavailable [phone] Allergies No known active allergies Medications fluticasone/ume clidin/vilanter (TRELEGY ELLIPTA INHAL) Inhale Activ e tamsulosin (FLOMAX) 0.4 mg extended release capsule Take 0.4 mg by mouth daily Active predniSONE (DELTASONE) 10 mg tablet Take 10 mg by mouth daily Active atorvastatin (LIPITOR) 20 mg tablet Take 20 mg by mouth daily Active tiZANidine (ZANAFLEX) 2 mg tablet Take 2 mg by mouth every 6 (six) hours as needed for muscle spasms Active donepeziL (ARICEPT) 10 mg tablet Take 1 tablet (10 mg total) by mouth nightly Active gabapentin (NEURONTIN) 100 mg capsule Take 1 capsule (100 mg total) by mouth 3 (three) times a day 03/08/2020 Active tadalafiL (CIALIS) 20 mg tablet Take 1 tablet (20 mg total) by mouth daily as needed 01/19/2023 Active memantine (NAMENDA) 5 mg tabletIndicatio ns:Moderate to Severe Alzheimer's Type Dementia Take 1 tablet (5 mg total) by mouth 2 (two) times a day Active Active Problems Problem Noted Date Diagnosed Date Chest pain 02/15/2023 Abnormal stress test 06/17/2020 Overview (06/17/2020): Added automatically from request for surgery [id number] SOLIS (dyspnea on exertion) 05/16/2020 Mixed hyperlipidemia 05/16/2020 History of tobacco use 05/16/2020 Surgical History Surgery Date Site/Laterality Comments MANDIBLE FRACTURE SURGERY PROSTATE SURGERY BLADDER SURGERY CHOLECYSTECTOMY Medical History Medical History Date Comments Hyperlipidemia Gallstones Pneumonia Emphysema lung (HCC) Chronic bronchitis (HCC) Family History Medical History Relation Name Comments Diabetes type II Brother Cirrhosis Father Breast cancer Mother Heart disease Mother Hypertension Mother Lung cancer Sister 2 Relation Name Status Comments Brother Alive Father (Age 57) Mother (Age 87) Sister 1 Alive Sister 2 (Age 64) Social History Tobacco Use Types Packs/Day Years Used Date Smoking Tobacco: Former Cigarettes Q uit: 2013 Smokeless Tobacco: Never Tobacco Cessation:Counseling Given: Not Answered Alcohol Use Standard Drinks/Week Comments Yes 7 (1 standard drink = 0.6 oz pur e alcohol) Personal Safety Answer Date Recorded Getting School Help Needed Not on file 10/12 Sex and Gender Information Value Date Recorded Sex Assigned at Not on file 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 Gender Identity Not on file Sexual Orientation Not on file Obstetrics History Last Filed Vital Signs Vital Sign Reading Time Taken Comments Blood Pressure 118/70 02/15/2023 2:23 PM CDT Pulse 61 02/15/2023 2:23 PM CDT Temperature 36.8 C (98.2 F) 06/08/2020 8:19 AM CDT Respiratory Rate - - Oxygen Saturation 97% 02/15/2023 2:23 PM CDT Inhaled Oxygen Concentration - - Weight 86.6 kg (191 lb) 02/15/2023 2:23 PM CDT Height 185.4 cm (6' 1 ) 02/15/2023 2:23 PM CDT Body Mass Index 25.2 02/15/2023 2:23 PM CDT Plan of Treatment Health Maintenance Due Date Last Done Comments Colon Cancer Screening-Colonoscopy 1950 Depression Screening 1950 Fall Risk Assessment 1950 Hepatitis C Screening 1950 DTaP/Tdap/Td Vaccine (1 - Tdap) 1961 Hepatitis B Screening 1968 Pneumococcal vaccine 65+ (1 of 1 - PCV) 2000 Zoster Vaccine (1 of 2) 2000 Abdominal Aortic Aneurysm (AAA) Screen 2015 Well Visit 65+ 2015 Influenza Vaccine (#1) 2024 Insurance MEDICARE SOLUTIONS [facility] MEDICARE SOLUTIONS [facility] MEDICARE SOLUTIONS [facility] CORE [employer] PLAN Care Teams Medical Concierge Relationship Specialty Start Date End Date Liza Anderson MD [address] [facility] [address] [place] [address] PCP - General Family Medicine 05/07/20 Liza Anderson MD [address] [facility] [address] [place] [address] Family Medicine 05/07/20
--- OUTSIDE RECORDS SUMMARY | 2024-10-09 13:57 | XMS_ITS | Referral Summary ---
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
[2024-10-09 14:13] LABS: Basophils Percent Auto 0.5 % (0.2-1.2); Hematocrit 46.5 % (42.0-52.0); Hemoglobin 14.7 g/dL (14.0-18.0); Immature Granulocyte Absolute 0.03 K/mm3 (0.00-0.031); Immature Granulocyte Percent A 0.5 % (0-0.5); Immature Platelet Fraction Pct 2.5 % (0.9-11.2); Lymphocytes Absolute Auto 0.52 K/mm3 (0.9-3.2); Lymphocytes Percent Auto 8.1 % (18.3-44.2); Mean Corpuscular HGB Conc 31.6 g/dl (32-36); Mean Corpuscular Hemoglobin 28.4 pg (26-34); Mean Corpuscular Volume 89.8 fl (80-100); Mean Platelet Volume 9.9 fl (7.4-10.4); Monocytes Absolute Auto 0.5 K/mm3 (0.1-0.6); Monocytes Percent Auto 7.5 % (2.6-8.5); Neutrophils Absolute Auto 5.3 K/mm3 (1.3-6.7); Neutrophils Percent Auto 83.4 % (45.5-73.1); Platelet Count Result 129 k/mm3 (150-375); Red Blood Count 5.18 M/mm3 (4.6-6.20); Red Cell Distribution Width 13.4 % (11.5-14.5); White Blood Count 6.4 K/mm3 (4.5-10.0)
[2024-10-09 14:24] LABS: Alanine Aminotransferase 44 U/L (6-50); Albumin Level 4.3 g/dL (3.5-5.1); Alkaline Phosphatase 99 U/L (38-126); Anion Gap 12 mmol/L (4-12); Aspartate Amino Transferase 60 U/L (17-59); Bilirubin,Total 0.9 mg/dL (0.2-1.3); Blood Urea Nitrogen 24 mg/dL (9-20); Calcium 8.6 mg/dL (8.4-10.2); Carbon Dioxide 24 mmol/L (22-30); Chloride 102 mmol/L (98-107); Estimated CRCL calculation 54 ml/min; Estimated Glomerular Filt Rate 59; Glucose 182 mg/dL (65-110); Potassium 3.9 mmol/L (3.4-5.0); Sodium 138 mmol/L (137-145)
[2024-10-09 14:25] LABS: Prothrombin Time 13.9 Seconds (11.1-14.7)
[2024-10-09 14:35] LABS: NT Pro B Type Natriuretic Pept 277 pg/mL (19.9-100); Troponin I < 0.012 ng/mL (0.000-0.034)
--- OUTSIDE RECORDS SUMMARY | 2024-10-09 14:40 | XMS_ITS | Referral Summary ---
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
--- OUTSIDE RECORDS SUMMARY | 2024-10-09 14:40 | XMS_ITS | Clinical Summary ---
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 Gender Identity Not on file Sexual Orientation [...] Influenza Vaccine (#1) 2024 Insurance MEDICARE SOLUTIONS [facility] MEDICARE Address: [address] [address] [place] [address] [facility] Address: [address] [place] [address] MEDICARE SOLUTIONS [facility] MEDICARE SOLUTIONS [facility] MEDICARE Address: [address] [address] [place] [address] [facility] C[employer] PLAN [facility] HMO/PPO Address: [address] [place] [address] Care Teams Rn Research Relationship Specialty Start Date End Date Liza Anderson MD [address] [facility] [address] [place] [address] PCP - General Family Medicine 05/07/20 Liza Anderson MD [address] [facility] [address] [place] [address] Family Medicine 05/07/20
--- OUTSIDE RECORDS SUMMARY | 2024-10-09 14:41 | XMS_ITS | Clinical Summary ---
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
--- OUTSIDE RECORDS SUMMARY | 2024-10-09 14:41 | XMS_ITS | Encounter Summary ---
Author Organization [facility] Address [address] [place] [address] Care Team Providers Care Professor Of History Name Role Phone Unavailable Primary Care Provider Unavailabl e Encounter Details Date Type Department Care Team (Late st Contact Info) Description 01/24/[address] 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
--- OUTSIDE RECORDS SUMMARY | 2024-10-09 14:41 | XMS_ITS | Encounter Summary ---
Author Organization [facility] Address [address] [place] [address] Care Team Providers Care Cisco Certified Network Associate Name Role Phone Unavailable Primary Care Provider Unavailabl e Encounter Details Date Type Department Care Team (Late st Contact Info) Description 10/08/[address] 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
[2024-10-09 14:47] LABS: Influenza A QL RT-PCR Positive (Negative); Influenza B QL RT-PCR Negative (Negative); RSV RNA, RT-PCR Negative (Negative); SARS-CoV-2 RNA PCR Negative (Negative)
[2024-10-09] MEDS: ALBUTEROL SULFATE NEB 2.5 MG/3 ML INH 10 MG INHALATION (14:59)
[2024-10-09] MEDS: IPRATROPIUM BR 0.02% INH SOLN 0.5 MG/2.5 ML VIAL 1 MG INHALATION (14:59)
[2024-10-09 15:05] LABS: D Dimer 0.68 ug/mL (<0.48)
[2024-10-09] MEDS: LACTATED RINGERS 1,000 ML 999 ML IV CONT (15:10)
[2024-10-09] MEDS: methylPREDNISolone SOD SUCC 40 MG VIAL IV PUSH (15:11)
== END 2024-10-09 19:18 | disposition home or self-care (01) ==
PROVIDERS: Physician Assistant; Emergency Provider Student in an Organized Health Care Education/Training Program
DX: J10.1 Influenza due to other identified influenza virus with other respiratory manifestations (principal); J44.1 Chronic obstructive pulmonary disease with (acute) exacerbation; Z20.822 Contact with and (suspected) exposure to COVID-19; I73.9 Peripheral vascular disease, unspecified; I25.10 Atherosclerotic heart disease of native coronary artery without angina pectoris; I25.84 Coronary atherosclerosis due to calcified coronary lesion; J43.9 Emphysema, unspecified; E78.49 Other hyperlipidemia; N40.0 Benign prostatic hyperplasia without lower urinary tract symptoms; G31.84 Mild cognitive impairment of uncertain or unknown etiology; G62.9 Polyneuropathy, unspecified; L40.4 Guttate psoriasis; Z87.01 Personal history of pneumonia (recurrent); Z87.891 Personal history of nicotine dependence; Z86.16 Personal history of COVID-19; Z90.79 Acquired absence of other genital organ(s); Z90.49 Acquired absence of other specified parts of digestive tract; Z79.899 Other long term (current) drug therapy; R00.0 Tachycardia, unspecified; R94.31 Abnormal electrocardiogram [ECG] [EKG]
CPT/HCPCS: 36415; 71046; 71275; 80053; 83880; 84484; 85025; 85055; 85380; 85610; 85730; 87637; 93005; 94640; 96361; 96374; 99284; J2919; J7120; Q9967

== ENCOUNTER 2024-10-14 00:23 | Inpatient (IN) | payer OTHER, MEDICARE, SELFPAY ==
[2024-10-14] VITALS (25 sets, daily range): BP systolic 119–159; BP diastolic 66–113; PULSE 66–114; RESP 16–30; TEMP 36.2–36.8; O2SAT 94–100; BMI 25.2
--- NOTE | ~2024-10-14 | XR_ITS ---
Portable chest x-ray Comparison: 10/09/2024 Clinical History: Shortness of breath Findings: COPD pattern of the lungs present. No definite acute abnormality. Cardiomediastinal silho uette is stable. Bones and soft tissues are unremarkable. Impression: COPD. No acute abnormality. Reviewed, dictated and finalized at [facility]. [employer] Impression: COPD. No acute abnormality.
--- NOTE | 2024-10-14 00:36 | ECG_ITS ---
Test Date: 2024-10-14 02:13:51 Measurements Intervals Sanders Rate: 88 P: 88 VT: 186 QRS: 5 QRSD: 82 T: 75 QT: 337 QTc: 409 Interpretive Statements SINUS RHYTHM LOW QRS VOLTAGE IN PRECORDIAL LEADS BASELINE ARTIFACT- I, II, AVR, AVL, AVF, V4-V6 BORDERLINE ECG Compared to ECG 10/09/2024 14:02:08 HEART RATE HAS DECREASED Low QRS voltage now present Electronically Signed On 10-14-2024 10:17:50 RAILWAY SHUNTER by Juve Saldana D.O.
--- OUTSIDE RECORDS SUMMARY | 2024-10-14 00:48 | XMS_ITS | Data Portability ---
Author Organization [facility], [facility]) Address [address] [place] [address] Care Team Providers Care Cigarette Making Machine Operator Name Role Phone JOSE C GIBSON Primary Care Provider [facility] Referring Provider [phone] Assessment Encounter Date Assessment Date Assessment LastModified by Organization Details LastModified Time 03/13/2024 03/13/2024 73 year old male with history of benign prostatic hyperplasia . His lower urinary tract symptoms include, incomplete emptying ,frequency ,intermittency ,weak stream and ,straining . He also complains of erectile dysfunction since undergoing a urological procedure (uncertain what procedure was) in [place] many years ago. His IPPS score is [...] recorded. Lab PSA, serum or plasma [email or web address] Not available 15:40:17 urinalysis complete, reflex culture 2023 [email or web address] Not available 15:40:17 Referral None recorded. Procedures None recorded. Surgeries None recorded. Imaging MRI, prostate, w/wo contrast 2023 [email or web address] [facility] ([facility]), [address] [place], [address], 15:39:36 Medication Orders None recorded. Patient TargetsNo targets recorded. Patient InstructionsNo instructions recorded. Reason for Referral None Reported. Problems Name Problem SNOMED Code Status Onset Date Resolution Date Notes Provider Name and Address Organization Details Recorded Time Hyperlipidemi a 23013864 Active 2023 Rosette Hinchey null, [place] - [facility] 10:28:49 Chronic obstructive pulmonary disease 43187290 Active 2023 Rosette Hinchey null, [place] - [facility] and 10:28:57 History of cerebrovascul ar accident without residual deficits 366168149 Active 2023 Rosette Hinchey null, [place] - [facility] and 10:35:22 Pulmonary emphysema 30742191 Active 2023 Rosette Hinchey null, [place] - [...] Updated DateTime 03/13/2024 185.42 cm 23.7 kg/m2 95379.63 g Rosette Garcia [facility] - [facility] 03/13/2024 10:28:30 Social History Question Answer Notes LastModified by Organizat ion Details LastModified Time Tobacco Smoking Status Former Smoker Rosette Garcia null, [place] - [facility] 03/13/2024 10:34:49 What Was The Date Of Your Most Recent Tobacco Screening? 03/13/2024 [email or web address] Information not available 03/13/2024 Sex: Unknown Functional Status None recorded. Mental Status None recorded. Family History Nothing Reported. Medical History Condition Response Anxiety Disorder N Varicose Veins N Anticoagulation therapy N Diabetes N Coronary Artery Disease N Bleeding Disorder N Hyperlipidemia Y Cancer N Stroke Y Asthma N COPD Y Pacemaker N Clotting Disorder N Anemia N Neurologic Disorder N Hepatitis N Genitourinary Disease N Gastrointestinal Disease N Ulcers N Heart Disease N Pulmonary Embolism N Deep Vein Thrombosis N Hypertension N Kidney Disease N Past Encounters Encounter ID Performer Location Encounter Start Date Encounter Closed Date Diagnosis/Indication Diagnosis SNOMED-CT Code Diagnosis ICD10 Code Diagnosis Note [id number] BALBINA JUÁREZ, JULIO CESAR ROBERT [address] [address] 03/13/2024 09:41:26 03/16/2024 10:25:00 Lower urinary tract symptoms due to benign prostatic hypertrophy 2555075298 9101 N40.1 Erectile dysfunction 860 756303 F52.21 Health Concerns Section Related Observation LastModified by Organization Detai ls LastModified Time None Recorded Concern Status LastModified by Organization Details LastModified Time None Recorded Advance Directives Directive None Recorded Payers Encounter Date Sequence Insurance Name Policy Number Policy Chun Covered Member ID Chun Member ID Guarantor Name 03/13/2024 1 [facility] [id number] Lenny Peck [id number] Lenny Peck Notes Date Note Type Note Provider Name and Address Organization Details Recorded Time 03/13/2024 text/html OA prostate historyReported bypatient.Quality:symp toms worse during the day Severity:moderate Alleviating Factors:nothing gives relief Associated Symptoms:incomplete emptying of bladder;Frequency;Weak Stream;Intermittency;i mpotence;straining urinaryIPSS score 21; RIVKA score 5 genitourinary symptomsprostate enlargement ANTHONY Context:has used medication tamsulosin BALBINA DAILY, WAREHOUSE SUPERVISOR 3RD SHIFT [address] [facility], [address], [address], [facility] and 03/15/2024 00:40:21
--- OUTSIDE RECORDS SUMMARY | 2024-10-14 00:48 | XMS_ITS | Clinical Summary ---
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
--- OUTSIDE RECORDS SUMMARY | 2024-10-14 00:48 | XMS_ITS | Encounter Summary ---
Author Organization [facility] Address [address] [place] [address] Care Team Providers Care Inside B2B Sales Name Role Phone Unavailable Primary Care Provider Unavailabl e Encounter Details Date Type Department Care Team (Late st Contact Info) Description 10/08/[address] 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
--- OUTSIDE RECORDS SUMMARY | 2024-10-14 00:48 | XMS_ITS | Encounter Summary ---
Author Organization [facility] Address [address] [place] [address] Care Team Providers Care Drilling Rig Operator Name Role Phone Unavailable Primary Care Provider Unavailabl e Encounter Details Date Type Department Care Team (Late st Contact Info) Description 01/24/[address] 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
--- OUTSIDE RECORDS SUMMARY | 2024-10-14 00:48 | XMS_ITS | Continuity of Care Document ---
Author Organization [facility] Address [address] [place] [address] [place] [phone] Phone Care Team Providers Care Engineer Technician Name Role Phone Jason Stephenson Unavailable Unavailable Procedures Procedure Date Therapeutic Exercise Therapeutic Activities Hot or Cold Pack Manual Therapy Therapeutic Exercise Hot or Cold Pack Therapeutic Activities Manual Therapy Therapeutic Activities Progress Note Therapeutic Exercise Hot or Cold Pack Manual Therapy Therapeutic Activities Therapeutic Exercise Manual Therapy Hot or Cold Pack Neuromuscular Re-Ed Therapeutic Exercise Therapeutic Activities Hot or Cold Pack Therapeutic Exercise Manual Therapy Hot or Cold Pack Therapeutic Activities Neuromuscular Re-Ed Hot or Cold Pack Therapeutic Exercise Manual Therapy Therapeutic Exercise Hot or Cold Pack Progress Note Neuromuscular Re-Ed Manual Therapy Therapeutic Exercise Therapeutic Activities Hot or Cold Pack Manual Therapy Therapeutic Activities Therapeutic Exercise Hot or Cold Pack Therapeutic Activities Therapeutic Exercise Manual Therapy Hot or Cold Pack Digisleeves x2 Therapeutic Activities Manual Therapy Hot or Cold Pack Neuromuscular Re-Ed OT Evaluation Low Complexity Therapeutic Activities Advance Directives Directive Yes / No Effective Date File Name No Information Encounters Encounter Description Practice Location Reason(s) For Visit Diagnoses Date Provider Providers Copied on Encounter [facility] [facility] [place], [place], [id number], tel:[phone] [place] No Information 1 Falcon Jason. . [facility] [place] [address], [id number], tel:[phone] [place] No Information 1 Falcon Jason. . [facility], [place], [place], [id number], tel:[phone] [place] No Information 1 Falcon Jason. . [facility], [place], [id number], tel:[phone] [place] No Information December-0 1 Falcon Jason. . [facility], [place], [place], [id number], [place] tel:[phone] [place] No Information December-0 1 Falcon Jason. . [facility], [place], [place], [id number], tel:[phone] [place] No Information 1 Falcon Jason. . [facility] [place] [address], [id number], tel:[phone] [place] No Information 1 Falcon Jason. . [facility] [facility] [address], [place], [id number], tel:[phone] [place] No Information 1 Falcon Jason. . [facility] [address] [place] [address], [id number], tel:[phone] [place] No Information 1 Falcon Jason. . [facility] [address], [id number], tel:[phone] [place] No Information 1 Falcon Jason. . [facility], [id number], tel:[phone] [place] No Information 1 Falcon Jason. . [facility] [address], [place], [id number], tel:[phone] [place] No Information 1 Falcon Jason. . [facility] [address] [place] [address], [id number], tel:[phone] [place] No Information 1 Falcon Jasno. . [facility] [address], [place], [id number], tel:[phone] [place] No Information 1 Falcon Jason. . Family History Family Member Type Diagnosis Age At Onset No Information Payers Payer name Insurance type Covered libertarian ID Violeta barreraelle(s) [facility] [place] [id number] [facility] Medicare Complete 16 [id number] Social History Type Description Quantity Date Captured Comments Sex Male Smoking Status No Information Chief Complaint And Reason For Visit No Information Reason For Referral Reason For Referral No Information History Of Present Illness Encounter Date Complaint History Of Prese nt Illness No Information Functional Status Date Functional Assessmen t No Information Instructions Date Instruction Additional Infor mation Prescribed activity/exercise edu cation Related to Overweight Dietary needs education Related to Overweight Dietary needs education Related to Overweight Prescribed activity/exercise edu cation Related to Overweight Assessments Type Assessment Date No Information Patient Care Teams Name Effective Dates (start - stop) Status Members No Information
[2024-10-14] MEDS: ALBUTEROL SULFATE NEB 2.5 MG/3 ML INH 5 MG INHALATION ×2 (00:53→04:38)
--- NOTE | 2024-10-14 01:06 | ED_ITS ---
HPI - General Adult General Chief complaint: Shortness of Breath/Dyspnea Stated complaint: DIFFICULTY IN BREATHING, FLU + History of Present Illness HPI narrative: [age] male history of COPD and recent diagnosis influenza presented to the emergency department for evaluation for worsening shortness of breath. Patient reports he quit smoking approximately 12 years ago. Patient is not on oxygen at home. Patient was evaluated emergency department just a few days ago did have a negative CTA. Patient states since then he has had worsening shortness of breath. Upon arrival to the emergency department patient was tachycardic and tachypneic and does have an O2 requirement patient is on 3 L of oxygen by nasal cannula. Related Data Home Medications ?Medication ?Instructions ?Recorded ?Confirmed ?Last Taken ?Type gabapentin 100 mg tablet 100 mg PO DAILY PRN 05/25/24 06/15/24 Unknown History memantine 5 mg tablet 5 mg PO BID PRN 05/25/24 06/15/24 Unknown History Allergies Allergy/AdvReac Type Severity Reaction Status Date / Time No Known Allergies Allergy Verified 06/15/24 08:21 Review of Systems 2 Review of Systems: All systems reviewed & are unremarkable except as noted in HPI and below PMFSH Past Medical History Medical History BPH (benign prostatic hyperplasia) COPD exacerbation PVD (peripheral vascular disease) Mild cognitive impairment Subacute sinusitis COPD exacerbation Psychophysiological insomnia Pharyngeal dysphagia Oropharyngeal dysphagia Hyperlipidemia type III Guttate psoriasis 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 Centrilobular emphysema Community acquired pneumonia Otitis media Low vitamin D level Dupuytrens contracture COVID-19 Regurgitation and rechewing Diarrhea Emphysematous COPD Hyperlipidemia Double aortic arch COPD exacerbation Peripheral neuropathy Lumbar spondylosis Tobacco abuse quit 2012 Palmar fibromatosis First degree atrioventricular block Surgical History Surgical History History of prostate surgery History of prostatectomy History of nasal septoplasty History of bladder surgery Due to bladder lesion Hx laparoscopic cholecystectomy Family History Family History Mother Cerebrovascular accident Heart disease Breast cancer Father Liver disease Grandparent Malignant neoplasm of prostate Sibling Coronary artery disease brother Diabetes mellitus Psychiatric illness sister Lung cancer Social History Social History Social History: The patient is and lives with a female friend and her 2 pit bulls. He has a 52 pack per year smoking history. He started smoking between ages 9 in 10 and quit smoking in 2012. He drinks 2-6 beers a week on average. 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 He has 3 children. Code status: Full code (patient states he would not want long-term ventilation/tracheostomy or G-tube) Surrogate decision maker: Candy Smith (daughter) 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 day: 1 Smoking cigarettes per day: 20.0 Years smoked: 50 Smoking pack-years: 50.00 Smoking status: Former smoker Tobacco type: cigarettes Second hand tobacco smoke exposure: Yes Smoking end date: 02/16/13 Alcohol intake: current Drinks per week: 2 Substance use: never Substance use type: does not use Do You Feel Safe in your Home?: Yes Lack of Transportation: No Lack of Food: Never True Current Housing: I Have Housing Concerned About Future Housing: No Difficulty Paying Gas/Electric Bills: No Difficulty Paying for Meds: No Currently Unemployed: No Education: Decline to Answer Difficulty w/ Childcare or Family Care: No Living arrangements: with family Occupation/Education: occupation 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 EYES: PERRLA/EOMI, conjunctivae clear. NOSE: Normal no drainage EARS:TMS clear with good light reflex. THROAT: Pharynx clear, no exudate. NECK: Supple. No adenopathy, no masses. RESPIRATORY: Wheeze in all lung curran CARDIOVASCULAR: Regular rate and rhythm without murmurs rubs or gallops. ABDOMINAL: Soft, nontender, nondistended, normal bowel sounds MUSCULOSKELETAL: Moves all extremities. Strength/ROM intact, No edema, No calf tenderness. NEURO: Alert. Cranial nerves II through XII intact. Grossly intact SKIN: Warm, dry. Normal Color Course Vital Signs Vital signs: Vital Signs Respiratory Rate 30 H 10/14/24 00:33 Blood Pressure 159/113 H 10/14/24 00:33 Pulse Oximetry 94 10/14/24 00:33 Oxygen Delivery Nasal Cannula 10/14/24 00:33 Oxygen Flow Rate 3 10/14/24 00:33 Pulse Rate 75 10/14/24 04:40 Respiratory Rate 20 10/14/24 04:40 Blood Pressure 135/87 10/14/24 03:24 Pulse Oximetry 97 10/14/24 03:24 Oxygen Delivery Nasal Cannula 10/14/24 00:33 Oxygen Flow Rate 3 10/14/24 00:33 Medical Decision Making MDM Narrative Medical decision making narrative: 74-year-old male present to the emergency department for evaluation for worsening shortness of breath. Patient had extensive wheeze on arrival and was tachypneic with a respiratory rate into the 30s and does have an O2 requirement. Patient was treated with 5 mg of nebulized albuterol and did feel improved but patient states he took off his oxygen and had worsening shortness of breath when he was ambulating to the bathroom. Patient was just evaluated on 10/09 and did have a CTA of the chest showing no pulmonary embolism. Chest x-ray does not show a significant pneumonia but Patient does have history of COPD. Patient does have an elevated white blood count of 10.9 and hemoglobin of 13.1. INR of 0.9. BNP was 1280. Patient was negative for influenza RSV and for COVID. Patient was started on Solu-Medrol and antibiotics due to his COPD, emphysema, wheezing, and leukocytosis. Differential Diagnosis Differential Diagnosis: COVID, RSV, influenza a, COPD, Vital Signs Vital Signs: Vital Signs Respiratory Rate 30 H 10/14/24 00:33 Blood Pressure 159/113 H 10/14/24 00:33 Pulse Oximetry 94 10/14/24 00:33 Oxygen Delivery Nasal Cannula 10/14/24 00:33 Oxygen Flow Rate 3 10/14/24 00:33 Pulse Rate 75 10/14/24 04:40 Respiratory Rate 20 10/14/24 04:40 Blood Pressure 135/87 10/14/24 03:24 Pulse Oximetry 97 10/14/24 03:24 Oxygen Delivery Nasal Cannula 10/14/24 00:33 Oxygen Flow Rate 3 10/14/24 00:33 Lab Data Lab results reviewed: Yes I reviewed the patient's lab results. 10/14/24 01:59 10/14/24 03:06 Labs: Lab Results 10/14/24 10/14/24 10/14/24 Range/Units 00:40 01:59 03:06 WBC 10.9 H (4.5-10.0) K/mm3 RBC 4.54 L (4.6-6.20) M/mm3 Hgb 13.1 L (14.0-18.0) g/dL Hct 39.4 L (42.0-52.0) % MCV 86.8 (80-100) fl MCH 28.9 (26-34) pg MCHC 33.2 (32-36) g/dl RDW 13.4 (11.5-14.5) % Plt Count 190 (150-375) k/mm3 MPV 11.9 H (7.4-10.4) fl Immature Gran % (Auto) 0.4 (0-0.5) % Neut % (Auto) 79.9 H (45.5-73.1) % Lymph % (Auto) 12.7 L (18.3-44.2) % [place] % (Auto) 6.6 (2.6-8.5) % Eos % (Auto) 0.2 (0-4.4) % Baso % (Auto) 0.2 (0.2-1.2) % Lymph # (Auto) 1.38 (0.9-3.2) K/mm3 [place] # (Auto) 0.7 H (0.1-0.6) K/mm3 Eos # (Auto) 0.0 (0-0.3) K/mm3 Baso # (Auto) 0.0 (0.0-0.1) K/mm3 Abs Immat Gran (auto) 0.04 H (0.00-0.031) K/mm3 Absolute Neuts (auto) 8.7 H (1.3-6.7) K/mm3 Absolute Nucleated RBC 0.000 (0.0-0.012) K/mm3 Nucleated RBC % 0.0 (0.0-0.2) % PT (11.1-14.7) Seconds INR APTT (22.3-36.8) Seconds Sodium 141 (137-145) mmol/L Potassium 3.9 (3.4-5.0) mmol/L Chloride 105 (98-107) mmol/L Carbon Dioxide 28 (22-30) mmol/L Anion Gap 8 (4-12) mmol/L BUN 19 (9-20) mg/dL Creatinine 0.80 (0.7-1.3) mg/dL Estim Creat Clear Calc Not Reportable Estimated GFR > 60 (59 - ) Glucose 195 H (65-110) mg/dL Calcium 8.4 (8.4-10.2) mg/dL Magnesium Pending Total Bilirubin 0.6 (0.2-1.3) mg/dL AST 23 (17-59) U/L ALT 31 (6-50) U/L Alkaline Phosphatase 88 (38-126) U/L NT-Pro-B Natriuret Pep 1280 H (19.9-100) pg/mL Total Protein 6.0 L (6.3-8.2) g/dL Albumin 3.3 L (3.5-5.1) g/dL Urine Color (Yellow) Urine Appearance (Clear) Urine pH (5.0-9.0) Ur Specific [place] (1.001-1.035) Urine Protein (Negative) mg/dL Urine Glucose (UA) (Negative) mg/dL Urine Ketones (Negative) mg/dL Ur Blood (Man) (Negative) Urine Nitrate (Negative) Urine Bilirubin (Negative) Urine Urobilinogen (<2.0) mg/dL Leukocyte Esterase Rfl (Negative) CATRACHO/UL Influenza A (RT-PCR) Negative (Negative) Influenza B (RT-PCR) Negative (Negative) RSV (RT-PCR) Negative (Negative) SARS-CoV-2 RNA (RT-PCR) Negative (Negative) 10/14/24 10/14/24 10/14/24 Range/Units 03:07 03:07 04:18 WBC (4.5-10.0) K/mm3 RBC (4.6-6.20) M/mm3 Hgb (14.0-18.0) g/dL Hct (42.0-52.0) % MCV (80-100) fl MCH (26-34) pg MCHC (32-36) g/dl RDW (11.5-14.5) % Plt Count (150-375) k/mm3 MPV (7.4-10.4) fl Immature Gran % (Auto) (0-0.5) % Neut % (Auto) (45.5-73.1) % Lymph % (Auto) (18.3-44.2) % [place] % (Auto) (2.6-8.5) % Eos % (Auto) (0-4.4) % Baso % (Auto) (0.2-1.2) % Lymph # (Auto) (0.9-3.2) K/mm3 [place] # (Auto) (0.1-0.6) K/mm3 Eos # (Auto) (0-0.3) K/mm3 Baso # (Auto) (0.0-0.1) K/mm3 Abs Immat Gran (auto) (0.00-0.031) K/mm3 Absolute Neuts (auto) (1.3-6.7) K/mm3 Absolute Nucleated RBC (0.0-0.012) K/mm3 Nucleated RBC % (0.0-0.2) % PT 13.1 (11.1-14.7) Seconds INR 0.9 APTT 26.1 Cancelled (22.3-36.8) Seconds Sodium (137-145) mmol/L Potassium (3.4-5.0) mmol/L Chloride (98-107) mmol/L Carbon Dioxide (22-30) mmol/L Anion Gap (4-12) mmol/L BUN (9-20) mg/dL Creatinine (0.7-1.3) mg/dL Estim Creat Clear Calc Estimated GFR (59 - ) Glucose (65-110) mg/dL Calcium (8.4-10.2) mg/dL Magnesium Total Bilirubin (0.2-1.3) mg/dL AST (17-59) U/L ALT (6-50) U/L Alkaline Phosphatase (38-126) U/L NT-Pro-B Natriuret Pep (19.9-100) pg/mL Total Protein (6.3-8.2) g/dL Albumin (3.5-5.1) g/dL Urine Color Yellow (Yellow) Urine Appearance Clear (Clear) Urine pH 6.0 (5.0-9.0) Ur Specific [place] 1.023 (1.001-1.035) Urine Protein Trace (Negative) mg/dL Urine Glucose (UA) 2+ H (Negative) mg/dL Urine Ketones Negative (Negative) mg/dL Ur Blood (Man) Negative (Negative) Urine Nitrate Negative (Negative) Urine Bilirubin Negative (Negative) Urine Urobilinogen 0.2 (<2.0) mg/dL Leukocyte Esterase Rfl Negative (Negative) CATRACHO/UL Influenza A (RT-PCR) (Negative) Influenza B (RT-PCR) (Negative) RSV (RT-PCR) (Negative) SARS-CoV-2 RNA (RT-PCR) (Negative) Discharge Plan Discharge Clinical Impression: COPD exacerbation, Hypoxia, Pneumonia Patient Disposition: Still a Patient Condition: Serious
[2024-10-14 01:22] LABS: Influenza A QL RT-PCR Negative (Negative); Influenza B QL RT-PCR Negative (Negative); RSV RNA, RT-PCR Negative (Negative); SARS-CoV-2 RNA PCR Negative (Negative)
[2024-10-14 02:22] LABS: Basophils Percent Auto 0.2 % (0.2-1.2); Eosinophils Percent Auto 0.2 % (0-4.4); Hematocrit 39.4 % (42.0-52.0); Hemoglobin 13.1 g/dL (14.0-18.0); Immature Granulocyte Absolute 0.04 K/mm3 (0.00-0.031); Immature Granulocyte Percent A 0.4 % (0-0.5); Lymphocytes Absolute Auto 1.38 K/mm3 (0.9-3.2); Lymphocytes Percent Auto 12.7 % (18.3-44.2); Mean Corpuscular HGB Conc 33.2 g/dl (32-36); Mean Corpuscular Hemoglobin 28.9 pg (26-34); Mean Corpuscular Volume 86.8 fl (80-100); Mean Platelet Volume 11.9 fl (7.4-10.4); Monocytes Absolute Auto 0.7 K/mm3 (0.1-0.6); Monocytes Percent Auto 6.6 % (2.6-8.5); Neutrophils Absolute Auto 8.7 K/mm3 (1.3-6.7); Neutrophils Percent Auto 79.9 % (45.5-73.1); Platelet Count Result 190 k/mm3 (150-375); Red Blood Count 4.54 M/mm3 (4.6-6.20); Red Cell Distribution Width 13.4 % (11.5-14.5); White Blood Count 10.9 K/mm3 (4.5-10.0)
[2024-10-14 03:28] LABS: INR 0.9; Partial Thromboplastin Time 26.1 Seconds (22.3-36.8); Prothrombin Time 13.1 Seconds (11.1-14.7)
[2024-10-14 03:30] LABS: Alanine Aminotransferase 31 U/L (6-50); Albumin Level 3.3 g/dL (3.5-5.1); Alkaline Phosphatase 88 U/L (38-126); Anion Gap 8 mmol/L (4-12); Aspartate Amino Transferase 23 U/L (17-59); Bilirubin,Total 0.6 mg/dL (0.2-1.3); Blood Urea Nitrogen 19 mg/dL (9-20); Calcium 8.4 mg/dL (8.4-10.2); Carbon Dioxide 28 mmol/L (22-30); Chloride 105 mmol/L (98-107); Estimated Glomerular Filt Rate > 60; Glucose 195 mg/dL (65-110); Potassium 3.9 mmol/L (3.4-5.0); Sodium 141 mmol/L (137-145)
[2024-10-14 03:39] LABS: NT Pro B Type Natriuretic Pept 1280 pg/mL (19.9-100)
[2024-10-14] MEDS: methylPREDNISolone SOD SUCC 125 MG VIAL IV PUSH (04:40)
[2024-10-14] MEDS: AZITHROMYCIN 500 MG/NS 250 ML 500 MG/250 ML BAG 250 MG IVPB (04:41)
[2024-10-14 04:56] LABS: Add Urine Microscopic? YES; Appearance Urine Clear (Clear); Bilirubin Urine Negative (Negative); Blood Urine Negative (Negative); Color Urine Yellow (Yellow); Glucose Urine UA 2+ mg/dL (Negative); Ketones Urine Negative (Negative); Leukocyte Esterase Ur Negative LEU/UL (Negative); Nitrate Urine Negative (Negative); Protein Urine Trace mg/dL (Negative); Specific Grav Ur 1.023 (1.001-1.035); Urobilinogen Urine 0.2 mg/dL (<2.0)
[2024-10-14] MEDS: ALBUTEROL SULFATE NEB 2.5 MG/3 ML INH INHALATION ×3 (07:20→20:05)
[2024-10-14 07:46] LABS: Magnesium 1.6 mg/dL (1.6-2.3)
--- NOTE | 2024-10-14 10:09 | P.HP_ITS ---
H&P: HPI History of Present Illness Date/Time: 10/14/24 10:09 Chief Complaint: Shortness of breath Narrative: Patient is a 74 year old male that came to the ER with worsening shortness of breath. Patient reports that breathing has improved since he arrived at hospital. Patient is not on any home oxygen. Diagnosed 10/09/24 with influenza and started on Tamiflu. Quit smoking 12 years ago, 52 pack history. Reports numbness in feet that is chronic, denies diabetes. Patient denies shortness of breath at rest, chest pain, palpitations, headache, dizziness, nausea, or vomiting. Patient coughing up light green drainage for the past week. Respiratory panel today negative. WBC 10.9. H&H 13.1/39.4. BNP 1280. EKG: SR 88 with QTc 409. Chest X-ray: Findings: COPD pattern of the lungs present. No definite acute abnormality. Cardiomediastinal silhouette is stable. Bones and soft tissues are unremarkable. Impression: COPD. No acute abnormality. Review of Systems Review of Systems: All systems reviewed & are unremarkable except as noted in HPI and below PMFSH Past Medical History Medical History BPH (benign prostatic hyperplasia) COPD exacerbation PVD (peripheral vascular disease) Mild cognitive impairment Subacute sinusitis COPD exacerbation Psychophysiological insomnia Pharyngeal dysphagia Oropharyngeal dysphagia Hyperlipidemia type III Guttate psoriasis 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 Centrilobular emphysema Community acquired pneumonia Otitis media Low vitamin D level Dupuytrens contracture COVID-19 Regurgitation and rechewing Diarrhea Emphysematous COPD Hyperlipidemia Double aortic arch COPD exacerbation Peripheral neuropathy Lumbar spondylosis Tobacco abuse quit 2012 Palmar fibromatosis First degree atrioventricular block Surgical History Surgical History History of prostate surgery History of prostatectomy History of nasal septoplasty History of bladder surgery Due to bladder lesion Hx laparoscopic cholecystectomy Family History Family History Mother Cerebrovascular accident Heart disease Breast cancer Father Liver disease Grandparent Malignant neoplasm of prostate Sibling Coronary artery disease brother Diabetes mellitus Psychiatric illness sister Lung cancer Social History Social History Social History: The patient is and lives with a female friend and her 2 pit bulls. He has a 52 pack per year smoking history. He started smoking between ages 9 in 10 and quit smoking in 2012. He drinks 2-6 beers a week on average. 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 He has 3 children. Code status: Full code (patient states he would not want long-term ventilation/tracheostomy or G-tube) Surrogate decision maker: Candy Smith (daughter) 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 day: 1 Smoking cigarettes per day: 20.0 Years smoked: 50 Smoking pack-years: 50.00 Smoking status: Former smoker Second hand tobacco smoke exposure: Yes Alcohol intake: current Drinks per week: 6 Substance use: former Substance use type: marijuana Last use: 2yrs Do You Feel Safe in your Home?: Yes Lack of Transportation: No Lack of Food: Often True Current Housing: I Have Housing Concerned About Future Housing: No Difficulty Paying Gas/Electric Bills: No Difficulty Paying for Meds: No Currently Unemployed: No Education: Associate Degree Difficulty w/ Childcare or Family Care: No Living arrangements: with family Occupation/Education: occupation 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 200 mcg-umeclid 1 inh inhalation DAILY #28 ea 12/24/23 10/14/24 Rx 62.5 mcg-vilant 25 mcg inhalat.powder (Trelegy Ellipta) atorvastatin 20 mg tablet See Rx Instructions .Route 04/14/24 10/14/24 Rx .COMPLEX #90 tabs fluticasone propionate 50 1 spray intranasal DAILY #16 grams 05/02/24 10/14/24 Rx mcg/actuation nasal spray,suspension (Allergy Relief (fluticasone)) albuterol sulfate 90 mcg/actuation 2 puff inhalation QID PRN 05/05/24 10/14/24 Rx aerosol inhaler shortness of breath or wheezing #8.5 grams gabapentin 100 mg tablet 100 mg PO DAILY PRN pain 05/25/24 10/14/24 History memantine 5 mg tablet 5 mg PO DAILY 05/25/24 10/14/24 History omeprazole 40 mg capsule,delayed See Rx Instructions .Route 08/13/24 10/14/24 Rx release .COMPLEX #90 caps benzonatate 100 mg capsule 100 - 200 mg (1 - 2 x 100 mg) PO 10/09/24 10/14/24 Rx TID PRN cough #60 caps benzonatate 200 mg capsule 200 mg PO TID PRN cough #20 caps 10/09/24 10/14/24 Rx guaifenesin 1,200 mg tablet, 1,200 mg PO Q12H #20 tabs 10/09/24 10/14/24 Rx extended release 12 hr (Mucinex) methylprednisolone 4 mg tablets in See Rx Instructions PO PER PKG DIR 10/09/24 10/14/24 Rx a dose pack (Medrol (Hreiberto)) #21 ea ondansetron 4 mg disintegrating 4 mg PO Q8H PRN nausea and 10/09/24 10/14/24 Rx tablet vomiting #10 tabs oseltamivir 75 mg capsule (Tamiflu) 75 mg PO Q12H 5 days #10 caps 10/09/24 10/14/24 Rx prednisone 50 mg tablet 50 mg PO DAILY 5 days #5 tabs 10/09/24 10/14/24 Rx tamsulosin 0.4 mg capsule (Flomax) 0.4 mg PO HS 10/14/24 10/14/24 History Allergies Allergy/AdvReac Type Severity Reaction Status Date / Time No Known Allergies Allergy Verified 10/14/24 12:58 Vital Signs Vital Signs - 24 hr 10/14/24 00:33 10/14/24 00:56 10/14/24 01:14 Pulse Rate 108 H 111 H Respiratory Rate 30 H 24 H 24 H Blood Pressure 159/113 H Pulse Oximetry 94 Oxygen Delivery Nasal Cannula Oxygen Flow Rate 3 10/14/24 02:14 10/14/24 03:24 10/14/24 04:40 Pulse Rate 95 81 75 Respiratory Rate 22 H 20 20 Blood Pressure 133/66 135/87 Pulse Oximetry 97 97 Oxygen Delivery Oxygen Flow Rate 10/14/24 07:00 10/14/24 07:20 10/14/24 07:20 Pulse Rate 84 73 73 Respiratory Rate 24 H 18 18 Blood Pressure 128/72 Pulse Oximetry 98 98 Oxygen Delivery Nasal Cannula Oxygen Flow Rate 3 10/14/24 07:30 10/14/24 08:00 10/14/24 09:00 Pulse Rate 74 112 H 114 H Respiratory Rate 18 24 H 24 H Blood Pressure 142/76 H 119/78 Pulse Oximetry 98 100 Oxygen Delivery Oxygen Flow Rate Exam Const: General: comfortable and no acute distress Eyes: Sclera: sclerae normal Pupils: Equal, round and reactive pupils present Neck: Neck: supple Resp: Effort & Inspection: normal respiratory effort Auscultation: wheezes expiratory wheezes and diminished lung sounds Cardio: Rate: regular rate Rhythm: regular rhythm Other: Telemetry- SR 60 GI: GI Palp: Yes Soft to palpation Auscultation: normal bowel sounds Skin: General skin exam: no rashes or lesions noted Neuro: Speech: normal speech Extrem: General: no pedal edema Psych: Mental Status: mental status grossly normal Affect: normal affect H&P: Results Labs Labs: Short CBC 10/14/24 Range/Units 01:59 WBC 10.9 H (4.5-10.0) K/mm3 Hgb 13.1 L (14.0-18.0) g/dL Hct 39.4 L (42.0-52.0) % Plt Count 190 (150-375) k/mm3 BMP 10/14/24 03:06 Sodium 141 Potassium 3.9 Chloride 105 Carbon Dioxide 28 BUN 19 Creatinine 0.80 Glucose 195 H Calcium 8.4 Liver Function 10/14/24 Range/Units 03:06 Total Bilirubin 0.6 (0.2-1.3) mg/dL AST 23 (17-59) U/L ALT 31 (6-50) U/L Alkaline Phosphatase 88 (38-126) U/L Albumin 3.3 L (3.5-5.1) g/dL Urine 10/14/24 Range/Units 04:18 Urine Color Yellow (Yellow) Urine Appearance Clear (Clear) Urine pH 6.0 (5.0-9.0) Ur Specific [place] 1.023 (1.001-1.035) Urine Protein Trace (Negative) mg/dL Urine Glucose (UA) 2+ H (Negative) mg/dL Assessment and Plan Assessment and plan (1) COPD exacerbation: Code(s): J44.1 - Chronic obstructive pulmonary disease with (acute) exacerbation Status: Acute Assessment and Plan: * Respiratory panel negative. * Chest X-ray: Findings: COPD pattern of the lungs present. No definite acute abnormality. Cardiomediastinal silhouette is stable. Bones and soft tissues are unremarkable. Impression: COPD. No acute abnormality. * WBC elevated 10.9. Azithromycin 500 mg IVPB daily and Ceftriaxone 1 gram IVPB daily. * Guaifenesin 1,200 mg PO q 12. * Methylprednisone decreased to 60 mg IVP BID. * Albuterol neb q6. * 02@2LIL with Sa02 98%. * Monitor labs. (2) Former smoker: Code(s): Z87.891 - Personal history of nicotine dependence Status: Acute Assessment and Plan: * continue to refrain from smoking. Quality VTE Prophylaxis VTE prophylaxis: mechanical ordered and pharmacologic ordered Hospitalist [facility] Advance Care Plan I have confirmed that the patient's Advanced Care Plan is present, code status is documented, or surrogate decision maker is listed in patient medical record.: Yes Medication Reconciliation I have utilized all available resources to obtain, update and review the patients current medications (includes all prescriptions, OTC, herbals, cannabis, and nutritional supplements).: Yes
[2024-10-14] MEDS: methylPREDNISolone SOD SUCC 125 MG VIAL 60 MG IV PUSH ×3 (12:20→20:46)
--- NOTE | 2024-10-14 14:30 | ADMGEN ---
This patient, Stacy Peck II, was admitted to [facility] Surg Room 317-01. Patient/family oriented to hospital policies and general routines including ID bracelet, bed and alarms, visiting hours, pain management, procedures, bathroom and other care routines, personal items, smoking policy, room service/diet, and visiting hours. Information on how to activate the Rapid Response Team has been discussed. Patient/Family are encouraged to report perceived risks to care and to ask questions if they do not understand what they are told or what they should do.
[2024-10-14] MEDS: guaiFENesin 12 HR 600 MG TABCR 1200 MG PO (15:56)
[2024-10-14 17:18] LABS: Glucose Point of Care 273 mg/dl (65-105)
[2024-10-14] MEDS: OSELTAMIVIR PHOSPHATE 75 MG CAPSULE PO (18:24)
[2024-10-14] MEDS: PANTOPRAZOLE 40 MG TABLET PO (20:45)
[2024-10-14] MEDS: TAMSULOSIN HCL 0.4 MG CAPSULE PO (20:46)
[2024-10-14] MEDS: ATORVASTATIN 20 MG TABLET PO (20:46)
[2024-10-14 21:40] LABS: Glucose Point of Care 310 mg/dl (65-105)
[2024-10-15] VITALS (15 sets, daily range): BP systolic 117–129; BP diastolic 62–66; PULSE 42–85; RESP 16–20; TEMP 36.2–37.6; O2SAT 93–95
[2024-10-15] MEDS: guaiFENesin 12 HR 600 MG TABCR 1200 MG PO ×2 (01:55→14:42)
[2024-10-15] MEDS: AZITHROMYCIN 500 MG/NS 250 ML 500 MG/250 ML BAG 250 MG IVPB (04:16)
[2024-10-15] MEDS: OSELTAMIVIR PHOSPHATE 75 MG CAPSULE PO (06:10)
--- NOTE | 2024-10-15 06:15 | PCRCNOTE ---
Patient did not want to be woken for 0200 breathing treatment, if he was sleeping. RT arrived to patient room and patient was asleep. Nurse aware. Patient will receive next breathing tx at 0800.
[2024-10-15 06:47] LABS: Basophils Percent Auto 0.3 % (0.2-1.2); Immature Granulocyte Absolute 0.27 K/mm3 (0.00-0.031); Immature Granulocyte Percent A 2.3 % (0-0.5); Lymphocytes Absolute Auto 2.24 K/mm3 (0.9-3.2); Lymphocytes Percent Auto 19.2 % (18.3-44.2); Mean Corpuscular HGB Conc 32.4 g/dl (32-36); Mean Corpuscular Hemoglobin 28.1 pg (26-34); Mean Corpuscular Volume 86.7 fl (80-100); Mean Platelet Volume 10.5 fl (7.4-10.4); Monocytes Absolute Auto 0.4 K/mm3 (0.1-0.6); Monocytes Percent Auto 3.4 % (2.6-8.5); Neutrophils Absolute Auto 8.7 K/mm3 (1.3-6.7); Neutrophils Percent Auto 74.8 % (45.5-73.1); Platelet Count Result 161 k/mm3 (150-375); Red Blood Count 4.27 M/mm3 (4.6-6.20); White Blood Count 11.6 K/mm3 (4.5-10.0)
[2024-10-15 07:03] LABS: Potassium 4.2 mmol/L (3.4-5.0)
[2024-10-15 07:16] LABS: Alanine Aminotransferase 25 U/L (6-50); Alkaline Phosphatase 70 U/L (38-126); Anion Gap 7 mmol/L (4-12); Aspartate Amino Transferase 17 U/L (17-59); Bilirubin,Total 0.5 mg/dL (0.2-1.3); Blood Urea Nitrogen 20 mg/dL (9-20); Calcium 8.5 mg/dL (8.4-10.2); Carbon Dioxide 27 mmol/L (22-30); Chloride 103 mmol/L (98-107); Estimated CRCL calculation 91 ml/min; Estimated Glomerular Filt Rate > 60; Glucose 249 mg/dL (65-110); Magnesium 1.9 mg/dL (1.6-2.3); Sodium 137 mmol/L (137-145)
[2024-10-15 08:18] LABS: Glucose Point of Care 220 mg/dl (65-105)
[2024-10-15] MEDS: methylPREDNISolone SOD SUCC 125 MG VIAL 60 MG IV PUSH ×2 (08:56→20:32)
[2024-10-15] MEDS: MEMANTINE 5 MG TABLET PO (08:58)
[2024-10-15] MEDS: PANTOPRAZOLE 40 MG TABLET PO ×2 (08:58→20:30)
[2024-10-15] MEDS: FLUTICASONE PROPIONATE 0.05% NA SPR 16 GM BTL (*BKC) 1 SPRAY NASAL (08:58)
[2024-10-15] MEDS: ALBUTEROL SULFATE NEB 2.5 MG/3 ML INH INHALATION ×3 (09:05→20:43)
[2024-10-15 11:52] LABS: Glucose Point of Care 393 mg/dl (65-105)
[2024-10-15] MEDS: INSULIN ASPART (*BKC) 100 UNITS/ML SUB-Q (12:00)
--- NOTE | 2024-10-15 13:18 | PM.IMPN ---
Progress Note: A&P Assessment and Plan (1) COPD exacerbation: Code(s): J44.1 - Chronic obstructive pulmonary disease with (acute) exacerbation Status: Acute Assessment and Plan: Respiratory panel negative. Chest X-ray: Findings: COPD pattern of the lungs present. No definite acute abnormality. Cardiomediastinal silhouette is stable. Bones and soft tissues are unremarkable. Impression: COPD. No acute abnormality. WBC elevated 11.6. Azithromycin 500 mg IVPB daily and Ceftriaxone 1 gram IVPB daily. Guaifenesin 1,200 mg PO q 12. Methylprednisone decreased to 60 mg IVP BID. Albuterol neb q6. 02@1LNC with Sa02 93%. Monitor labs. (2) Former smoker: Code(s): Z87.891 - Personal history of nicotine dependence Status: Acute Assessment and Plan: continue to refrain from smoking. Subjective Date/time seen: 10/15/24 13:18 Interval history: Patient lying in bed with head of bed elevated. Patient reports breathing is improving but still having shortness of breath on exertion. Patient denies chest pain, palpitations, headache, dizziness, nausea, or vomiting. Coughing up greenish yellow sputum. Review of Systems Review of Systems: All systems reviewed & are unremarkable except as noted in HPI and below Exam Const: General: comfortable and no acute distress Resp: Effort & Inspection: normal respiratory effort Auscultation: diminished lung sounds Cardio: Rate: regular rate Rhythm: regular rhythm Other: Telemetry- SR 80 GI: GI Palp: Yes Soft to palpation Auscultation: normal bowel sounds Neuro: Speech: normal speech Extrem: General: no pedal edema Psych: Mental Status: mental status grossly normal Affect: normal affect Objective Data Vital Signs Vital Signs: Vital Signs - 24 hr 10/14/24 13:20 10/14/24 13:47 10/14/24 13:48 Temperature Pulse Rate 71 90 Respiratory Rate 18 18 Blood Pressure 136/72 Pulse Oximetry 98 98 Oxygen Delivery Nasal Cannula Oxygen Flow Rate 2 Fraction of Inspired Oxygen 10/14/24 13:54 10/14/24 14:00 10/14/24 16:00 Temperature 97.2 F L Pulse Rate 78 66 Respiratory Rate 20 18 Blood Pressure 136/76 147/72 H Pulse Oximetry 98 98 Oxygen Delivery Oxygen Flow Rate Fraction of Inspired Oxygen 10/14/24 20:00 10/14/24 20:00 10/14/24 20:05 Temperature Pulse Rate 83 Respiratory Rate Blood Pressure Pulse Oximetry 97 95 Oxygen Delivery Nasal Cannula Nasal Cannula Oxygen Flow Rate 2 2 Fraction of Inspired Oxygen 28 10/14/24 20:05 10/14/24 20:13 10/14/24 20:43 Temperature 98.2 F Pulse Rate 67 69 75 Respiratory Rate 20 20 16 Blood Pressure 132/74 Pulse Oximetry 100 Oxygen Delivery Oxygen Flow Rate Fraction of Inspired Oxygen 10/15/24 00:00 10/15/24 04:00 10/15/24 05:25 Temperature 97.2 F L Pulse Rate 68 42 L 71 Respiratory Rate 16 Blood Pressure 129/66 Pulse Oximetry 93 Oxygen Delivery Oxygen Flow Rate Fraction of Inspired Oxygen 10/15/24 08:00 10/15/24 09:05 10/15/24 09:05 Temperature Pulse Rate 46 L 84 Respiratory Rate 18 Blood Pressure Pulse Oximetry 95 Oxygen Delivery Nasal Cannula Oxygen Flow Rate 1 Fraction of Inspired Oxygen 10/15/24 09:15 Temperature Pulse Rate 85 Respiratory Rate 18 Blood Pressure Pulse Oximetry Oxygen Delivery Oxygen Flow Rate Fraction of Inspired Oxygen Intake/Output Intake/Output: Intake & Output 10/12/24 10/13/24 10/14/24 10/15/24 23:59 23:59 23:59 23:59 Intake Total 790 1260 Balance 790 1260 Meds/Results Medications: Active Medications Generic Name Dose Route Start Last Admin Trade Name Freq PRN Reason Stop Dose Admin Albuterol 2.5 mg 10/14/24 08:00 10/15/24 09:05 Albuterol Sulfate Neb 2.5 Mg/3 Ml Inh INHALATION 2.5 mg Q6HRT [facility] Administration Albuterol 2 puff 10/14/24 13:58 Albuterol Sulfate (*Sp) Aerosol 1 Puff INHALATION QID PRN shortness of breath or wheezing Atorvastatin Calcium 20 mg 10/14/24 21:00 10/14/24 20:46 Atorvastatin 20 Mg Tablet PO 20 mg HS [facility] Administration Fluticasone Propionate 1 spray 10/15/24 09:00 10/15/24 08:58 Fluticasone Propionate 0.05% Na Spr 16 Gm Btl (*Bkc) NASAL 1 spray DAILY [facility] Administration Gabapentin 100 mg 10/14/24 14:01 Gabapentin 100 Mg Capsule PO DAILY PRN NEUROPATHIC PAIN Guaifenesin 1,200 mg 10/14/24 14:00 10/15/24 01:55 Guaifenesin 12 Hr 600 Mg Tabcr PO 1,200 mg Q12H [facility] Administration Ceftriaxone Sodium 1 gm in 50 mls @ 100 mls/hr 10/15/24 05:00 10/15/24 05:47 Rocephin 1 Gm/Ns 50 Ml IVPB Infused Q24H [facility] Infusion Azithromycin 500 mg in 250 mls @ 250 mls/hr 10/15/24 05:00 10/15/24 05:16 Zithromax IVPB Infused Q24H [facility] Infusion Memantine 5 mg 10/15/24 09:00 10/15/24 08:58 Memantine 5 Mg Tablet PO 5 mg DAILY [facility] Administration Methylprednisolone Sodium Succinate 60 mg 10/14/24 21:00 10/15/24 08:56 Methylprednisolone Sod Succ 125 Mg Vial IV PUSH 60 mg Q12HR [facility] Administration Ondansetron HCl 4 mg 10/14/24 14:02 Ondansetron Hcl Odt 4 Mg Tablet PO Q8H PRN nausea and vomiting Pantoprazole Sodium 40 mg 10/14/24 21:00 10/15/24 08:58 Pantoprazole 40 Mg Tablet PO 40 mg Q12HR [facility] Administration Tamsulosin HCl 0.4 mg 10/14/24 21:00 10/14/24 20:46 Tamsulosin Hcl 0.4 Mg Capsule PO 0.4 mg HS COL[facility] Administration Radiology Results: ITS Impressions Chest X-Ray 10/14/24 06:04 Impression: COPD. No acute abnormality. Labs Labs: Laboratory Results - last 24 hr 10/14/24 10/14/24 10/15/24 17:15 20:46 06:28 WBC 11.6 H RBC 4.27 L Hgb 12.0 L Hct 37.0 L MCV 86.7 MCH 28.1 MCHC 32.4 RDW 13.0 Plt Count 161 MPV 10.5 H Immature Gran % (Auto) 2.3 H Neut % (Auto) 74.8 H Lymph % (Auto) 19.2 [place] % (Auto) 3.4 Eos % (Auto) 0.0 Baso % (Auto) 0.3 Lymph # (Auto) 2.24 [place] # (Auto) 0.4 Eos # (Auto) 0.0 Baso # (Auto) 0.0 Abs Immat Gran (auto) 0.27 H Absolute Neuts (auto) 8.7 H Absolute Nucleated RBC 0.000 Nucleated RBC % 0.0 Sodium 137 Potassium 4.2 Chloride 103 Carbon Dioxide 27 Anion Gap 7 BUN 20 Creatinine 0.69 L Estim Creat Clear Calc 91 Estimated GFR > 60 Glucose 249 H POC Capillary Glucose 273 H 310 H Calcium 8.5 Magnesium 1.9 Total Bilirubin 0.5 AST 17 ALT 25 Alkaline Phosphatase 70 Total Protein 6.0 L Albumin 3.0 L 10/15/24 10/15/24 08:14 11:48 WBC RBC Hgb Hct MCV MCH MCHC RDW Plt Count MPV Immature Gran % (Auto) Neut % (Auto) Lymph % (Auto) [place] % (Auto) Eos % (Auto) Baso % (Auto) Lymph # (Auto) [place] # (Auto) Eos # (Auto) Baso # (Auto) Abs Immat Gran (auto) Absolute Neuts (auto) Absolute Nucleated RBC Nucleated RBC % Sodium Potassium Chloride Carbon Dioxide Anion Gap BUN Creatinine Estim Creat Clear Calc Estimated GFR Glucose POC Capillary Glucose 220 H 393 H Calcium Magnesium Total Bilirubin AST ALT Alkaline Phosphatase Total Protein Albumin Quality VTE Prophylaxis VTE prophylaxis: mechanical ordered and pharmacologic ordered
[2024-10-15 16:49] LABS: Glucose Point of Care 317 mg/dl (65-105)
[2024-10-15] MEDS: ATORVASTATIN 20 MG TABLET PO (20:30)
[2024-10-15] MEDS: TAMSULOSIN HCL 0.4 MG CAPSULE PO (20:30)
[2024-10-15 21:06] LABS: Glucose Point of Care 323 mg/dl (65-105)
[2024-10-16] VITALS (15 sets, daily range): BP systolic 126–133; BP diastolic 62–76; PULSE 49–84; RESP 16–18; TEMP 36.7–36.8; O2SAT 93–96
[2024-10-16] MEDS: guaiFENesin 12 HR 600 MG TABCR 1200 MG PO ×2 (02:33→15:41)
[2024-10-16] MEDS: AZITHROMYCIN 500 MG/NS 250 ML 500 MG/250 ML BAG 250 MG IVPB (04:30)
[2024-10-16 06:57] LABS: Basophils Percent Auto 0.3 % (0.2-1.2); Hematocrit 35.1 % (42.0-52.0); Hemoglobin 11.3 g/dL (14.0-18.0); Immature Granulocyte Absolute 0.74 K/mm3 (0.00-0.031); Immature Granulocyte Percent A 5.5 % (0-0.5); Lymphocytes Absolute Auto 2.95 K/mm3 (0.9-3.2); Lymphocytes Percent Auto 21.8 % (18.3-44.2); Mean Corpuscular HGB Conc 32.2 g/dl (32-36); Mean Corpuscular Hemoglobin 28.3 pg (26-34); Mean Corpuscular Volume 87.8 fl (80-100); Mean Platelet Volume 10.7 fl (7.4-10.4); Monocytes Absolute Auto 0.6 K/mm3 (0.1-0.6); Monocytes Percent Auto 4.2 % (2.6-8.5); Neutrophils Absolute Auto 9.3 K/mm3 (1.3-6.7); Neutrophils Percent Auto 68.2 % (45.5-73.1); Platelet Count Result 184 k/mm3 (150-375); Red Cell Distribution Width 13.1 % (11.5-14.5); White Blood Count 13.6 K/mm3 (4.5-10.0)
[2024-10-16 07:05] LABS: Alanine Aminotransferase 23 U/L (6-50); Albumin Level 2.8 g/dL (3.5-5.1); Alkaline Phosphatase 67 U/L (38-126); Anion Gap 7 mmol/L (4-12); Aspartate Amino Transferase 14 U/L (17-59); Bilirubin,Total 0.4 mg/dL (0.2-1.3); Blood Urea Nitrogen 25 mg/dL (9-20); Calcium 8.1 mg/dL (8.4-10.2); Carbon Dioxide 25 mmol/L (22-30); Chloride 104 mmol/L (98-107); Estimated CRCL calculation 83 ml/min; Estimated Glomerular Filt Rate > 60; Glucose 263 mg/dL (65-110); Magnesium 1.7 mg/dL (1.6-2.3); Potassium 4.1 mmol/L (3.4-5.0); Sodium 136 mmol/L (137-145)
[2024-10-16 07:56] LABS: Glucose Point of Care 250 mg/dl (65-105)
[2024-10-16] MEDS: INSULIN ASPART (*BKC) 100 UNITS/ML SUB-Q ×4 (09:11→23:44)
[2024-10-16] MEDS: FLUTICASONE PROPIONATE 0.05% NA SPR 16 GM BTL (*BKC) 1 SPRAY NASAL (09:12)
[2024-10-16] MEDS: methylPREDNISolone SOD SUCC 125 MG VIAL 60 MG IV PUSH (09:13)
[2024-10-16] MEDS: PANTOPRAZOLE 40 MG TABLET PO ×2 (09:13→20:29)
[2024-10-16] MEDS: MEMANTINE 5 MG TABLET PO (09:13)
[2024-10-16] MEDS: ALBUTEROL SULFATE NEB 2.5 MG/3 ML INH INHALATION ×2 (09:43→21:34)
[2024-10-16 11:44] LABS: Glucose Point of Care 261 mg/dl (65-105)
--- NOTE | 2024-10-16 13:18 | PM.IMPN ---
Progress Note: A&P Assessment and Plan (1) COPD exacerbation: Code(s): J44.1 - Chronic obstructive pulmonary disease with (acute) exacerbation Status: Acute Assessment and Plan: Respiratory panel negative. Chest X-ray: Findings: COPD pattern of the lungs present. No definite acute abnormality. Cardiomediastinal silhouette is stable. Bones and soft tissues are unremarkable. Impression: COPD. No acute abnormality. WBC elevated 13.6. Azithromycin 500 mg IVPB daily and Ceftriaxone 1 gram IVPB daily. Guaifenesin 1,200 mg PO q 12. Methylprednisone decreased to 60 mg IVP daily. Albuterol neb q6. Sa02 96% RA. Incentive spirometer. Monitor labs. (2) Former smoker: Code(s): Z87.891 - Personal history of nicotine dependence Status: Acute Assessment and Plan: continue to refrain from smoking. Subjective Date/time seen: 10/16/24 13:18 Interval history: Patient lying in bed with head of bed elevated. Patient reports breathing is improving but still having shortness of breath on exertion. Patient denies chest pain, palpitations, headache, dizziness, nausea, or vomiting. Coughing up greenish yellow sputum. Review of Systems Review of Systems: All systems reviewed & are unremarkable except as noted in HPI and below Exam Const: General: comfortable and no acute distress Resp: Effort & Inspection: normal respiratory effort Auscultation: diminished lung sounds Cardio: Rate: regular rate Rhythm: regular rhythm Other: Telemetry- SR 77. GI: GI Palp: Yes Soft to palpation Auscultation: normal bowel sounds Neuro: Speech: normal speech Extrem: General: no pedal edema Psych: Mental Status: mental status grossly normal Affect: normal affect Objective Data Vital Signs Vital Signs: Vital Signs - 24 hr 10/15/24 14:00 10/15/24 14:08 10/15/24 14:18 Temperature 97.3 F L Pulse Rate 72 80 80 Respiratory Rate 20 18 18 Blood Pressure 127/62 Pulse Oximetry 93 Oxygen Delivery Fraction of Inspired Oxygen 10/15/24 16:00 10/15/24 20:00 10/15/24 20:00 Temperature Pulse Rate 73 51 L Respiratory Rate Blood Pressure Pulse Oximetry Oxygen Delivery Room Air Fraction of Inspired Oxygen 10/15/24 20:36 10/15/24 20:43 10/15/24 20:43 Temperature 99.6 F Pulse Rate 50 L 54 L Respiratory Rate 20 18 Blood Pressure 117/64 Pulse Oximetry 95 93 Oxygen Delivery Room Air Fraction of Inspired Oxygen 21 10/15/24 20:57 10/16/24 00:00 10/16/24 04:00 Temperature Pulse Rate 62 67 64 Respiratory Rate 18 Blood Pressure Pulse Oximetry Oxygen Delivery Fraction of Inspired Oxygen 10/16/24 04:29 10/16/24 09:43 10/16/24 09:52 Temperature 98.2 F Pulse Rate 50 L 80 84 Respiratory Rate 16 18 18 Blood Pressure 126/62 Pulse Oximetry 96 Oxygen Delivery Fraction of Inspired Oxygen 10/16/24 12:20 Temperature Pulse Rate Respiratory Rate Blood Pressure Pulse Oximetry 95 Oxygen Delivery Room Air Fraction of Inspired Oxygen Intake/Output Intake/Output: Intake & Output 10/13/24 10/14/24 10/15/24 10/16/24 23:59 23:59 23:59 23:59 Intake Total 790 2720 1170 Output Total 200 Balance 790 2520 1170 Meds/Results Medications: Active Medications Generic Name Dose Route Start Last Admin Trade Name Freq PRN Reason Stop Dose Admin Albuterol 2.5 mg 10/14/24 08:00 10/16/24 09:43 Albuterol Sulfate Neb 2.5 Mg/3 Ml Inh INHALATION 2.5 mg Q6HRT [facility] Administration Albuterol 2 puff 10/14/24 13:58 Albuterol Sulfate (*Sp) Aerosol 1 Puff INHALATION QID PRN shortness of breath or wheezing Atorvastatin Calcium 20 mg 10/14/24 21:00 10/15/24 20:30 Atorvastatin 20 Mg Tablet PO 20 mg HS [facility] Administration Dextrose 12.5 gm 10/16/24 08:35 Dextrose 50% 25 Gm/50 Ml Syringe IV PUSH PRN PRN Hypoglycemia Protocol Fluticasone Propionate 1 spray 10/15/24 09:00 10/16/24 09:12 Fluticasone Propionate 0.05% Na Spr 16 Gm Btl (*Bkc) NASAL 1 spray DAILY [facility] Administration Gabapentin 100 mg 10/14/24 14:01 Gabapentin 100 Mg Capsule PO DAILY PRN NEUROPATHIC PAIN Glucagon 1 mg 10/16/24 08:35 Glucagon For Inj 1 Mg Vial IM PRN PRN Hypoglycemia Protocol Glucose 15 gm 10/16/24 08:35 Glucose Oral Gel 15 Gm Of Glucse In 37.5 Gm Tube PO PRN PRN Hypoglycemia Protocol Guaifenesin 1,200 mg 10/14/24 14:00 10/16/24 02:33 Guaifenesin 12 Hr 600 Mg Tabcr PO 1,200 mg Q12H [facility] Administration Ceftriaxone Sodium 1 gm in 50 mls @ 100 mls/hr 10/15/24 05:00 10/16/24 06:02 Rocephin 1 Gm/Ns 50 Ml IVPB Infused Q24H [facility] Infusion Azithromycin 500 mg in 250 mls @ 250 mls/hr 10/15/24 05:00 10/16/24 05:30 Zithromax IVPB Infused Q24H [facility] Infusion Dextrose 1,000 mls @ 100 mls/hr 10/16/24 08:35 Dextrose 5% 1,000 Ml IVPB PRN PRN Hypoglycemia Protocol Memantine 5 mg 10/15/24 09:00 10/16/24 09:13 Memantine 5 Mg Tablet PO 5 mg DAILY [facility] Administration Methylprednisolone Sodium Succinate 60 mg 10/14/24 21:00 10/16/24 09:13 Methylprednisolone Sod Succ 125 Mg Vial IV PUSH 60 mg Q12HR [facility] Administration Ondansetron HCl 4 mg 10/14/24 14:02 Ondansetron Hcl Odt 4 Mg Tablet PO Q8H PRN nausea and vomiting Pantoprazole Sodium 40 mg 10/14/24 21:00 10/16/24 09:13 Pantoprazole 40 Mg Tablet PO 40 mg Q12HR [facility] Administration Tamsulosin HCl 0.4 mg 10/14/24 21:00 10/15/24 20:30 Tamsulosin Hcl 0.4 Mg Capsule PO 0.4 mg HS COLTON Administration Radiology Results: ITS Impressions Chest X-Ray 10/14/24 06:04 Impression: COPD. No acute abnormality. Labs Labs: Laboratory Results - last 24 hr 10/15/24 10/15/24 10/16/24 16:43 20:38 06:42 WBC RBC Hgb Hct MCV MCH MCHC RDW Plt Count MPV Immature Gran % (Auto) Neut % (Auto) Lymph % (Auto) [place] % (Auto) Eos % (Auto) Baso % (Auto) Lymph # (Auto) [place] # (Auto) Eos # (Auto) Baso # (Auto) Abs Immat Gran (auto) Absolute Neuts (auto) Absolute Nucleated RBC Nucleated RBC % Sodium 136 L Potassium 4.1 Chloride 104 Carbon Dioxide 25 Anion Gap 7 BUN 25 H Creatinine 0.77 Estim Creat Clear Calc 83 Estimated GFR > 60 Glucose 263 H POC Capillary Glucose 317 H 323 H Calcium 8.1 L Magnesium 1.7 Total Bilirubin 0.4 AST 14 L ALT 23 Alkaline Phosphatase 67 Total Protein 6.0 L Albumin 2.8 L 10/16/24 10/16/24 10/16/24 06:43 07:43 11:42 WBC 13.6 H RBC 4.00 L Hgb 11.3 L Hct 35.1 L MCV 87.8 MCH 28.3 MCHC 32.2 RDW 13.1 Plt Count 184 MPV 10.7 H Immature Gran % (Auto) 5.5 H Neut % (Auto) 68.2 Lymph % (Auto) 21.8 [place] % (Auto) 4.2 Eos % (Auto) 0.0 Baso % (Auto) 0.3 Lymph # (Auto) 2.95 [place] # (Auto) 0.6 Eos # (Auto) 0.0 Baso # (Auto) 0.0 Abs Immat Gran (auto) 0.74 H Absolute Neuts (auto) 9.3 H Absolute Nucleated RBC 0.000 Nucleated RBC % 0.0 Sodium Potassium Chloride Carbon Dioxide Anion Gap BUN Creatinine Estim Creat Clear Calc Estimated GFR Glucose POC Capillary Glucose 250 H 261 H Calcium Magnesium Total Bilirubin AST ALT Alkaline Phosphatase Total Protein Albumin Quality VTE Prophylaxis VTE prophylaxis: mechanical ordered and pharmacologic ordered
[2024-10-16 16:46] LABS: Glucose Point of Care 268 mg/dl (65-105)
--- NOTE | 2024-10-16 17:03 | PCRCNOTE ---
Window of time for administration has passed. See next scheduled administration.
--- NOTE | 2024-10-16 17:03 | PCRCNOTE ---
Window of time for administration has passed. See next scheduled administration.
[2024-10-16] MEDS: TAMSULOSIN HCL 0.4 MG CAPSULE PO (20:29)
[2024-10-16] MEDS: ATORVASTATIN 20 MG TABLET PO (20:29)
[2024-10-16 22:09] LABS: Glucose Point of Care 227 mg/dl (65-105)
[2024-10-16] MEDS: INSULIN GLARGINE (*BKC) 100 UNITS/ML 15 UNITS SUB-Q (23:44)
[2024-10-17] VITALS (17 sets, daily range): BP systolic 119–140; BP diastolic 62–71; PULSE 54–82; RESP 18–20; TEMP 36.6–36.9; O2SAT 93–99
[2024-10-17] MEDS: guaiFENesin 12 HR 600 MG TABCR 1200 MG PO ×2 (03:10→14:54)
[2024-10-17] MEDS: AZITHROMYCIN 500 MG/NS 250 ML 500 MG/250 ML BAG 250 MG IVPB (04:10)
[2024-10-17 06:59] LABS: Basophils Absolute Auto 0.1 K/mm3 (0.0-0.1); Basophils Percent Auto 0.9 % (0.2-1.2); Eosinophils Percent Auto 0.1 % (0-4.4); Hematocrit 36.7 % (42.0-52.0); Hemoglobin 11.9 g/dL (14.0-18.0); Immature Granulocyte Absolute 1.22 K/mm3 (0.00-0.031); Immature Granulocyte Percent A 9.3 % (0-0.5); Lymphocytes Absolute Auto 4.72 K/mm3 (0.9-3.2); Mean Corpuscular HGB Conc 32.4 g/dl (32-36); Mean Corpuscular Hemoglobin 28.6 pg (26-34); Mean Corpuscular Volume 88.2 fl (80-100); Mean Platelet Volume 10.6 fl (7.4-10.4); Monocytes Absolute Auto 0.9 K/mm3 (0.1-0.6); Monocytes Percent Auto 6.5 % (2.6-8.5); Neutrophils Absolute Auto 6.2 K/mm3 (1.3-6.7); Neutrophils Percent Auto 47.2 % (45.5-73.1); Platelet Count Result 235 k/mm3 (150-375); Red Blood Count 4.16 M/mm3 (4.6-6.20); Red Cell Distribution Width 13.2 % (11.5-14.5); White Blood Count 13.1 K/mm3 (4.5-10.0)
[2024-10-17 07:11] LABS: Alanine Aminotransferase 23 U/L (6-50); Albumin Level 2.8 g/dL (3.5-5.1); Alkaline Phosphatase 64 U/L (38-126); Anion Gap 4 mmol/L (4-12); Aspartate Amino Transferase 16 U/L (17-59); Bilirubin,Total 0.4 mg/dL (0.2-1.3); Blood Urea Nitrogen 21 mg/dL (9-20); Calcium 7.9 mg/dL (8.4-10.2); Carbon Dioxide 29 mmol/L (22-30); Chloride 105 mmol/L (98-107); Estimated CRCL calculation 81 ml/min; Estimated Glomerular Filt Rate > 60; Glucose 145 mg/dL (65-110); Magnesium 1.8 mg/dL (1.6-2.3); Potassium 3.9 mmol/L (3.4-5.0); Sodium 138 mmol/L (137-145)
[2024-10-17] MEDS: ALBUTEROL SULFATE NEB 2.5 MG/3 ML INH INHALATION ×3 (07:28→20:03)
[2024-10-17 07:55] LABS: Glucose Point of Care 137 mg/dl (65-105)
[2024-10-17 08:17] LABS: Ovalocytes 1+; Platelet Estimate Adequate (Adequate); Schistocytes None Seen
[2024-10-17] MEDS: MEMANTINE 5 MG TABLET PO (08:44)
[2024-10-17] MEDS: PANTOPRAZOLE 40 MG TABLET PO ×2 (08:44→20:28)
[2024-10-17] MEDS: predniSONE 20 MG TABLET 40 MG PO (08:45)
[2024-10-17] MEDS: FLUTICASONE PROPIONATE 0.05% NA SPR 16 GM BTL (*BKC) 1 SPRAY NASAL (08:46)
--- NOTE | 2024-10-17 09:56 | PM.IMPN ---
Progress Note: A&P Assessment and Plan (1) COPD exacerbation: Code(s): J44.1 - Chronic obstructive pulmonary disease with (acute) exacerbation Status: Acute Assessment and Plan: Respiratory panel negative. Chest X-ray: Findings: COPD pattern of the lungs present. No definite acute abnormality. Cardiomediastinal silhouette is stable. Bones and soft tissues are unremarkable. Impression: COPD. No acute abnormality. WBC elevated 13.1. Azithromycin 500 mg IVPB daily and Ceftriaxone 1 gram IVPB daily. Guaifenesin 1,200 mg PO q 12. Steroids changed to oral Prednisone 40 mg PO daily. Albuterol neb q6. Sa02 94% RA. Incentive spirometer. Telemetry. Monitor labs. (2) Former smoker: Code(s): Z87.891 - Personal history of nicotine dependence Status: Acute Assessment and Plan: continue to refrain from smoking. Subjective Date/time seen: 10/17/24 09:56 Interval history: Nurse called this morning that patient got up 203 on heart rate when in the bathroom having a bowel movement. Patient denied straining to have a bowel movement, chest pain, palpitations, or dizziness. EKG showed SR 80 with QTc 405. Review of Systems Review of Systems: All systems reviewed & are unremarkable except as noted in HPI and below Exam Const: General: comfortable and no acute distress Resp: Effort & Inspection: normal respiratory effort Auscultation: rhonchi and diminished lung sounds Cardio: Rate: regular rate Rhythm: regular rhythm Other: SR-80 GI: GI Palp: Yes Soft to palpation Auscultation: normal bowel sounds Neuro: Speech: normal speech Extrem: General: no pedal edema Psych: Mental Status: mental status grossly normal Affect: normal affect Objective Data Vital Signs Vital Signs: Vital Signs - 24 hr 10/16/24 12:03 10/16/24 12:20 10/16/24 14:16 Temperature 98.2 F Pulse Rate 74 60 Respiratory Rate 17 Blood Pressure 126/76 Pulse Oximetry 95 96 Oxygen Delivery Room Air Fraction of Inspired Oxygen 10/16/24 16:01 10/16/24 20:00 10/16/24 20:00 Temperature Pulse Rate 49 L 59 L Respiratory Rate Blood Pressure Pulse Oximetry Oxygen Delivery Room Air Fraction of Inspired Oxygen 10/16/24 21:34 10/16/24 21:39 10/16/24 21:44 Temperature Pulse Rate 60 60 65 Respiratory Rate 18 18 Blood Pressure Pulse Oximetry 93 Oxygen Delivery Room Air Fraction of Inspired Oxygen 10/16/24 22:00 10/17/24 00:00 10/17/24 04:00 Temperature 98.1 F Pulse Rate 60 54 L 62 Respiratory Rate 18 Blood Pressure 133/71 Pulse Oximetry 95 Oxygen Delivery Fraction of Inspired Oxygen 10/17/24 06:00 10/17/24 07:28 10/17/24 07:28 Temperature 98.1 F Pulse Rate 60 55 L Respiratory Rate 18 20 Blood Pressure 119/67 Pulse Oximetry 95 99 Oxygen Delivery Room Air Fraction of Inspired Oxygen 21 10/17/24 07:39 Temperature Pulse Rate 58 L Respiratory Rate 20 Blood Pressure Pulse Oximetry Oxygen Delivery Fraction of Inspired Oxygen Intake/Output Intake/Output: Intake & Output 10/14/24 10/15/24 10/16/24 10/17/24 23:59 23:59 23:59 23:59 Intake Total 790 2720 1960 1040 Output Total 200 700 Balance 790 2520 1960 340 Meds/Results Medications: Active Medications Generic Name Dose Route Start Last Admin Trade Name Freq PRN Reason Stop Dose Admin Albuterol 2.5 mg 10/14/24 08:00 10/17/24 07:28 Albuterol Sulfate Neb 2.5 Mg/3 Ml Inh INHALATION 2.5 mg Q6HRT [facility] Administration Albuterol 2 puff 10/14/24 13:58 Albuterol Sulfate (*Sp) Aerosol 1 Puff INHALATION QID PRN shortness of breath or wheezing Atorvastatin Calcium 20 mg 10/14/24 21:00 10/16/24 20:29 Atorvastatin 20 Mg Tablet PO 20 mg HS [facility] Administration Dextrose 12.5 gm 10/16/24 08:35 Dextrose 50% 25 Gm/50 Ml Syringe IV PUSH PRN PRN Hypoglycemia Protocol Fluticasone Propionate 1 spray 10/15/24 09:00 10/17/24 08:46 Fluticasone Propionate 0.05% Na Spr 16 Gm Btl (*Bkc) NASAL 1 spray DAILY [facility] Administration Gabapentin 100 mg 10/14/24 14:01 Gabapentin 100 Mg Capsule PO DAILY PRN NEUROPATHIC PAIN Glucagon 1 mg 10/16/24 08:35 Glucagon For Inj 1 Mg Vial IM PRN PRN Hypoglycemia Protocol Glucose 15 gm 10/16/24 08:35 Glucose Oral Gel 15 Gm Of Glucse In 37.5 Gm Tube PO PRN PRN Hypoglycemia Protocol Guaifenesin 1,200 mg 10/14/24 14:00 10/17/24 03:10 Guaifenesin 12 Hr 600 Mg Tabcr PO 1,200 mg Q12H [facility] Administration Ceftriaxone Sodium 1 gm in 50 mls @ 100 mls/hr 10/15/24 05:00 10/17/24 05:45 Rocephin 1 Gm/Ns 50 Ml IVPB Infused Q24H [facility] Infusion Azithromycin 500 mg in 250 mls @ 250 mls/hr 10/15/24 05:00 10/17/24 05:10 Zithromax IVPB Infused Q24H [facility] Infusion Dextrose 1,000 mls @ 100 mls/hr 10/16/24 08:35 Dextrose 5% 1,000 Ml IVPB PRN PRN Hypoglycemia Protocol Insulin Aspart 0 units 10/16/24 23:21 10/17/24 08:40 Insulin Aspart (*Bkc) 100 Units/Ml SUB-Q Not Given ACHS [facility] Protocol Insulin Glargine 15 units 10/16/24 23:14 10/16/24 23:44 Insulin Glargine (*Bkc) 100 Units/Ml SUB-Q 15 units HS [facility] Administration Memantine 5 mg 10/15/24 09:00 10/17/24 08:44 Memantine 5 Mg Tablet PO 5 mg DAILY [facility] Administration Ondansetron HCl 4 mg 10/14/24 14:02 Ondansetron Hcl Odt 4 Mg Tablet PO Q8H PRN nausea and vomiting Pantoprazole Sodium 40 mg 10/14/24 21:00 10/17/24 08:44 Pantoprazole 40 Mg Tablet PO 40 mg Q12HR [facility] Administration Prednisone 40 mg 10/17/24 09:00 10/17/24 08:45 Prednisone 20 Mg Tablet PO 10/22/24 08:59 40 mg DAILY@0900 [facility] Administration Tamsulosin HCl 0.4 mg 10/14/24 21:00 10/16/24 20:29 Tamsulosin Hcl 0.4 Mg Capsule PO 0.4 mg HS [facility] Administration Radiology Results: ITS Impressions Chest X-Ray 10/14/24 06:04 Impression: COPD. No acute abnormality. Labs Labs: Laboratory Results - last 24 hr 10/16/24 10/16/24 10/16/24 11:42 16:43 22:06 WBC RBC Hgb Hct MCV MCH MCHC RDW Plt Count MPV Immature Gran % (Auto) Neut % (Auto) Lymph % (Auto) [place] % (Auto) Eos % (Auto) Baso % (Auto) Lymph # (Auto) [place] # (Auto) Eos # (Auto) Baso # (Auto) Abs Immat Gran (auto) Absolute Neuts (auto) Absolute Nucleated RBC Band Neutrophils % Nucleated RBC % Platelet Estimate Ovalocytes Schistocytes Sodium Potassium Chloride Carbon Dioxide Anion Gap BUN Creatinine Estim Creat Clear Calc Estimated GFR Glucose POC Capillary Glucose 261 H 268 H 227 H Calcium Magnesium Total Bilirubin AST ALT Alkaline Phosphatase Total Protein Albumin 10/17/24 10/17/24 06:15 07:44 WBC 13.1 H RBC 4.16 L Hgb 11.9 L Hct 36.7 L MCV 88.2 MCH 28.6 MCHC 32.4 RDW 13.2 Plt Count 235 MPV 10.6 H Immature Gran % (Auto) 9.3 H Neut % (Auto) 47.2 Lymph % (Auto) 36.0 [place] % (Auto) 6.5 Eos % (Auto) 0.1 Baso % (Auto) 0.9 Lymph # (Auto) 4.72 H [place] # (Auto) 0.9 H Eos # (Auto) 0.0 Baso # (Auto) 0.1 Abs Immat Gran (auto) 1.22 H Absolute Neuts (auto) 6.2 Absolute Nucleated RBC 0.000 Band Neutrophils % Not Reportable Nucleated RBC % 0.0 Platelet Estimate Adequate Ovalocytes 1+ Schistocytes None seen Sodium 138 Potassium 3.9 Chloride 105 Carbon Dioxide 29 Anion Gap 4 BUN 21 H Creatinine 0.79 Estim Creat Clear Calc 81 Estimated GFR > 60 Glucose 145 H POC Capillary Glucose 137 H Calcium 7.9 L Magnesium 1.8 Total Bilirubin 0.4 AST 16 L ALT 23 Alkaline Phosphatase 64 Total Protein 5.0 L Albumin 2.8 L Quality VTE Prophylaxis VTE prophylaxis: mechanical ordered and pharmacologic ordered
[2024-10-17 11:43] LABS: Glucose Point of Care 198 mg/dl (65-105)
[2024-10-17 16:27] LABS: Glucose Point of Care 282 mg/dl (65-105)
[2024-10-17] MEDS: INSULIN ASPART (*BKC) 100 UNITS/ML SUB-Q ×2 (17:38→20:28)
[2024-10-17] MEDS: INSULIN GLARGINE (*BKC) 100 UNITS/ML 15 UNITS SUB-Q (20:28)
[2024-10-17] MEDS: TAMSULOSIN HCL 0.4 MG CAPSULE PO (20:28)
[2024-10-17] MEDS: ATORVASTATIN 20 MG TABLET PO (20:28)
[2024-10-17 21:13] LABS: Glucose Point of Care 361 mg/dl (65-105)
[2024-10-18] VITALS (11 sets, daily range): BP systolic 135; BP diastolic 60; PULSE 55–74; RESP 18–20; TEMP 36.4; O2SAT 95–96
[2024-10-18] MEDS: ALBUTEROL SULFATE NEB 2.5 MG/3 ML INH INHALATION ×3 (02:25→13:21)
[2024-10-18] MEDS: AZITHROMYCIN 500 MG/NS 250 ML 500 MG/250 ML BAG 250 MG IVPB (05:37)
[2024-10-18 08:29] LABS: Glucose Point of Care 121 mg/dl (65-105)
[2024-10-18 09:11] LABS: Basophils Percent Auto 0.1 % (0.2-1.2); Eosinophils Percent Auto 0.3 % (0-4.4); Hematocrit 41.7 % (42.0-52.0); Hemoglobin 13.5 g/dL (14.0-18.0); Immature Granulocyte Absolute 1.16 K/mm3 (0.00-0.031); Immature Granulocyte Percent A 9.3 % (0-0.5); Lymphocytes Absolute Auto 4.14 K/mm3 (0.9-3.2); Lymphocytes Percent Auto 33.4 % (18.3-44.2); Mean Corpuscular HGB Conc 32.4 g/dl (32-36); Mean Corpuscular Hemoglobin 28.8 pg (26-34); Mean Corpuscular Volume 88.9 fl (80-100); Mean Platelet Volume 10.2 fl (7.4-10.4); Monocytes Absolute Auto 0.7 K/mm3 (0.1-0.6); Monocytes Percent Auto 5.4 % (2.6-8.5); Neutrophils Absolute Auto 6.4 K/mm3 (1.3-6.7); Neutrophils Percent Auto 51.5 % (45.5-73.1); Platelet Count Result 230 k/mm3 (150-375); Red Blood Count 4.69 M/mm3 (4.6-6.20); Red Cell Distribution Width 13.2 % (11.5-14.5); White Blood Count 12.4 K/mm3 (4.5-10.0)
[2024-10-18 09:17] LABS: Alanine Aminotransferase 27 U/L (6-50); Albumin Level 3.2 g/dL (3.5-5.1); Alkaline Phosphatase 76 U/L (38-126); Anion Gap 7 mmol/L (4-12); Aspartate Amino Transferase 17 U/L (17-59); Bilirubin,Total 0.5 mg/dL (0.2-1.3); Blood Urea Nitrogen 17 mg/dL (9-20); Calcium 8.4 mg/dL (8.4-10.2); Carbon Dioxide 33 mmol/L (22-30); Chloride 102 mmol/L (98-107); Estimated CRCL calculation 76 ml/min; Estimated Glomerular Filt Rate > 60; Glucose 129 mg/dL (65-110); Sodium 142 mmol/L (137-145)
[2024-10-18] MEDS: predniSONE 20 MG TABLET 40 MG PO (09:22)
[2024-10-18] MEDS: MEMANTINE 5 MG TABLET PO (09:23)
[2024-10-18] MEDS: PANTOPRAZOLE 40 MG TABLET PO (09:23)
[2024-10-18] MEDS: FLUTICASONE PROPIONATE 0.05% NA SPR 16 GM BTL (*BKC) 1 SPRAY NASAL (09:23)
[2024-10-18 09:39] LABS: Hemoglobin A1C 6.7 % (<5.7)
--- NOTE | 2024-10-18 11:42 | PM.DS ---
DS: Admitting Diagnosis Discharge Date 10/18/2024 Admitting Diagnosis Shortness of breath DS: Discharge Diagnosis Discharge Diagnosis (1) COPD exacerbation: Code(s): J44.1 - Chronic obstructive pulmonary disease with (acute) exacerbation Status: Acute (2) Former smoker: Code(s): Z87.891 - Personal history of nicotine dependence Status: Acute DS: Summary Hospital Course Hospital Course: Respiratory panel negative. WBC 10.9. H&H 13.1/39.4. BNP 1280. EKG: SR 88 with QTc 409. Chest X-ray: Findings: COPD pattern of the lungs present. No definite acute abnormality. Cardiomediastinal silhouette is stable. Bones and soft tissues are unremarkable. Impression: COPD. No acute abnormality. Patient treated with nebulizer treatments, IV steroids, Azithromycin, Ceftriaxone, guaifenesin, and oxygen. Patient improved with Sa02 96% RA. Transitioned to oral antibiotics, steroids, and inhalers. Status at Discharge Functional status at discharge: independent ambulation Overall status at discharge: patient is progressing back to baseline Time Spent with Patient Time attestation: Total time spent providing and/or coordinating discharge services: Time spent: Greater than 30 minutes Exam Const: General: comfortable and no acute distress Resp: Effort & Inspection: normal respiratory effort Auscultation: diminished lung sounds Cardio: Rate: regular rate Rhythm: regular rhythm Other: Telemetry-SR 67. GI: GI Palp: Yes Soft to palpation Auscultation: normal bowel sounds Extrem: General: no pedal edema Psych: Mental Status: mental status grossly normal Affect: normal affect DS: Data Data Completed and Pending Labs on day of discharge: Labs from last 24 hours 10/18/24 10/18/24 10/17/24 08:28 07:59 20:25 WBC 12.4 H RBC 4.69 Hgb 13.5 L Hct 41.7 L MCV 88.9 MCH 28.8 MCHC 32.4 RDW 13.2 Plt Count 230 MPV 10.2 Immature Gran % (Auto) 9.3 H Neut % (Auto) 51.5 Lymph % (Auto) 33.4 [place] % (Auto) 5.4 Eos % (Auto) 0.3 Baso % (Auto) 0.1 L Lymph # (Auto) 4.14 H Highlands # (Auto) 0.7 H Eos # (Auto) 0.0 Baso # (Auto) 0.0 Abs Immat Gran (auto) 1.16 H Absolute Neuts (auto) 6.4 Absolute Nucleated RBC 0.000 Nucleated RBC % 0.0 Sodium 142 Potassium 4.0 Chloride 102 Carbon Dioxide 33 H Anion Gap 7 BUN 17 Creatinine 0.84 Estim Creat Clear Calc 76 Estimated GFR > 60 Glucose 129 H POC Capillary Glucose 121 H 361 H Hemoglobin A1c 6.7 H Calcium 8.4 Magnesium 2.0 Total Bilirubin 0.5 AST 17 ALT 27 Alkaline Phosphatase 76 Total Protein 6.0 L Albumin 3.2 L 10/17/24 10/17/24 16:10 11:36 WBC RBC Hgb Hct MCV MCH MCHC RDW Plt Count MPV Immature Gran % (Auto) Neut % (Auto) Lymph % (Auto) Highlands % (Auto) Eos % (Auto) Baso % (Auto) Lymph # (Auto) [place] # (Auto) Eos # (Auto) Baso # (Auto) Abs Immat Gran (auto) Absolute Neuts (auto) Absolute Nucleated RBC Nucleated RBC % Sodium Potassium Chloride Carbon Dioxide Anion Gap BUN Creatinine Estim Creat Clear Calc Estimated GFR Glucose POC Capillary Glucose 282 H 198 H Hemoglobin A1c Calcium Magnesium Total Bilirubin AST ALT Alkaline Phosphatase Total Protein Albumin Discharge Plan Discharge Attending physician on discharge: Juan Cornejo Discharging Clinician: Cyndi Ball Anticipated Discharge Date/Time: 10/18/24 13:30 Patient Disposition: Home, Self-Care Activity: may shower and as tolerated Diet: heart healthy Discharge Instructions: Follow up with primary provider in a week. Take medications as prescribed. If you develop shortness of breath not improved with rest or inhaler notify provider. Complete all doses of antibiotics. Avoid sick contacts. Use incentive spirometer 6 times an hour while awake. Thank you for entrusting [facility] with your healthcare! Patient Instructions: Antibiotic Form, COPD (Chronic Obstructive Pulmonary Disease) (DC) Patient Language: Lithuanian Stand Alone Forms: General Discharge Information Follow-up/Referrals: José Miguel Schulz MD [Physician] - 1 Week Ashly Razo MD [Physician] - 2 Weeks Discharge Medications: New prednisone 20 mg Tablet 40 mg PO DAILY@0900 Qty: 8 0RF Rx Instructions: Start on 10/19/24 amoxicillin-pot clavulanate 875-125 mg tablet 1 tablet PO Q12H Qty: 10 0RF Continued memantine 5 mg tablet 5 mg PO DAILY tadalafil 20 mg tablet See Rx Instructions .ROUTE .COMPLEX Qty: 30 1RF Dose Instruction: TAKE 1 TABLET BY MOUTH DAILY NEEDED FOR SEXUAL ACTIVITY Rx Instructions: TAKE 1 TABLET BY MOUTH DAILY NEEDED FOR SEXUAL ACTIVITY albuterol sulfate 90 mcg/actuation HFA aerosol inhaler 2 puff inhalation QID PRN (Reason: shortness of breath or wheezing) Qty: 8.5 1RF fluticasone propionate [Allergy Relief (fluticasone)] 50 mcg/actuation spray,suspension 1 spray intranasal DAILY Qty: 16 0RF Rx Instructions: administer into each nostril ondansetron 4 mg tablet,disintegrating 4 mg PO Q8H PRN (Reason: nausea and vomiting) Qty: 10 0RF guaifenesin [Mucinex] 1,200 mg tablet extended release 12hr 1,200 mg PO Q12H Qty: 20 0RF tamsulosin [Flomax] 0.4 mg capsule 0.4 mg PO HS (DME) Space Chamber Spacer See Rx Instructions .Route Qty: 1 0RF Rx Instructions: As directed gabapentin 100 mg tablet 100 mg PO DAILY PRN (Reason: pain) Trelegy Ellipta 200-62.5-25 mcg blister with device 1 inh inhalation DAILY Qty: 28 2RF atorvastatin 20 mg tablet See Rx Instructions .ROUTE .COMPLEX Qty: 90 1RF Dose Instruction: TAKE 1 TABLET BY MOUTH DAILY Rx Instructions: TAKE 1 TABLET BY MOUTH DAILY omeprazole 40 mg capsule,delayed release(DR/EC) See Rx Instructions .ROUTE .COMPLEX Qty: 90 1RF Dose Instruction: TAKE 1 CAPSULE BY MOUTH DAILY Rx Instructions: TAKE 1 CAPSULE BY MOUTH DAILY benzonatate 100 mg capsule 100 - 200 mg PO TID PRN (Reason: cough) Qty: 60 0RF Rx Instructions: Take 1 to 2 caps (100 to 200 mg) TID prn for cough. Max 600 mg/day Discontinued benzonatate 200 mg capsule 200 mg PO TID PRN (Reason: cough) Qty: 20 0RF prednisone 50 mg tablet 50 mg PO DAILY 5 Days Qty: 5 0RF oseltamivir [Tamiflu] 75 mg capsule 75 mg PO Q12H 5 Days Qty: 10 0RF methylprednisolone [Medrol (Heriberto)] 4 mg tablets,dose pack See Rx Instructions PO PER PKG DIR Qty: 21 0RF Rx Instructions: PO PER PKG DIR Date of admission: 10/15/24 13:24 Primary Care Provider: PHYSICIAN,ASSISTANT MANAGER QUALITY MANAGEMENT Admitting Provider: Jt Marion Attending physician on admission: Jt Marion Condition: Improved Hospitalist MIPS Heart Failure (Exclusion) Patient has history of Heart Transplant or Left Ventricular Assistive Device?: No IF YES, STOP HERE Heart Failure (Qualifier) Patient has current or prior documentation of LVEF less than or equal to 40%, or mod/servere depressed LVSF?: No IF NO, STOP HERE
[2024-10-18 11:53] LABS: Glucose Point of Care 170 mg/dl (65-105)
== END 2024-10-18 14:40 | disposition home or self-care (01) | DRG 192 ==
LOC: ANHED 00:46 → ANH3MEDSUR 05:23
PROVIDERS: Admitting Provider Internal Medicine; Emergency Provider Emergency Medicine; Visit Provider Nurse Practitioner Family
DX: J44.1 Chronic obstructive pulmonary disease with (acute) exacerbation (principal); N40.0 Benign prostatic hyperplasia without lower urinary tract symptoms; I73.9 Peripheral vascular disease, unspecified; R13.13 Dysphagia, pharyngeal phase; E78.5 Hyperlipidemia, unspecified; G62.9 Polyneuropathy, unspecified; I25.10 Atherosclerotic heart disease of native coronary artery without angina pectoris; M47.816 Spondylosis without myelopathy or radiculopathy, lumbar region; L40.4 Guttate psoriasis; Z87.891 Personal history of nicotine dependence; Z86.16 Personal history of COVID-19; Z90.49 Acquired absence of other specified parts of digestive tract
CPT/HCPCS: 36415; 71045; 80053; 81001; 82948; 83036; 83735; 83880; 85025; 85610; 85730; 87637; 93005; 94640; 96365; 96367; 96372; 96375; 96376; 99285; A9270; G0378; J0456; J0696; J1644; J1815; J2919; J7512

== ENCOUNTER 2025-02-18 15:12 | Outpatient (CLI) | payer MEDICARE, SELFPAY ==
--- OUTSIDE RECORDS SUMMARY | 2025-02-18 15:15 | XMS_ITS | Referral Summary ---
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 Gender Identity Not on file Sexual Orientation [...] 2:23 PM CDT Height 185.4 cm (6' 1) 02/15/2023 2:23 PM CDT Body Mass Index 25.2 02/15/2023 2:23 PM CDT Plan of Treatment Not on file Insurance [facility] MEDICARE ADVANTAGE [place] MED[place] ADVANTAGE [facility] MEDICARE ADVANTAGE [facility] C[employer] PLAN Care Teams Gastroenterology Nurse Practitioner Relationship Specialty Start Date End Date Liza Anderson MD [address] [facility] [address] [place] [address] PCP - General Family Medicine 05/07/20 Liza Anderson MD [address] [facility] [address] [place] [address] Family Medicine 05/07/20
--- OUTSIDE RECORDS SUMMARY | 2025-02-18 15:15 | XMS_ITS | Clinical Summary ---
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
--- OUTSIDE RECORDS SUMMARY | 2025-02-18 15:15 | XMS_ITS | Encounter Summary ---
Author Organization [facility] Address [address] [place] [address] Care Team Providers Care Workers Compensation Claims Assistant Name Role Phone Unavailable Primary Care Provider Unavailabl e Encounter Details Date Type Department Care Team (Late st Contact Info) Description 10/08/[address] 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
--- OUTSIDE RECORDS SUMMARY | 2025-02-18 15:15 | XMS_ITS | Clinical Summary ---
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 Gender Identity Not on file Sexual [...] Well Visit 65+ 2015 Influenza Vaccine (#1) 2025 Insurance [employer] MEDICARE ADVANTAGE [facility] Address: [address] [address] [place] [address] [facility] MEDICARE ADVANTAGE [facility] Address: [address] [address] [place] [address] [facility] [employer] MEDICARE ADVANTAGE [facility] Address: [address] [address] [place] [address] [facility] [employer] HE[employer] PLAN [facility] HMO/PPO Address: [address] [place] [address] Care Teams Tile Erector Relationship Specialty Start Date End Date Liza Anderson MD [address] [facility] [address] [place] [address] PCP - General Family Medicine 05/07/20 Liza Anderson MD [address] [facility] [address] [place] [address] Family Medicine 05/07/20
--- OUTSIDE RECORDS SUMMARY | 2025-02-18 15:15 | XMS_ITS | Encounter Summary ---
Author Organization [facility] Address [address] [place] [address] Care Team Providers Care Electronic Gaming Device Supervisor Name Role Phone Unavailable Primary Care Provider Unavailabl e Encounter Details Date Type Department Care Team (Late st Contact Info) Description 01/24/[address] 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
[2025-02-18 15:55] LABS: Hemoglobin A1C. 6.0 % (<5.7)
[2025-02-18 15:56] LABS: Alanine Aminotransferase 28 U/L (6-50); Albumin Level 4.6 g/dL (3.5-5.1); Alkaline Phosphatase 73 U/L (38-126); Anion Gap 9 mmol/L (4-12); Aspartate Amino Transferase 34 U/L (17-59); Bilirubin,Total 0.6 mg/dL (0.2-1.3); Blood Urea Nitrogen 19 mg/dL (9-20); Calcium 9.3 mg/dL (8.4-10.2); Carbon Dioxide 30 mmol/L (22-30); Chloride 105 mmol/L (98-107); Estimated Glomerular Filt Rate > 60; Glucose 86 mg/dL (65-110); Potassium 4.5 mmol/L (3.4-5.0); Sodium 144 mmol/L (137-145); Total Protein 8.0 g/dL (6.3-8.2)
== END 2025-02-18 15:13 | disposition home or self-care (01) ==
LOC: ANHLAB 15:13
PROVIDERS: PCP Family Medicine; Visit Provider Physician Assistant
DX: E78.5 Hyperlipidemia, unspecified (principal); J43.9 Emphysema, unspecified; R73.01 Impaired fasting glucose
CPT/HCPCS: 36415; 80053; 83036

== ENCOUNTER 2025-06-27 05:23 | Emergency (ER) | payer MEDICARE, SELFPAY ==
[2025-06-27] VITALS (13 sets, daily range): BP systolic 139–170; BP diastolic 71–85; PULSE 52–80; RESP 10–32; TEMP 36.4–37.1; O2SAT 91–100
--- NOTE | ~2025-06-27 | XR_ITS ---
Examination: XR chest 1V portable Clinical History: shortness of breath Comparison: 10/14/2024 Technique: Portable AP Findings: Heart size normal. Emphysema. No acute bony abnormality. IMPRESSION: 1. No acute cardiopulmonary findings given portable technique. Reviewed, dictated and finalized at location R. CAL ASSEMBLER
--- NOTE | 2025-06-27 05:29 | ECG_ITS ---
Test Date: 2025-06-27 05:34:02 Measurements Intervals [place] Rate: 60 P: 102 CT: 222 QRS: 13 QRSD: 80 T: 64 QT: 405 QTc: 405 Interpretive Statements SINUS RHYTHM WITH FIRST DEGREE AV BLOCK ABNORMAL ECG Compared to ECG 10/17/2024 20:43:18 First degree AV block now present Electronically Signed On 06-27-2025 08:45:46 INTERNAL WHOLESALER by Bruno Naranjo M.D.
--- NOTE | 2025-06-27 05:43 | ED.SOB ---
HPI - SOB/Dyspnea General Chief Complaint: Shortness of Breath/Dyspnea Stated Complaint: SOB cant breath Time Seen by Provider: 06/27/25 05:27 Source: patient Mode of arrival: ambulatory Limitations: no limitations History of Present Illness HPI Narrative: This is a 75-year-old male with history of COPD, hypertension who presents the ED for shortness of breath. Patient states that over the past month he has had worsening shortness of breath but over the past couple days it has become even worse. Denies new cough or chest pain. Does note some chest tightness. No known sick contacts. No changes in medications. He believes that his inhalers are not working well anymore. Related Data Home Medications ?Medication ?Instructions ?Recorded ?Confirmed ?Last Taken ?Type memantine 5 mg tablet 5 mg PO DAILY 05/25/24 06/15/25 Unknown History tamsulosin 0.4 mg capsule (Flomax) 0.4 mg PO HS 10/14/24 06/15/25 10/13/24 History budesonide 160 mcg-glycopyr 9 2 inh inhalation BID 06/15/25 06/15/25 Unknown History mcg-formot 4.8 mcg/actuation HFA inhaler (Breztri Aerosphere) Allergies Allergy/AdvReac Type Severity Reaction Status Date / Time No Known Allergies Allergy Verified 06/15/25 13:23 Review of Systems Review of Systems: Gen.: Denies fevers or chills Eyes: Denies eye pain or visual change ENT: Denies congestion Respiratory: As per HPI CV: Denies chest pain or palpitations GI: Denies abdominal pain nausea, emesis or diarrhea denies burning, urgency, frequency or hematuria Musculoskeletal: Denies back pain or muscle pain Neuro: Denies numbness, tingling, weakness or focal weakness Skin: Denies rash Except as documented, all other systems reviewed and negative [facility] Past Medical History Medical History BPH (benign prostatic hyperplasia) COPD exacerbation PVD (peripheral vascular disease) Mild cognitive impairment Subacute sinusitis COPD exacerbation Psychophysiological insomnia Pharyngeal dysphagia Oropharyngeal dysphagia Hyperlipidemia type III Guttate psoriasis 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 Centrilobular emphysema Community acquired pneumonia Otitis media Low vitamin D level Dupuytrens contracture COVID-19 Regurgitation and rechewing Diarrhea Emphysematous COPD Hyperlipidemia Double aortic arch COPD exacerbation Peripheral neuropathy Lumbar spondylosis Tobacco abuse quit 2012 Palmar fibromatosis First degree atrioventricular block Surgical History Surgical History History of prostate surgery History of prostatectomy History of nasal septoplasty History of bladder surgery Due to bladder lesion Hx laparoscopic cholecystectomy Family History Family History Mother Cerebrovascular accident Heart disease Breast cancer Father Liver disease Grandparent Malignant neoplasm of prostate Sibling Coronary artery disease brother Diabetes mellitus Psychiatric illness sister Lung cancer Social History Social History Social History: The patient is and lives with a female friend and her 2 pit bulls. He has a 52 pack per year smoking history. He started smoking between ages 9 in 10 and quit smoking in 2012. He drinks 2-6 beers a week on average. 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 He has 3 children. Code status: Full code (patient states he would not want long-term ventilation/tracheostomy or G-tube) Surrogate decision maker: Candy Smith (daughter) 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 day: 1 Smoking cigarettes per day: 20.0 Years smoked: 50 Smoking pack-years: 50.00 Second hand tobacco smoke exposure: Yes Alcohol intake: current Drinks per week: 6 Substance use: former Substance use type: marijuana Last use: 2yrs Do You Feel Safe in your Home?: Yes Lack of Transportation: No Lack of Food: Often True Current Housing: I Have Housing Concerned About Future Housing: No Difficulty Paying Gas/Electric Bills: No Difficulty Paying for Meds: No Currently Unemployed: No Education: Associate Degree Difficulty w/ Childcare or Family Care: No Living arrangements: with family Occupation/Education: occupation 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 ABDOMINAL: Soft, nontender, nondistended, no rebound or guarding MUSCULOSKELETAl: Moves all extremities. No clubbing, cyanosis or edema. NEURO: Awake and alert. Following commands, speech normal, no focal deficits SKIN:: Warm, dry. No rashes lesions or abrasions PSYCHIATRIC: Normal affect/mood, Course Vital Signs Vital signs: Vital Signs Temperature 97.6 F 06/27/25 05:28 Pulse Rate 69 06/27/25 05:28 Respiratory Rate 20 06/27/25 05:28 Blood Pressure 170/85 H 06/27/25 05:28 Pulse Oximetry 91 06/27/25 05:28 Temperature 98.8 F 06/27/25 06:31 Pulse Rate 57 L 06/27/25 06:30 Respiratory Rate 10 L 06/27/25 06:30 Blood Pressure 144/71 H 06/27/25 06:16 Pulse Oximetry 100 06/27/25 06:30 MDM - SOB/Dyspnea MDM Narrative Medical decision making narrative: 75-year-old male Presenting for shortness of breath. On initial evaluation patient was in no acute distress afebrile, hemodynamic stable. Differentials include but are not limited to: ACS, CHF Exacerbation, COPD exacerbation, PE, PNA, PTX, bronchitis, viral syndrome Notable exam findings: Expiratory wheezes throughout, no respiratory distress Notable lab findings: CBC without significant abnormalities. CMP without significant abnormalities. BNP elevated at 830. COVID/flu/RSV negative. Notable imaging findings: Chest x-ray showed no acute process. Patient was given a DuoNeb with significant improvement of his symptoms. He was also given 125 mg Solu-Medrol. Patient likely had a mild COPD exacerbation. Patient was advised follow-up this creative project manager in the next week to further discuss his breathing treatments at home. He will be given a short course of prednisone. Patient was agreeable to this plan. Given strict return precautions. Medical Records Attestation: I reviewed the patient's medical records. Lab Data Attestation: I reviewed the patient's lab results. 06/27/25 05:40 06/27/25 05:40 Labs: Lab Results 06/27/25 Range/Units 05:40 WBC 7.1 (4.5-10.0) K/mm3 RBC 4.14 L (4.6-6.20) M/mm3 Hgb 11.9 L (14.0-18.0) g/dL Hct 38.1 L (42.0-52.0) % MCV 92.0 (80-100) fl MCH 28.7 (26-34) pg MCHC 31.2 L (32-36) g/dl RDW 13.9 (11.5-14.5) % Plt Count 160 (150-375) k/mm3 MPV 10.0 (7.4-10.4) fl Immature Gran % (Auto) 0.3 (0-0.5) % Neut % (Auto) 54.5 (45.5-73.1) % Lymph % (Auto) 34.5 (18.3-44.2) % Dent % (Auto) 8.3 (2.6-8.5) % Eos % (Auto) 2.0 (0-4.4) % Baso % (Auto) 0.4 (0.2-1.2) % Lymph # (Auto) 2.46 (0.9-3.2) K/mm3 Dent # (Auto) 0.6 (0.1-0.6) K/mm3 Eos # (Auto) 0.1 (0-0.3) K/mm3 Baso # (Auto) 0.0 (0.0-0.1) K/mm3 Abs Immat Gran (auto) 0.02 (0.00-0.031) K/mm3 Absolute Neuts (auto) 3.9 (1.3-6.7) K/mm3 Absolute Nucleated RBC 0.000 (0.0-0.012) K/mm3 Nucleated RBC % 0.0 (0.0-0.2) % Sodium 144 (137-145) mmol/L Potassium 3.8 (3.4-5.0) mmol/L Chloride 108 H (98-107) mmol/L Carbon Dioxide 29 (22-30) mmol/L Anion Gap 7 (4-12) mmol/L BUN 20 (9-20) mg/dL Creatinine 0.91 (0.7-1.3) mg/dL Estim Creat Clear Calc 66 ml/min Estimated GFR > 60 (59 - ) Glucose 115 H (65-110) mg/dL Calcium 8.5 (8.4-10.2) mg/dL Total Bilirubin 0.9 (0.2-1.3) mg/dL AST 30 (17-59) U/L ALT 25 (6-50) U/L Alkaline Phosphatase 78 (38-126) U/L Troponin I < 0.012 (0.000-0.034) ng/mL NT-Pro-B Natriuret Pep 830 H (19.9-100) pg/mL Total Protein 7.0 (6.3-8.2) g/dL Albumin 4.0 (3.5-5.1) g/dL Influenza A (RT-PCR) Negative (Negative) Influenza B (RT-PCR) Negative (Negative) RSV (RT-PCR) Negative (Negative) SARS-CoV-2 RNA (RT-PCR) Negative (Negative) Imaging Data Attestation: I personally reviewed and interpreted this imaging study as follows: My impression: Chest x-ray: Normal cardiac silhouette, no consolidations, no pleural effusions, no pulmonary vascular congestion Radiologist's impression: Impressions Chest X-Ray 06/27/25 06:07 IMPRESSION: 1. No acute cardiopulmonary findings given portable technique. ECG Data EKG #1: Attestation: I personally reviewed and interpreted this ECG as follows: ECG completion date: 06/27/25 ECG completion time: 05:34 Interpretation: Sinus rhythm with 1st degree AV block rate of 60, normal axis, normal intervals, no acute ST or T-wave changes Discharge Plan Discharge Clinical Impression: Acute exacerbation of chronic obstructive pulmonary disease Patient Disposition: Home Condition: Stable Instructions: Antibiotic Form, COPD (Chronic Obstructive Pulmonary Disease) (ED) Additional Instructions: Lab work and imaging showed no evidence of cardiac damage at this time. Your symptoms are most consistent with a COPD exacerbation. You were given prescriptions for prednisone, take as prescribed. Follow up with your PCP in the next week for reevaluation. Return to the ED for new or worsening symptoms. Patient Language: Canadian Prescriptions: New prednisone 20 mg tablet 40 mg PO DAILY 4 Days Qty: 8 0RF Rx Instructions: start taking 06/28/25 No Action memantine 5 mg tablet 5 mg PO DAILY albuterol sulfate 90 mcg/actuation HFA aerosol inhaler 2 puff inhalation QID PRN (Reason: shortness of breath or wheezing) Qty: 8.5 1RF roflumilast 250 mcg tablet See Rx Instructions .ROUTE .COMPLEX Qty: 90 0RF Dose Instruction: TAKE 1 TABLET BY MOUTH DAILY FOR 4 WEEKS Rx Instructions: TAKE 1 TABLET BY MOUTH DAILY FOR 4 WEEKS; After 4 weeks, take 2 tabs daily. Breztri Aerosphere 160-9-4.8 mcg/actuation HFA aerosol inhaler 2 inh inhalation BID fluticasone propionate [Allergy Relief (fluticasone)] 50 mcg/actuation spray,suspension 1 spray intranasal DAILY Qty: 16 0RF Rx Instructions: administer into each nostril tamsulosin [Flomax] 0.4 mg capsule 0.4 mg PO HS (DME) Space Chamber Spacer See Rx Instructions .Route Qty: 1 0RF Rx Instructions: As directed atorvastatin 20 mg tablet See Rx Instructions .ROUTE .COMPLEX Qty: 90 1RF Dose Instruction: TAKE 1 TABLET BY MOUTH DAILY Rx Instructions: TAKE 1 TABLET BY MOUTH DAILY omeprazole 40 mg capsule,delayed release(DR/EC) See Rx Instructions .ROUTE .COMPLEX Qty: 90 1RF Dose Instruction: TAKE 1 CAPSULE BY MOUTH DAILY Rx Instructions: TAKE 1 CAPSULE BY MOUTH DAILY Follow-up/Referrals: José Miguel Schulz MD [Primary Care Provider, Family Practice]
[2025-06-27 05:50] LABS: Hematocrit 38.1 % (42.0-52.0); Hemoglobin 11.9 g/dL (14.0-18.0); Immature Granulocyte Percent A 0.3 % (0-0.5); Lymphocytes Absolute Auto 2.46 K/mm3 (0.9-3.2); Mean Corpuscular HGB Conc 31.2 g/dl (32-36); Mean Corpuscular Hemoglobin 28.7 pg (26-34); Mean Corpuscular Volume 92.0 fl (80-100); Nucleated Red Blood Cells Absolute Auto 0.000 K/mm3 (0.0-0.012); Nucleated Red Blood Cells Perc 0.0 % (0.0-0.2); Platelet Count Result 160 k/mm3 (150-375); Red Blood Count 4.14 M/mm3 (4.6-6.20); White Blood Count 7.1 K/mm3 (4.5-10.0)
[2025-06-27] MEDS: IPRATROPIUM 0.5 MG/ALBUTEROL SULFATE 2.5 MG (BASE) AMPUL.NEB 3 ML INHALATION (05:52)
[2025-06-27 06:08] LABS: Alanine Aminotransferase 25 U/L (6-50); Albumin Level 4.0 g/dL (3.5-5.1); Alkaline Phosphatase 78 U/L (38-126); Anion Gap 7 mmol/L (4-12); Aspartate Amino Transferase 30 U/L (17-59); Bilirubin,Total 0.9 mg/dL (0.2-1.3); Blood Urea Nitrogen 20 mg/dL (9-20); Calcium 8.5 mg/dL (8.4-10.2); Carbon Dioxide 29 mmol/L (22-30); Chloride 108 mmol/L (98-107); Estimated CRCL calculation 66 ml/min; Estimated Glomerular Filt Rate > 60; Glucose 115 mg/dL (65-110); Potassium 3.8 mmol/L (3.4-5.0); Sodium 144 mmol/L (137-145); Total Protein 7.0 g/dL (6.3-8.2)
[2025-06-27 06:14] LABS: Troponin I < 0.012 ng/mL (0.000-0.034)
[2025-06-27 06:18] LABS: NT Pro B Type Natriuretic Pept 830 pg/mL (19.9-100)
[2025-06-27 06:26] LABS: Influenza A QL RT-PCR Negative (Negative); Influenza B QL RT-PCR Negative (Negative); RSV RNA, RT-PCR Negative (Negative); SARS-CoV-2 RNA PCR Negative (Negative)
== END 2025-06-27 06:34 | disposition home or self-care (01) ==
PROVIDERS: Emergency Provider Student in an Organized Health Care Education/Training Program; PCP Family Medicine
DX: J44.1 Chronic obstructive pulmonary disease with (acute) exacerbation (principal); I10 Essential (primary) hypertension; E78.5 Hyperlipidemia, unspecified; F17.210 Nicotine dependence, cigarettes, uncomplicated; Z20.822 Contact with and (suspected) exposure to COVID-19
CPT/HCPCS: 36415; 71045; 80053; 83880; 84484; 85025; 87637; 93005; 94640; 96374; 99284; J2919